=== PATIENT | female | born 1960 | race Caucasian/White ===

== ENCOUNTER → 2016-07-22 | Outpatient (CLI) | payer BC ==
[~2016-07-22] MED LIST: CIPR-255 PO; LACTCAP3 PO; LEVO75TA5 PO; LSN5 PO; MRLP17X PO
[2016-07-22 16:49] LABS: HEMATOCRIT 40.9 % (37-47); MEAN CORPUSCULAR HEMOGLOBIN 29.4 pg (25-34); MEAN CORPUSCULAR HGB CONC 33.7 g/dl (32-36); MEAN PLATELET VOLUME 12.4 fL (7.4-10.4); PLATELET COUNT 257 K/uL (130-400); WHITE BLOOD COUNT 12.47 K/uL (4.8-10.8)
[2016-07-22 17:32] LABS: ALT/SGPT 39 U/L (12-78); BLOOD UREA NITROGEN 20 mg/dl (7-18); BUN/CREATININE RATIO 21.3 (10-20); CALCIUM 9.4 mg/dl (8.5-10.1); CARBON DIOXIDE 26 mmol/L (21-32); CHLORIDE 104 mmol/L (98-107); CREATININE 0.94 mg/dl (0.60-1.20); GLUCOSE 128 mg/dl (70-99); POTASSIUM 4.1 mmol/L (3.5-5.1); SODIUM 138 mmol/L (136-145)
[2016-07-22 17:42] LABS: ALB/GLOB RATIO 1.1 (0.9-2); ALKALINE PHOSPHATASE 69 U/L (45-117); AST/SGOT 20 U/L (15-37)
== END | disposition home or self-care (01) ==
LOC: C.LAB 15:24
PROVIDERS: ATTEND Internal Medicine
DX: I10 Essential (primary) hypertension (principal); E03.9 Hypothyroidism, unspecified

== ENCOUNTER → 2016-08-19 | Outpatient (CLI) | payer BC ==
[2016-08-19 17:29] LABS: COMPLETE YES; HEMATOCRIT 41.4 % (37-47); IG% 0.1 %; LYMPH % 36.5 %; LYMPH ABS # 3.66 K/uL (1.2-3.4); MEAN CELL VOLUME 88.3 fL (80-100); MEAN CORPUSCULAR HEMOGLOBIN 29.6 pg (25-34); MEAN CORPUSCULAR HGB CONC 33.6 g/dl (32-36); MEAN PLATELET VOLUME 11.7 fL (7.4-10.4); MONO % 9.6 %; NEUT % 50.8 %; PLATELET COUNT 241 K/uL (130-400); RED BLOOD COUNT 4.69 M/uL (4.2-5.4); WHITE BLOOD COUNT 10.02 K/uL (4.8-10.8)
[2016-08-19 17:59] LABS: ALT/SGPT 51 U/L (12-78); AST/SGOT 25 U/L (15-37); BLOOD UREA NITROGEN 14 mg/dl (7-18); BUN/CREATININE RATIO 16.4 (10-20); CALCIUM 9.3 mg/dl (8.5-10.1); CARBON DIOXIDE 31 mmol/L (21-32); CHLORIDE 108 mmol/L (98-107); CREATININE 0.83 mg/dl (0.60-1.20); GLUCOSE 84 mg/dl (70-99); POTASSIUM 4.4 mmol/L (3.5-5.1); SODIUM 142 mmol/L (136-145)
[2016-08-19 18:01] LABS: ALB/GLOB RATIO 1.2 (0.9-2); ALKALINE PHOSPHATASE 67 U/L (45-117); AMYLASE 37 U/L (25-115); C-REACTIVE PROTEIN < 0.29 mg/dl (0-0.29)
[2016-08-23 16:37] LABS: IGA SERUM 185 mg/dL (81-463); TIS TRANS IGA 1 U/mL (<4)
== END | disposition home or self-care (01) ==
LOC: C.LAB1850 17:00
PROVIDERS: ATTEND Internal Medicine
DX: R14.0 Abdominal distension (gaseous) (principal)

== ENCOUNTER → 2017-07-21 | Outpatient (CLI) | payer BC ==
[2017-07-21 12:21] LABS: HEMATOCRIT 41.4 % (37-47); MEAN CELL VOLUME 87.2 fL (80-100); MEAN CORPUSCULAR HEMOGLOBIN 29.5 pg (25-34); MEAN CORPUSCULAR HGB CONC 33.8 g/dl (32-36); MEAN PLATELET VOLUME 12.3 fL (7.4-10.4); PLATELET COUNT 253 K/uL (130-400); RED CELL DISTRIBUTION WIDTH CV 12.8 % (11.5-14.5); WHITE BLOOD COUNT 6.76 K/uL (4.8-10.8)
[2017-07-21 12:30] LABS: ALBUMIN 4.3 gm/dl (3.4-5.0); ALT/SGPT 74 U/L (12-78); BLOOD UREA NITROGEN 15 mg/dl (7-18); CALCIUM 9.5 mg/dl (8.5-10.1); CARBON DIOXIDE 29 mmol/L (21-32); CHOLESTEROL 177 mg/dl (0-200); CREATININE 0.85 mg/dl (0.60-1.20); GLUCOSE 105 mg/dl (70-99); POTASSIUM 4.2 mmol/L (3.5-5.1); SODIUM 140 mmol/L (136-145)
[2017-07-21 12:39] LABS: ALKALINE PHOSPHATASE 75 U/L (45-117); AST/SGOT 35 U/L (15-37); LDL CHOLESTEROL CALCULATED 110 mg/dl; TOTAL PROTEIN 7.9 gm/dl (6.4-8.2)
== END | disposition home or self-care (01) ==
LOC: C.LAB 10:55
PROVIDERS: ATTEND Internal Medicine
DX: I10 Essential (primary) hypertension (principal); E03.9 Hypothyroidism, unspecified

== ENCOUNTER 2017-08-18 06:51 | Emergency (ER) | payer BC ==
[~2017-08-18] VITALS: Ht 157.5 cm; Wt 88.1 kg
[2017-08-18 06:53] VITALS: TEMP 36.7; Ht 157.5 cm; Wt 88.1 kg
[2017-08-18] MEDS ORDERED: BNT/10 PO (07:21)
[2017-08-18] MEDS ORDERED: PANT40TA PO (07:21)
[2017-08-18] MEDS ORDERED: SODIUM CHLORIDE 0.9% 1000ML 1,000 ML IV STA (07:23)
[2017-08-18] MEDS ORDERED: KETOROLAC TROMETHAMINE 30 MG/ML VIAL IV STA (07:31)
[2017-08-18 08:05] LABS: BASO ABS # 0.06 K/uL (0-0.2); EOS % 1.4 %; EOS ABS # 0.08 K/uL (0-0.5); HEMATOCRIT 38.4 % (37-47); HEMOGLOBIN 13.1 g/dL (12.0-16.0); IG# 0.01 K/uL (0.00-0.02); LYMPH % 32.8 %; LYMPH ABS # 1.89 K/uL (1.2-3.4); MEAN CELL VOLUME 86.1 fL (80-100); MEAN CORPUSCULAR HEMOGLOBIN 29.4 pg (25-34); MEAN CORPUSCULAR HGB CONC 34.1 g/dl (32-36); MEAN PLATELET VOLUME 11.7 fL (7.4-10.4); MONO % 9.4 %; MONO ABS # 0.54 K/uL (0.11-0.59); NEUT % 55.2 %; NEUT ABS # 3.19 K/uL (1.4-6.5); PLATELET COUNT 228 K/uL (130-400); RED CELL DISTRIBUTION WIDTH CV 12.5 % (11.5-14.5); RED CELL DISTRIBUTION WIDTH SD 39.8 fL (36.4-46.3); WHITE BLOOD COUNT 5.77 K/uL (4.8-10.8)
[2017-08-18 08:15] LABS: PTT PATIENT 27.9 SECONDS (21.0-31.0)
--- NOTE | 2017-08-18 08:15 | DIAGNOSTIC IMAGING REPORT ---
HEAD WITHOUT CONTRAST (CT) CLINICAL HISTORY: 57 years-old Female presenting with headache, arm pain, pain and numbness in left arm and fingers. TECHNIQUE: Multidetector CT imaging of the head was performed without the use of intravenous contrast. IV contrast: None. A dose lowering technique was used consistent with the principles of ALARA (as low as reasonably achievable). COMPARISON: 09/25/2005. CT DOSE (mGy.cm): The estimated cumulative dose is 669.45 mGycm. FINDINGS: [employer]boy topogram: Unremarkable. Ventricles and sulci normal in size. Brain parenchyma normal in appearance with preserved flowers-white differentiation. No mass effect or midline shift. No hemorrhage or acute territorial infarct. No extra-axial fluid collection. Paranasal sinuses and mastoid air cells clear. Calvarium intact. IMPRESSION: 1. No acute intracranial abnormality. Electronically signed by: Tulio Pearson M.D. 08/18/2017 8:14 AM Dictated Date/Time: 08/18/2017 8:12 AM
[2017-08-18 08:20] LABS: ALBUMIN 3.7 gm/dl (3.4-5.0); ALT/SGPT 92 U/L (12-78); AST/SGOT 38 U/L (15-37); BLOOD UREA NITROGEN 15 mg/dl (7-18); CALCIUM 8.6 mg/dl (8.5-10.1); CARBON DIOXIDE 23 mmol/L (21-32); CREATININE 0.89 mg/dl (0.60-1.20); GLUCOSE 114 mg/dl (70-99)
[2017-08-18 08:31] LABS: ALKALINE PHOSPHATASE 84 U/L (45-117); POTASSIUM 4.1 mmol/L (3.5-5.1); SODIUM 140 mmol/L (136-145); TOTAL PROTEIN 6.9 gm/dl (6.4-8.2)
[2017-08-18 08:34] LABS: INFLUENZA B ANTIGEN Neg for Influ B (NEG)
[2017-08-18 09:15] VITALS: BP 142/77; PULSE 55; O2SAT 100
[2017-08-18] MEDS ORDERED: KETO10TA PO (09:33)
--- NOTE | 2017-08-18 09:33 | EMERGENCY ROOM VISIT NOTE ---
History First contact with patient: 07:00 Chief Complaint: NEURO SYMPTOMS Stated Complaint: LEFT ARM PAIN/ NUBMNESS SINCE Thursday Nursing Triage Summary: Patient states "On Thursday, I was up for 21 hours. 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 I started a headache on Thursday after getting called in. I now have pain and numbness to my left arm all the way to my fingers. I did not hurt it all." History of Present Illness The patient is a 57 year old female who presents to the Emergency Room with complaints of "left arm pain/numbness since Thursday". The patient states that she was up for 21 hours on Thursday. 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 She was called in the early hours of the morning and when she woke up Thursday she had a headache in the right temporal region. She states that it progressed into Thursday and did not get any better with Tylenol. She also notes pain going from the left shoulder down to the left fingertips with some numbness/tingling. She denies any speech troubles. She notes that she vomited on Thursday around 2 AM and 5 AM. Left arm pain is aching. She has had similar in the past with a bulging disc in the neck. She notes that the headache is still there but it is dull and radiating to the back of her head. She notes that it was much more severe when it initially happened. She notes that her nausea and vomiting is getting better but the arm pain persists. She took Advil and Tylenol last night. She denies any generalized weakness, constipation, diarrhea, shortness of breath or chest pain. Review of Systems A complete 10-point Review of Systems was discussed with the patient, with pertinent positives and negatives listed in the History of Present Illness. All remaining Review of Systems questions can be considered negative unless otherwise specified. Past Medical/Surgical History Medical Problems: (1) Diverticulitis (2) Diverticulosis (3) Diverticulosis Colon (W/O Ment Of Hemorrhage) (4) GERD (gastroesophageal reflux disease) (5) HTN (hypertension) (6) Hypercholesterolemia (7) Hypertension Nos (8) Hypothyroidism (9) Hypothyroidism Nos Surgical Problems: (1) History of back surgery Family History Heart disease Social History Smoking Status: Never Smoker Alcohol Use: none Drug Use: none Marital Status: single Occupation Status: employed Current/Historical Medications Scheduled Ketorolac Tromethamine (Toradol), 1 TAB PO TID Lactobacillus (Acidophilus), 1 CAP PO TID Levothyroxine Sodium (Levothyroxine Sodium), 75 MCG PO DAILY Lisinopril (Lisinopril), 5 MG PO DAILY Pantoprazole (Protonix), 40 MG PO DAILY Scheduled PRN Dicyclomine HCl (Dicyclomine HCl), 10 MG PO TID PRN for Muscle Spasms Physical Exam Vital Signs Date Time Temp Pulse Resp B/P (MAP) Pulse Ox O2 Delivery O2 Flow Rate FiO2 08/18/17 09:52 08/18/17 09:15 55 17 142/77 100 Room Air 08/18/17 06:53 36.7 84 18 155/101 98 Room Air Physical Exam VITAL SIGNS - Vital signs and nursing notes were reviewed. Stable. GENERAL -57-year-old female appearing her stated age who is in no acute distress. Communicates well with provider and answers questions appropriately. SKIN - Without rashes. No meningeal or petechial rash. HEAD - NC/AT. EYES - PERRL with EOMI bilaterally. Sclera anicteric. EARS - No deformities of external structures noted on gross examination bilaterally. External auditory canals without discharge or otorrhea. Tympanic membranes pearly flowers without retraction or bulging. No fluid or purulent material visualized behind the TM. Handle of malleus, umbo, cone of light, pars tensa/flaccid all easily visualized. NOSE - Midline and without cyanosis. No epistaxis or purulent drainage noted. Septum midline without deviation or septal hematoma noted. MOUTH/OROPHARYNX - Without perioral cyanosis. Buccal mucosa pink and moist and without leukoplakia. Tongue midline with equal elevation of palate bilaterally. No tonsillar hypertrophy, erythema, or exudates noted. Fair dentition noted. NECK - Neck with FROM. Supple to palpation. no lymphadenopathy noted. No nuchal rigidity. LUNGS - Chest wall symmetric without accessory muscle use, intercostals retractions, or central cyanosis. Normal vesicular breath sounds CTA B/L. No wheezes, rales, or rhonchi appreciated. CARDIAC - RRR with S1/S2. No murmur, rubs, or gallops appreciated. EXTREMITIES - No clubbing or peripheral cyanosis. No pretibial edema present. She is neurovascularly intact in the left upper extremity. Excellent left bicipital reflex. +5/5 strength noted in UE/LE bilaterally. No neurovascular deficit appreciated. Decreased range of motion of the left shoulder secondary to pain elicited down the arm. No bony tenderness. NEUROLOGIC - Cranial nerves II through XII grossly intact. Sensory intact to light touch throughout. PSYCH - A&Ox3 and cooperates fully with examiner. Pt is very pleasant and interacts well with examiner. Medical Decision & Procedures ER Provider Diagnostic Interpretation: HEAD WITHOUT CONTRAST (CT) CLINICAL HISTORY: 57 years-old Female presenting with headache, arm pain, pain and numbness in left arm and fingers. TECHNIQUE: Multidetector CT imaging of the head was performed without the use of intravenous contrast. IV contrast: None. A dose lowering technique was used consistent with the principles of ALARA (as low as reasonably achievable). COMPARISON: 09/25/2005. CT DOSE (mGy.cm): The estimated cumulative dose is 669.45 mGycm. FINDINGS: [employer] topogram: Unremarkable. Ventricles and sulci normal in size. Brain parenchyma normal in appearance with preserved flowers-white differentiation. No mass effect or midline shift. No hemorrhage or acute territorial infarct. No extra-axial fluid collection. Paranasal sinuses and mastoid air cells clear. Calvarium intact. IMPRESSION: 1. No acute intracranial abnormality. Electronically signed by: Tulio Pearson M.D. 08/18/2017 8:14 AM Dictated Date/Time: 08/18/2017 8:12 AM Laboratory Results 08/18/17 07:50 Red Blood Count 4.46, Mean Corpuscular Volume 86.1, Mean Corpuscular Hemoglobin 29.4, Mean Corpuscular Hemoglobin Concent 34.1, Mean Platelet Volume 11.7, Neutrophils (%) (Auto) 55.2, Lymphocytes (%) (Auto) 32.8, Monocytes (%) (Auto) 9.4, Eosinophils (%) (Auto) 1.4, Basophils (%) (Auto) 1.0, Neutrophils # (Auto) 3.19, Lymphocytes # (Auto) 1.89, Monocytes # (Auto) 0.54, Eosinophils # (Auto) 0.08, Basophils # (Auto) 0.06 08/18/17 07:50 Test 4/17/18 07:44 08/18/17 07:50 Influenza Type A Antigen Neg for Influ A (NEG) Influenza Type B Antigen Neg for Influ B (NEG) White Blood Count 5.77 K/uL (4.8-10.8) Red Blood Count 4.46 M/uL (4.2-5.4) Hemoglobin 13.1 g/dL (12.0-16.0) Hematocrit 38.4 % (37-47) Mean Corpuscular Volume 86.1 fL (80-100) Mean Corpuscular Hemoglobin 29.4 pg (25-34) Mean Corpuscular Hemoglobin Concent 34.1 g/dl (32-36) Platelet Count 228 K/uL (130-400) Mean Platelet Volume 11.7 fL (7.4-10.4) Neutrophils (%) (Auto) 55.2 % Lymphocytes (%) (Auto) 32.8 % Monocytes (%) (Auto) 9.4 % Eosinophils (%) (Auto) 1.4 % Basophils (%) (Auto) 1.0 % Neutrophils # (Auto) 3.19 K/uL (1.4-6.5) Lymphocytes # (Auto) 1.89 K/uL (1.2-3.4) Monocytes # (Auto) 0.54 K/uL (0.11-0.59) Eosinophils # (Auto) 0.08 K/uL (0-0.5) Basophils # (Auto) 0.06 K/uL (0-0.2) RDW Standard Deviation 39.8 fL (36.4-46.3) RDW Coefficient of Variation 12.5 % (11.5-14.5) Immature Granulocyte % (Auto) 0.2 % Immature Granulocyte # (Auto) 0.01 K/uL (0.00-0.02) Erythrocyte Sedimentation Rate 2 mm/hr (0-21) Prothrombin Time 10.0 SECONDS (9.0-12.0) Prothromb Time International Ratio 1.0 (0.9-1.1) Activated Partial Thromboplast Time 27.9 SECONDS (21.0-31.0) Partial Thromboplastin Ratio 1.1 Anion Gap 8.0 mmol/L (3-11) Est Creatinine Clear Calc Drug Dose 72.8 ml/min Estimated GFR () 84.0 Estimated GFR (Non- 72.5 BUN/Creatinine Ratio 16.6 (10-20) Calcium Level 8.6 mg/dl (8.5-10.1) Magnesium Level 2.0 mg/dl (1.8-2.4) Total Bilirubin 0.5 mg/dl (0.2-1) Aspartate Amino Transf (AST/SGOT) 38 U/L (15-37) Alanine Aminotransferase (ALT/SGPT) 92 U/L (12-78) Alkaline Phosphatase 84 U/L (45-117) Troponin I < 0.015 ng/ml (0-0.045) C-Reactive Protein < 0.29 mg/dl (0-0.29) Total Protein 6.9 gm/dl (6.4-8.2) Albumin 3.7 gm/dl (3.4-5.0) Globulin 3.2 gm/dl (2.5-4.0) Albumin/Globulin Ratio 1.2 (0.9-2) Thyroid Stimulating Hormone (TSH) 0.688 uIu/ml (0.300-4.500) Lyme Disease IgG Antibody NEG (NEG) Lyme Disease IgM Antibody NEG (NEG) Medications Administered Medications (Trade) Dose Ordered Sig/Matthew Route Start Time Stop Time Status Last Admin Dose Admin Sodium Chloride 1,000 ml @ 999 mls/hr Q1H1M STAT IV 08/18/17 07:23 08/18/17 08:23 DC 08/18/17 07:52 999 MLS/HR Ketorolac Tromethamine (Toradol Inj) 30 mg NOW STAT IV 08/18/17 07:31 08/18/17 07:32 DC 08/18/17 07:52 30 MG Medical Decision Patient was seen and evaluated as above in room B2. Review was performed of nursing notes and vital signs. After obtaining a thorough history and physical examination the above work up was performed. She presents to us today with headache, left arm pain and nausea. She is nontoxic on exam. I believe that she is likely experiencing sequelae of sleep deprivation, and some dehydration. The headache is much better and she has no neurovascular deficit on exam. There is history of bulging disc in the neck and her left arm pain is worse with movement. There is no neurovascular deficit. I do not suspect CVA. She was given Toradol and feeling better. CBC reveals no concerning leukocytosis or anemia. Inflammatory markers negative. Coags negative. Metabolic panel reveals no evidence of kidney or liver failure. The AST and ALT were elevated but she is to follow-up with her family doctor for. Influenza and Lyme testing negative. CT scan was obtained of the head because of her presentation which was found to be negative. She was also given fluids. The patient was educated upon management, had questions answered prior to discharge, and was discharged home in good condition. Case was discussed with the attending physician. EKG per my interpretation reveals normal sinus rhythm rate of 58 bpm, and when compared to previous EKG of May 18, 2014 and no significant change was found. I attest that I have personally reviewed the patient medication list. I attest that I have reviewed the patient's blood pressure and it was found to be elevated likely secondary to situation. In the evaluation and treatment of this patient, the following differential diagnoses were considered: Concussion, Contrecoup Injury, Brain Tumor, Depression, Encephalitis, Hypothyroidism, Meningitis, CVA, TIA, Migraine, Cluster Headache, Intracranial Abnormality, Intracranial Hemorrhage, Subdural Hematoma, Subarachnoid Hemorrhage, Hydrocephalus. Impression Primary Impression: Headache Additional Impression: Arm pain, left Departure Information Dispostion Home / Self-Care Condition GOOD Prescriptions Ketorolac Tromethamine (TORADOL) 10 Mg Tab 1 TAB PO TID for 5 Days, #15 TAB Prov: Jt Barrera PA-C 08/18/17 Referrals Emeterio Aguilar D.OFabi (PCP) Patient Instructions My [facility] Additional Instructions You have been treated in the Emergency Department for a Headache. You have been prescribed Toradol to be used for pain control. Please do not take this with ibuprofen. For pain control, you can use the following [id number] medicines (if >12 yo): - Regular strength (325mg/tab) Tylenol (acetaminophen) 2 tabs every 4-6 hours as needed. Do not exceed 12 tablets in a 24 hour period. Avoid taking more than 3 grams (3000 mg) of Tylenol per day. This includes any other sources of acetaminophen you may take on a regular basis. - Regular strength (200 mg/tab) Advil (ibuprofen) 1-2 tabs every 4-6 hours as needed. Do not exceed a dose of 3200 mg per day. Please do not take this with Toradol. You should relax in a quiet, dark place for the rest of the day. Avoid any possible triggers including: cigarette smoke, caffeine, nicotine, chocolate, wine, beer, loud noises or music, or bright lights. You should schedule a follow-up appointment in 2-3 days with your Primary Care Provider or established Neurologist for further evaluation and treatment of your Headache. Return to the Emergency Department if your current symptoms worsen despite treatment course outlined above, or if you develop any of the following symptoms : intractable pain despite aforementioned treatment course, visual disturbances , loss of vision, unilateral weakness or facial drooping, slurring of speech, loss of coordination, or loss of consciousness. Problem Qualifiers
== END 2017-08-18 09:53 | disposition home or self-care (01) ==
LOC: C.EDB 06:53
DX: R51 Headache (principal); M79.602 Pain in left arm; K21.9 Gastro-esophageal reflux disease without esophagitis; I10 Essential (primary) hypertension; E03.9 Hypothyroidism, unspecified; K57.30 Diverticulosis of large intestine without perforation or abscess without bleeding; Z82.49 Family history of ischemic heart disease and other diseases of the circulatory system; Z79.899 Other long term (current) drug therapy

== ENCOUNTER 2021-11-13 23:23 | Observation (INO) ==
[2021-11-13] MEDS ORDERED: SODIUM CHLORIDE 0.9% 1000ML 1,000 ML IV ONE (23:46)
[2021-11-14] MEDS ORDERED: ACETAMINOPHEN 1,000 MG/100 ML VIAL IV STA (00:06)
[2021-11-14] MEDS ORDERED: FAMOTIDINE 20MG IV PUSH 20 MG/5 ML SYR IV STA (00:06)
[2021-11-14] MEDS ORDERED: ONDANSETRON INJ 2 MG/ML 2 ML VIAL IV STA (00:07)
[2021-11-14 00:50] LABS: Basophils # (auto) 0.05 K/uL (0-0.2); Basophils % (auto) 0.6 %; Eosinophils # (auto) 0.11 K/uL (0-0.50); Eosinophils % (auto) 1.3 %; Hematocrit (blood only) 37.4 % (34.1-44.9); Hemoglobin 12.3 g/dl (12.0-16.0); Immature Granulocytes # (auto) 0.04 K/uL (0.00-0.02); Immature Granulocytes % (auto) 0.5 %; Lymphocytes # (auto) 2.26 K/uL (1.2-3.4); Lymphocytes % (auto) 26.1 %; Mean Corpuscular Hemoglobin 28.9 pg (25.0-34.0); Mean Corpuscular Hgb Conc 32.9 g/dL (32.0-36.0); Mean Platelet Volume 12.2 fL (9.4-12.3); Monocytes # (auto) 0.73 K/uL (0.24-0.82); Monocytes % (auto) 8.4 %; Neutrophils # (auto) 5.48 K/uL (1.4-6.5); Neutrophils % (auto) 63.1 %; Platelet Count 195 K/uL (130-400); RDW Coefficient of Variation 12.2 % (11.5-14.5); RDW Standard Deviation 39.3 fL (36.4-46.3); Red Blood Count 4.25 M/uL (3.93-5.22); White Blood Count 8.67 K/ul (4.8-10.8)
[2021-11-14 01:17] LABS: Albumin Globulin Ratio 1.4 (0.9-2); Albumin Level 3.9 gm/dl (3.4-5.0); BUN Creatinine Ratio 19.4 (10-20); Bilirubin,Total 1.1 mg/dl (0.2-1.0); Calcium 8.3 mg/dl (8.5-10.1); Creatinine Clr Calc Pharmacy 69.5 ml/min; Est GFR (African American) 77.4 ml/min; Est GFR (Non-African American) 66.8 ml/min; Globulin 2.8 gm/dl (2.5-4.0); Magnesium 2.1 mg/dl (1.7-2.4); Phosphorus 3.3 mg/dl (2.5-4.9); Potassium 3.9 mmol/L (3.5-5.1); Total Protein 6.7 gm/dl (6.0-8.3)
[2021-11-14 01:18] LABS: Troponin I High Sensitivity 3.4 pg/ml (0-14)
[2021-11-14] MEDS ORDERED: SODIUM CHLORIDE 0.9% 1000ML 1,000 ML IV ONE (02:22)
--- NOTE | 2021-11-14 03:34 | Emergency Department Note ---
Impression & Plan Syncope, Diverticulitis, Abdominal pain, Nausea, Sinus bradycardia ED Provider Note NAME: EAGLE HERNANDEZ AGE: 61 SEX: F ARRIVES VIA: Ambulance INFORMANT: Patient ED PROVIDER(S): Mayo Arreola MD CHIEF COMPLAINT: Syncope PLAN: Disposition: Admit MEDICAL DECISION MAKING: The patient is a pleasant 61-year-old woman with a past medical history of hypertension who presents to the emergency department accompanied by her for evaluation of syncopal episode that occurred prior to arrival in the setting of the patient being discharged from this facility/emergency department shortly before her syncopal episode and was walking up to her house when she had increased pain and nausea and then fainted and lowered to the ground by her . reports she had 15 seconds of LOC and noticed some muscular spasms but once he awoke her she was not confused and was alert and oriented. The patient was diagnosed earlier this evening with diverticulitis where there was question of a possible coloenteric fistula however was seen by general surgery and recommendations were for outpatient follow-up and oral antibiotics. Patient reports she continues to have pain and nausea. She was treated with morphine prior to her discharge. On arrival the patient is uncomfortable no acute distress, afebrile stable vital signs. She has generalized lower abdominal tenderness without guarding or rebound. EKG demonstrates sinus bradycardia without evidence of high-grade block and no overt acute ischemia. Chest x-ray negative for acute cardiopulmonary process per my preliminary review. WBC, H/H and platelets within normal limits. Chemistry without metabolic acidosis. LFTs are unremarkable. High-sensitivity troponin 3.4, within normal limits. Lipase is elevated at 300, nonspecific. CT of the head was negative for acute process per preliminary stat rad report. Given the patient's ongoing pain and nausea which is likely contributing to vasovagal episode the patient agrees with plan for admission for further management. [facility] for [facility]. Triage Nursing notes reviewed and agree them. Prior medical records reviewed Vital Signs: reviewed and remarkable for sinus bradycardia. Differential diagnosis: Vasovagal event, dehydration, infection, hypoglycemia, electrolyte ab normalities, cardiac sources, intracerebral event, pulmonary embolism, seizure, toxicologic, neurologic, as well as other pathologies. ER treatment provided: See below. Diagnostics interpreted by me: ECG: Sinus bradycardia, 45 bpm, no ectopy, no high-grade block, no overt ST elevation or depression, QTC 446, QRS 96. Cardiac Monitoring: An order for continuous cardiac monitoring was placed and demonstrated Sinus bradycardia, 45 bpm, no ectopy. Laboratory studies: See below Imaging studies: See below Consultation(s): Case was discussed with Dr. Wu, [facility] hospitalist, who will evaluate the patient for admission. HPI: The patient is a pleasant 61-year-old woman with a past medical history of hypertension who presents to the emergency department accompanied by her for evaluation of syncopal episode that occurred prior to arrival in the setting of the patient being discharged from this facility/emergency department shortly before her syncopal episode and was walking up to her house when she had increased pain and nausea and then fainted and lowered to the ground by her . reports she had 15 seconds of LOC and noticed some muscular spasms but once he awoke her she was not confused and was alert and oriented. The patient was diagnosed earlier this evening with diverticulitis where there was question of a possible coloenteric fistula however was seen by general surgery and recommendations were for outpatient follow-up and oral antibiotics. Patient reports she continues to have pain and nausea. She was treated with morphine prior to her discharge. ROS: See above HPI for pertinent positives & negatives. A total of 10 systems reviewed and were otherwise negative. VITALS:See Below PHYSICAL EXAMINATION: GENERAL: Awake, alert, uncomfortable-appearing, in no distress HENT: Normocephalic, atraumatic. Oropharynx with dry mucous membranes and otherwise unremarkable. EYES: Normal conjunctiva. Sclera non-icteric. EOMI. No nystamgus. PEARRL. NECK: Supple. No nuchal rigidity. FROM. No JVD. RESPIRATORY: Clear to auscultation. CARDIAC: Regular rate, normal rhythm. Extremities warm and well perfused. Pulses equal. ABDOMEN: Soft, non-distended. No tenderness to palpation. No rebound or guarding. No masses. RECTAL: Deferred. MUSCULOSKELETAL: Chest examination reveals no tenderness. The back is symmetrical on inspection without obvious abnormality. There is no CVA t enderness to palpation. No joint edema. LOWER EXTREMITIES: Calves are equal size bilaterally and non-tender. No edema. No discoloration. NEURO: Normal sensorium. No sensory or motor deficits noted. 5/5 strength and SILT x 4 extremities. Cerebellar function intact including [id number], alternating palms, [id number]. SKIN: No rash or jaundice noted. Mayo Arreola MD Past Med/Surg History Medical History Diverticulosis GERD (gastroesophageal reflux disease) HTN (hypertension) Hypercholesterolemia PT NOT SURE Hypothyroidism Nausea after anesthesia Surgical History History of back surgery "ant cervical arthroplasty with discectomy C4-C6"/MILD LIMITATION WITH LO OKING UP History of colonoscopy S/P laparoscopic procedure r/o ectopic , had early IUP per notes Family History Mother Family history of diabetes mellitus Sister Family history of diabetes mellitus Sister Family history of diabetes mellitus Sister Family history of diabetes mellitus Denies family history of Ovarian cancer Deep vein thrombosis Clotting disorder Breast cancer Colorectal cancer Uterine cancer Social History Smoking Status: Former smoker Hx Alcohol Use: Yes Hx Substance Use: No Preferred Language: Guamanian Communication Ability: Effective Tool Adjuster Required: No Beliefs That Will Affect Care: None marital status: Current Living Situation: Spouse current occupational status: employed Feels Safe at Home: Yes Assistive Devices: None Allergies Allergies Allergy/AdvReac Type Severity Reaction Status Date / Time No Known Allergies Allergy Verified 09/19/21 14:14 Home Meds Home Medications Medication Instructions Recorded Confirmed lisinopril 5 mg tablet 10 mg PO QAM 08/06/20 09/19/21 levothyroxine 75 mcg capsule 75 mcg PO QAM 08/20/20 09/19/21 Previous Rx's Medication Instructions Recorded ciprofloxacin HCl 500 mg tablet 500 mg PO BID #20 tabs 11/13/21 (Cipro) metronidazole 500 mg tablet 500 mg PO Q8H 10 days #30 tabs 11/13/21 Results & Data (ED) Vital Signs Vital Signs - 24 hr 11/13/21 23:33 11/13/21 23:33 11/13/21 23:45 Pulse Rate 43 L Pulse Rate [Apical] Respiratory Rate 16 Respiratory Effort / Characteristics Respiratory Depth Blood Pressure 108/61 Blood Pressure [Right Arm] Blood Pressure Mean 76 Blood Pressure Mean [Right Arm] Pulse Oximetry 95 98 97 Oxygen Delivery Method Room Air Room Air Room Air Sepsis Recent Fever Within 48 Hours No Sepsis New/Unexplained Change in Mental Status No Sepsis Action Taken by Nursing No Action Required 11/14/21 01:10 11/14/21 03:00 Pulse Rate Pulse Rate [Apical] 42 L Respiratory Rate 19 Respiratory Effort / Characteristics Non-Labored Non-Labored Respiratory Depth Normal Normal Blood Pressure Blood Pressure [Right Arm] 97/63 L Blood Pressure Mean Blood Pressure Mean [Right Arm] 74 Pulse Oximetry Oxygen Delivery Method Sepsis Recent Fever Within 48 Hours Sepsis New/Unexplained Change in Mental Status Sepsis Action Taken by Nursing Laboratory Data Attestation: I reviewed the patient's lab results. Result diagrams: 11/14/21 00:38 11/14/21 00:38 Lab Results 11/14/21 11/14/21 Range/Units 00:38 00:38 WBC 8.67 (4.8-10.8) K/ul RBC 4.25 (3.93-5.22) M/uL Hgb 12.3 (12.0-16.0) g/dl Hct 37.4 (34.1-44.9) % MCV 88.0 (80.0-100.0) fL MCH 28.9 (25.0-34.0) pg MCHC 32.9 (32.0-36.0) g/dL RDW Std Deviation 39.3 (36.4-46.3) fL RDW Coeff of Kris 12.2 (11.5-14.5) % Plt Count 195 (130-400) K/uL MPV 12.2 (9.4-12.3) fL Immature Gran % (Auto) 0.5 % Neut % (Auto) 63.1 % Lymph % (Auto) 26.1 % Colbert % (Auto) 8.4 % Eos % (Auto) 1.3 % Baso % (Auto) 0.6 % Neut # (Auto) 5.48 (1.4-6.5) K/uL Lymph # (Auto) 2.26 (1.2-3.4) K/uL Colbert # (Auto) 0.73 (0.24-0.82) K/uL Eos # (Auto) 0.11 (0-0.50) K/uL Baso # (Auto) 0.05 (0-0.2) K/uL Immature Gran # (Auto) 0.04 H (0.00-0.02) K/uL Sodium 137 (136-145) mmol/L Potassium 3.9 (3.5-5.1) mmol/L Chloride 105 (98-107) mmol/L Carbon Dioxide 26 (21-32) mmol/L Anion Gap 6 (3-11) BUN 18 (6-23) mg/dl Creatinine 0.93 (0.6-1.2) mg/dl Est Cr Clr Drug Dosing 69.5 ml/min Est GFR ( Amer) 77.4 ml/min Est GFR (Non-Af Amer) 66.8 ml/min BUN/Creatinine Ratio 19.4 (10-20) Glucose 190 H (70-99(Fasting)) mg/dl Calcium 8.3 L (8.5-10.1) mg/dl Phosphorus 3.3 (2.5-4.9) mg/dl Magnesium 2.1 (1.7-2.4) mg/dl Total Bilirubin 1.1 H (0.2-1.0) mg/dl AST 24 (13-39) U/L ALT 39 (7-52) U/L Alkaline Phosphatase 57 (34-104) U/L Troponin I High Sens 3.4 (0-14) pg/ml Total Protein 6.7 (6.0-8.3) gm/dl Albumin 3.9 (3.4-5.0) gm/dl Globulin 2.8 (2.5-4.0) gm/dl Albumin/Globulin Ratio 1.4 (0.9-2) Lipase 303 H (11-82) U/L Administered Medications Discontinued Medications Sodium Chloride (Nss 1000ml) 1,000 mls @ 999 mls/hr IV .Q1H1M ONE Stop: 11/14/21 00:46 Last Infusion: 11/14/21 02:22 Dose: 0 mls/hr Documented By: Admin: 11/14/21 00:30 Dose: 999 mls/hr Documented By: ALMA Famotidine (Pepcid 20mg Iv Push) 20 mg in 5 mls @ 2.5 mls/min IV NOW STA Stop: 11/14/21 00:07 Last Admin: 11/14/21 01:17 Dose: 2.5 mls/min Documented By: ALMA Acetaminophen (Ofirmev) 1,000 mg in 100 mls @ 400 mls/hr IV NOW STA Stop: 11/14/21 00:20 Last Infusion: 11/14/21 02:22 Dose: 0 mls/hr Documented By: Admin: 11/14/21 01:16 Dose: 400 mls/hr Documented By: ALMA Sodium Chloride (Nss 1000ml) 1,000 mls @ 999 mls/hr IV .Q1H1M ONE Stop: 11/14/21 03:22 Last Admin: 11/14/21 02:59 Dose: 999 mls/hr Documented By: AMCIEJ Ondansetron HCl (Ondansetron Inj 2 Mg/Ml 2 Ml Vial) 4 mg IV NOW STA Stop: 11/14/21 00:08 Last Admin: 11/14/21 01:16 Dose: 4 mg Documented By: ALMA Imaging Data My Impression: CXR: No acute cardiopulmonary process per my preliminary review. Radiologist's Impression: STATRAD Preliminary Findings Only See Final Report For Complete Findings CT HEAD: No intracranial hemorrhage, mass-effect or midline shift. There is no abnormal extra axial fluid collection. No evidence of acute infarct. Mild periventricular white matter hypodensities are most consistent with chronic microangiopathy. The visualized paranasal sinuses and mastoid air cells are clear. No fracture. Radiologist: Jessy Tam MD Study ready at 01:31 and initial results transmitted at 01:52 Discharge Plan Visit Data Chief Complaint: Syncope ED Provider: Mayo Arreola Discharge Problem: Syncope, Diverticulitis, Abdominal pain, Nausea, Sinus bradycardia Forms Stand Alone Forms: My [facility] Prescriptions Prescriptions: No Action lisinopril 5 mg tablet 10 mg PO QAM levothyroxine 75 mcg Capsule 75 mcg PO QAM ciprofloxacin HCl [Cipro] 500 mg tablet 500 mg PO BID Qty: 20 0RF metronidazole 500 mg tablet 500 mg PO Q8H 10 Days Qty: 30 0RF Referrals Referrals: Edel Lisa DO [Primary Care Provider] -
[2021-11-14] MEDS ORDERED: NITROGLYCERIN SL 0.4 MG/TAB TAB SL PRN (05:21)
[2021-11-14] MEDS ORDERED: CARBOHYDRATES FOR HYPOGLYCEMIA PO PRN (05:30)
[2021-11-14] MEDS ORDERED: GLUCAGON FOR INJ 1 MG VIAL IM PRN (05:30)
[2021-11-14] MEDS ORDERED: DEXTROSE 50% 50 ML SYRINGE IV PRN (05:30)
[2021-11-14] MEDS ORDERED: GLUCOSE 10 TAB/TUBE PO PRN (05:30)
[2021-11-14] MEDS ORDERED: GLUCOSE 40% GEL 15 GM TUBE PO PRN (05:30)
[2021-11-14] MEDS: ONDANSETRON INJ 2 MG/ML 2 ML VIAL IV PRN (05:38)
[2021-11-14] MEDS: SODIUM CHLORIDE 0.9% 1000ML 1,000 ML IV SCH ×2 (05:38→16:10)
[2021-11-14] MEDS ORDERED: PIPERACILLIN/TAZOBACTAM 4.5 GM in DEXTROSE 5% 100 ML IV ONE (05:45)
[2021-11-14] MEDS: LEVOTHYROXINE SODIUM 75 MCG TABLET PO SCH (06:25)
--- NOTE | 2021-11-14 07:01 | CT Scan Report ---
CT SCAN OF THE BRAIN WITHOUT IV CONTRAST CLINICAL HISTORY: Syncope. Nausea. COMPARISON STUDY: CT of the brain dated 08/18/2017. TECHNIQUE: Unenhanced axial CT scan of the brain is performed from the vertex to the skull base. A d ose lowering technique was utilized adhering to the principles of ALARA. CT DOSE: 537.48 mGy.cm FINDINGS: Brain parenchyma: The brain parenchyma is normal in appearance. There is no hemorrhage, mass effect, or evidence of acute territorial ischemia by CT criteria. Jon-white matter differentiation is preser taco. No extra-axial fluid collection is seen. Ventricles, sulci, cisterns: Normal in configuration. Intracranial vasculature: The visualized intracranial vasculature at the skull base is normal in appe arance. Calvarium: Unremarkable. Sinuses and mastoids: The visualized paranasal sinuses are clear. The mastoid air cells are well pneu matized. Orbits: The bony orbits are grossly intact. IMPRESSION: There is no hemorrhage, mass effect, or evidence of acute territorial ischemia by CT jessie jones. ACT 112: Negative or not required by law. Electronically signed by: Jonathan Cotter M.D. 11/14/2021 7:00 AM
[2021-11-14 07:36] LABS: Basophils # (auto) 0.04 K/uL (0-0.2); Basophils % (auto) 0.5 %; Eosinophils # (auto) 0.03 K/uL (0-0.50); Eosinophils % (auto) 0.4 %; Hematocrit (blood only) 34.7 % (34.1-44.9); Hemoglobin 11.4 g/dl (12.0-16.0); Immature Granulocytes # (auto) 0.02 K/uL (0.00-0.02); Immature Granulocytes % (auto) 0.3 %; Lymphocytes # (auto) 1.45 K/uL (1.2-3.4); Lymphocytes % (auto) 19.1 %; Mean Corpuscular Hemoglobin 29.3 pg (25.0-34.0); Mean Corpuscular Hgb Conc 32.9 g/dL (32.0-36.0); Mean Corpuscular Volume 89.2 fL (80.0-100.0); Mean Platelet Volume 12.6 fL (9.4-12.3); Monocytes # (auto) 0.51 K/uL (0.24-0.82); Monocytes % (auto) 6.7 %; Neutrophils # (auto) 5.56 K/uL (1.4-6.5); Platelet Count 179 K/uL (130-400); RDW Coefficient of Variation 12.3 % (11.5-14.5); RDW Standard Deviation 40.1 fL (36.4-46.3); Red Blood Count 3.89 M/uL (3.93-5.22); White Blood Count 7.61 K/ul (4.8-10.8)
--- NOTE | 2021-11-14 07:40 | History and Physical Report ---
DATE OF ADMISSION: 11/14/2021. CHIEF COMPLAINT: Syncope. HISTORY OF PRESENT ILLNESS: A 61-year-old female with past medical history significant for type 2 diabetes, currently not on any medications, hypothyroidism, hypertension, diverticula of colon, presents with syncope. The patient was in the ER with abdominal pain and found to have sigmoid diverticulitis . Seen by surgery in Er and as there is no abscess or perforation and doing okay was discharged on oral antibiotics to follow as an outpatient. As soon as going home, when she was getting out of the car, she felt very nauseous, did not feel good, dizzy, felt weak and her sat her in a chair and she was sweating and hot. went inside to get a cool compressor, when he came back ,her eyes were rolling and she passed out for about 15 seconds and he tried to wake her up and called the ambulance. After 15 seconds, she woke up, but she seemed confused until the ambulance came when she seemed to talk and was brought in here. Currently, the patient is alert and oriented. Her heart rate is in the 40s. Denies any chest pain ,no shortness of breath, no cough. Feeling cold, but no fever. No blurred visions, no earache, no runny nose, no sore throat, otherwise, ambulates okay, has lower abdominal pain, she reports 6-7/10 severity. Has mild headache. Did not move her bowels for the last 2 days. Normal bladder movements. No swelling in the legs. ALLERGIES: No known drug allergies. PAST MEDICAL HISTORY: As mentioned above. PAST SURGICAL HISTORY: Anterior cervical arthroplasty at C4-C5 and C5-C6 levels. Lumbar disk arthroplasty. Treatment of ectopic . MEDICATIONS: The patient is on atorvastatin 40 mg p.o. daily, ciprofloxacin 500 mg p.o. b.i.d., levothyroxine 75 mcg p.o. daily, lisinopril 10 mg p.o. daily, metronidazole 500 mg p.o. q.8 hours. FAMILY HISTORY: Significant for sister has lymphoma, diabetes, hypertension. Father has diabetes, heart disorder, hypertension. Mother has heart disorder. Maternal grandfather has heart disorder. Paternal grandfather has heart disease. Maternal grandmother has heart disease. Paternal grandmother has heart disease. SOCIAL HISTORY: , no smoking. Alcohol occasional. No drug use. REVIEW OF SYSTEMS: As per HPI. Rest of the review of systems is negative. PHYSICAL EXAMINATION: GENERAL: The patient is obese, not in acute distress. VITAL SIGNS: Temperature afebrile, pulse 42, respiratory rate 19, blood pressure 97/63, oxygen 97% on room air. HEENT: Pupils equal, round and reactive to light. Oral mucosa moist. NECK: No JVD, no neck masses. CARDIOVASCULAR: S1 and S2 heard. Regular rate and rhythm. No murmur, no gallop. RESPIRATORY SYSTEM: Normal AP diameter. No accessory muscle use. No wheezing, no crackles. ABDOMEN: Soft, bowel sounds sluggish. Left lower quadrant abdominal tenderness present. Mild guarding. No rigidity, no distention. CENTRAL NERVOUS SYSTEM: Cranial nerves II through XII are grossly intact, nonfocal. EXTREMITIES: No edema, no erythema. LABORATORY DATA: WBC 8.6, hemoglobin 12.3, hematocrit 37.4, platelets 195. Sodium 137, potassium 3.9, chloride 105, bicarb 26, BUN is 18, creatinine 0.9, serum glucose 190, calcium 8.3, phosphorus 3.3, magnesium 2.2, total bilirubin 1.1, AST 24, ALT 39, alkaline phosphatase 61. Troponin I high sensitivity 3.4. Lipase 303. IMAGINGS: CT of the head, preliminary report, no acute findings. Chest x-ray, preliminary report, no acute findings. EKG: Sinus bradycardia at a rate of 45, no significant change was found. ASSESSMENT AND PLAN: This 61-year-old female presents with syncope. 1. Syncope. The patient was in the ER for diverticulitis, was discharged with oral antibiotics. After going home, getting out of the car, she had a syncopal episode that lasted about [address] of the head unremarkable. EKG showing sinus bradycardia, currently alert and oriented. We will monitor in tele floor, orthostatics, could be vasovagal from the pain. We will place her on IV fluids, normal saline 100 mL per hour. We will get an echocardiogram, serial troponins and consult cardiology. 2. Diverticulitis: placed on Zosyn while in hospital.. 3. History of hypertension: Currently, blood pressure is on lower side. We will hold lisinopril. Getting fluids. 4. History of hyperlipidemia: Continue statin. 5. History of diabetes: Not on any medication. Follow HbA1c levels. Place on insulin sliding scale. 6. Deep venous thrombosis prophylaxis: SCDs for now. DISPOSITION: Monitor in the tele floor. Expect to discharge home and follow with family doctor. Level 1 full code. PT, OT prior to discharge. Social service to help with discharge planning. Job ID: [id number]
--- NOTE | 2021-11-14 07:44 | XRay Report ---
SINGLE VIEW CHEST CLINICAL HISTORY: Atypical chest pain. FINDINGS: An AP, portable, upright chest radiograph is compared to study dated 05/18/2014. The cardiom ediastinal silhouette is top normal for projection. Mild atelectasis is noted at the lung bases. The lungs and pleural spaces are otherwise clear. No pneumothorax is seen. The skeletal structures are os teopenic. The bony thorax is grossly intact. Fusion hardware is noted in the lower cervical spine. IMPRESSION: No active disease in the chest. ACT 112: Negative or not required by law. Electronically signed by: Jonathan Cotter M.D. 11/14/2021 7:43 AM
[2021-11-14 08:20] LABS: Calcium 7.7 mg/dl (8.5-10.1); Creatinine Clr Calc Pharmacy 79.4 ml/min; Est GFR (African American) 92.9 ml/min; Est GFR (Non-African American) 80.1 ml/min; Potassium 4.7 mmol/L (3.5-5.1); Troponin I High Sensitivity 2.4 pg/ml (0-14)
--- NOTE | 2021-11-14 08:32 | Cardiology Consultation ---
Date of Consultation November 14, 2021 Assessment & Plan (1) Vasovagal syncope: (2) Diverticulitis: (3) Abdominal pain: (4) Sinus bradycardia: (5) Hypertension: Plan Patient with diverticulitis, diagnosed in the ER yesterday. Discharged with appropriate meds and liquid diet Upon returning home, she developed worsening abdominal pain with nausea, hot/flushed sensation and had syncopal spell while sitting on her front porch. LOC lasting about 15 seconds. No injuries. No incontinence. Returned to the ER. She was borderline hypotensive and bradycardic on EKG. She also had received high dose pain meds several hours before event. HS troponin negative. She has a long history of sinus jazmín per past EKG's with HR"s in the 40-60 bpm, without symptoms. Echo is pending. Likely vasovagal event in setting of severe abdominal pain, pain meds. Will review echo when available and monitor telemetry, but syncope does not appear to be secondary to symptomatic sinus bradycardia. No indication for pacemaker implantation at this time. Hold antihypertensives due to borderline hypotension. Her lipase is higher today compared to yesterday. Consider GI referral for further tx and evaluation of diverticulitis. Continue gentle hydration. Case to be discussed with Dr. Hopkins. Will follow. Supervising Physician Co-Signing Physician Notes 61-year-old female presented emergency department with abdominal discomfort and diagnosed with diverticulitis. She developed severe nausea and retching associated with abdominal discomfort. She became acutely lightheaded and passed out however she did not injure herself. Admitted through the emergency department. Telemetry demonstrates sinus bradycardia. She is currently feeling better. No lightheadedness or dizziness. Denies chest discomfort or shortness of breath. Denies history of syncope prior to this admission. PE: VSS. GEN: NAD, AAO x3. Heart: Regular, bradycardic, normal S1-S2. No murmur. Lungs: Clear bilateral, no rales, rhonchi, wheeze. Abdomen: Soft, diffuse tenderness. No rebound or guarding. Extremities: No edema. A/P: Agree with above PA-C history, physical exam, assessment and plan. Syncope likely related to vasovagal event in the setting of abdominal discomfort and nausea. No symptomatic bradycardia, significant pauses, or heart block recorded since admission. Continue to monitor telemetry. No medication changes at this time. History of Present Illness Reason for Consultation: Syncope Requesting Physician: Dr. Wu Attending Physician: Dr. Hopkins History of Present Illness Patient is a 61-year-old female presented to [facility] emergency department after a syncopal episode. 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 She was to discharged approximately 1 hour prior to event after being diagnosed with acute diverticulitis. Apparently when she returned home she was walking into her house when she developed severe abdominal pain nausea dizziness and had a syncopal event. W itnessed by her and loss of consciousness approximately 15 seconds. No bowel or bladder incontinence. History includes: Hypertension Dyslipidemia Hypothyroidism Sinus bradycardia, with prior EKG's demonstrating sinus bradycardia in the 50's. In 2018, she was evaluated by cardiology for atypical chest pain. She underwent exercise stress echo at that time which was negative for inducible ischemia, with normal LVEF and no significant valvular heart disease. UPon arrival to the emergency department, patient symptoms had resolved. She was mildly bradycardic in the mid 40s to 50s on EKG and telemetry. Blood pressure was also borderline hypotensive. She reportedly had nothing to eat/drink all day due to abdominal pain. She was admitted for further evaluation and work-up. EKG on arrival demonstrating Sinus bradycardia at 45 bpm. no acute ischemic changes. HS troponin normal. Head CT was negative for acute process. She reports being given high dose pain meds prior to discharge yesterday, possibly contributing. She denies recent symptoms of dizziness or other episodes of syncope. She has had HR's in the 40-60 range per old EKG's. At time of consult, patient resting in bed. She was able to eat liquid breakfast. She notes ongoing abdominal pain and diffuse tenderness. No recurrent dizziness, lightheadedness, syncope or near syncope. No recent chest pain or unusual shortness of breath. No sense of palpitations. No orthopnea, PND or edema. No fever, cough, chills. Allergies Allergy/AdvReac Type Severity Reaction Status Date / Time No Known Allergies Allergy Verified 09/19/21 14:14 Home Medications Medication Instructions Recorded Confirmed Type lisinopril 5 mg tablet 10 mg PO QAM 08/06/20 11/14/21 History levothyroxine 75 mcg capsule 75 mcg PO QAM 08/20/20 11/14/21 History ciprofloxacin HCl 500 mg tablet 500 mg PO BID #20 tabs 11/13/21 11/14/21 Rx (Cipro) metronidazole 500 mg tablet 500 mg PO Q8H 10 days #30 tabs 11/13/21 11/14/21 Rx atorvastatin 40 mg tablet 40 mg PO DAILY 11/14/21 11/14/21 History Patient History Medical History Diverticulosis GERD (gastroesophageal reflux disease) HTN (hypertension) Hypercholesterolemia PT NOT SURE Hypothyroidism Nausea after anesthesia Surgical History History of back surgery "ant cervical arthroplasty with discectomy C4-C6"/MILD LIMITATION WITH LOOKING UP History of colonoscopy S/P laparoscopic procedure r/o ectopic , had early IUP per notes Family History Mother Family history of diabetes mellitus Sister Family history of diabetes mellitus Sister Family history of diabetes mellitus Sister Family history of diabetes mellitus Denies family history of Ovarian cancer Deep vein thrombosis Clotting disorder Breast cancer Colorectal cancer Uterine cancer Social History Smoking Status: Never smoker Second Hand Exposure: No; Do You Dip or Chew Tobacco: No; Tobacco Cessation Education Requested by Patient: No Hx Alcohol Use: Yes Alcohol type: wine Hx Substance Use: No Preferred Language: Swedish Communication Ability: Effective Disc Recordist Required: No Beliefs That Will Affect Care: None marital status: Current Living Situation: Spouse current occupational status: employed Other Information That Helps Us Care for You: No Feels Safe at Home: Yes Safety Concerns: Feels Safe At This Time Assistive Devices: None Review of Systems Review of Systems: All systems reviewed & are unremarkable except as noted in HPI & below Physical Exam Constitutional: WD/WN, vitals as above + ill appearing Respiratory: normal respiratory effort, lungs clear to auscultation Cardiovascular: RRR, no murmur, no edema Gastrointestinal (Abdomen): Inspection/Auscultation: + abdomen distended and normal bowel sounds Percussion/Palpation: + abdomen tender Skin: no rashes, warm and dry Neurologic: PERRL, EOMI, accommodation nl, no face palsy, no dysarthria Psychiatric: A+Ox3, euthymic affect Results & Data ([facility]) Vital Signs (Past 12 Hours) Vital Signs Temp Pulse Pulse Pulse Resp BP BP 11/14/21 06:22 36.4 C L 47 L 17 101/66 11/14/21 06:10 46 L 11/14/21 05:21 36.4 C L 52 L 15 98/61 L 11/14/21 05:21 11/14/21 05:51 36.4 C L 52 L 15 98/61 L 11/14/21 05:49 62 11/14/21 05:00 48 L 12 11/14/21 04:50 47 L 10 L 104/67 11/14/21 04:40 41 L 15 11/14/21 04:30 46 L 11 L 11/14/21 04:20 49 L 17 11/14/21 04:10 57 L 19 11/14/21 04:00 45 L 28 H 11/14/21 03:50 43 L 17 11/14/21 03:40 47 L 14 11/14/21 03:30 46 L 14 11/14/21 03:20 49 L 24 11/14/21 03:10 44 L 13 11/14/21 03:00 49 L 13 11/14/21 02:50 47 L 14 11/14/21 02:40 44 L 17 11/14/21 02:30 46 L 14 11/14/21 02:22 45 L 12 11/14/21 02:10 45 L 12 11/14/21 02:00 45 L 17 11/14/21 02:00 124/70 11/14/21 01:50 42 L 13 11/14/21 01:40 44 L 12 11/14/21 01:37 97/63 L 11/14/21 01:37 42 L 15 11/14/21 01:36 43 L 14 11/14/21 01:15 101/72 11/14/21 01:15 43 L 14 11/14/21 01:10 45 L 15 11/14/21 01:00 42 L 11 L 11/14/21 00:50 42 L 12 11/14/21 00:40 44 L 12 11/14/21 00:30 41 L 13 11/14/21 00:20 46 L 14 11/14/21 00:10 42 L 20 11/14/21 00:00 44 L 13 11/13/21 23:50 45 L 13 11/13/21 23:40 43 L 14 11/13/21 23:33 45 L 12 11/14/21 05:15 11/14/21 01:10 42 L 19 97/63 L 11/13/21 23:45 11/13/21 23:33 11/13/21 23:33 43 L 16 108/61 Pulse Ox Pulse Ox O2 Del Method O2 Del Method 11/14/21 06:22 97 Room Air 11/14/21 06:10 11/14/21 05:21 98 Room Air 11/14/21 05:21 98 Room Air 11/14/21 05:51 98 11/14/21 05:49 11/14/21 05:00 96 11/14/21 04:50 95 11/14/21 04:40 95 11/14/21 04:30 96 11/14/21 04:20 96 11/14/21 04:10 96 11/14/21 04:00 95 11/14/21 03:50 95 11/14/21 03:40 95 11/14/21 03:30 99 11/14/21 03:20 96 11/14/21 03:10 97 11/14/21 03:00 96 11/14/21 02:50 96 11/14/21 02:40 97 11/14/21 02:30 96 11/14/21 02:22 98 11/14/21 02:10 97 11/14/21 02:00 98 11/14/21 02:00 11/14/21 01:50 96 11/14/21 01:40 97 11/14/21 01:37 11/14/21 01:37 11/14/21 01:36 96 11/14/21 01:15 11/14/21 01:15 11/14/21 01:10 11/14/21 01:00 11/14/21 00:50 11/14/21 00:40 11/14/21 00:30 11/14/21 00:20 11/14/21 00:10 98 11/14/21 00:00 98 11/13/21 23:50 97 11/13/21 23:40 98 11/13/21 23:33 11/14/21 05:15 Room Air 11/14/21 01:10 11/13/21 23:45 97 Room Air 11/13/21 23:33 98 Room Air 11/13/21 23:33 95 Room Air Laboratory Results Laboratory Results WBC 7.61 K/ul (4.8-10.8) 11/14/21 06:46 RBC 3.89 M/uL (3.93-5.22) L 11/14/21 06:46 Hgb 11.4 g/dl (12.0-16.0) L 11/14/21 06:46 Hct 34.7 % (34.1-44.9) 11/14/21 06:46 MCV 89.2 fL (80.0-100.0) 11/14/21 06:46 MCH 29.3 pg (25.0-34.0) 11/14/21 06:46 MCHC 32.9 g/dL (32.0-36.0) 11/14/21 06:46 RDW Std Deviation 40.1 fL (36.4-46.3) 11/14/21 06:46 RDW Coeff of Kris 12.3 % (11.5-14.5) 11/14/21 06:46 Plt Count 179 K/uL (130-400) 11/14/21 06:46 MPV 12.6 fL (9.4-12.3) H 11/14/21 06:46 Immature Gran % (Auto) 0.3 % 11/14/21 06:46 Neut % (Auto) 73.0 % 11/14/21 06:46 Lymph % (Auto) 19.1 % 11/14/21 06:46 Collier % (Auto) 6.7 % 11/14/21 06:46 Eos % (Auto) 0.4 % 11/14/21 06:46 Baso % (Auto) 0.5 % 11/14/21 06:46 Neut # (Auto) 5.56 K/uL (1.4-6.5) 11/14/21 06:46 Lymph # (Auto) 1.45 K/uL (1.2-3.4) 11/14/21 06:46 Collier # (Auto) 0.51 K/uL (0.24-0.82) 11/14/21 06:46 Eos # (Auto) 0.03 K/uL (0-0.50) 11/14/21 06:46 Baso # (Auto) 0.04 K/uL (0-0.2) 11/14/21 06:46 Immature Gran # (Auto) 0.02 K/uL (0.00-0.02) 11/14/21 06:46 Sodium 136 mmol/L (136-145) 11/14/21 06:46 Potassium 4.7 mmol/L (3.5-5.1) D 11/14/21 06:46 Chloride 108 mmol/L (98-107) H 11/14/21 06:46 Carbon Dioxide 24 mmol/L (21-32) 11/14/21 06:46 Anion Gap 4 (3-11) 11/14/21 06:46 BUN 16 mg/dl (6-23) 11/14/21 06:46 Creatinine 0.80 mg/dl (0.6-1.2) 11/14/21 06:46 Est Cr Clr Drug Dosing 79.4 ml/min 11/14/21 06:46 Est GFR ( Amer) 92.9 ml/min 11/14/21 06:46 Est GFR (Non-Af Amer) 80.1 ml/min 11/14/21 06:46 BUN/Creatinine Ratio 20.0 (10-20) 11/14/21 06:46 Glucose 176 mg/dl (70-99(Fasting)) H 11/14/21 06:46 Calcium 7.7 mg/dl (8.5-10.1) L 11/14/21 06:46 Phosphorus 3.3 mg/dl (2.5-4.9) 11/14/21 00:38 Magnesium 2.0 mg/dl (1.7-2.4) 11/14/21 06:46 Total Bilirubin 1.1 mg/dl (0.2-1.0) H 11/14/21 00:38 AST 24 U/L (13-39) 11/14/21 00:38 ALT 39 U/L (7-52) 11/14/21 00:38 Alkaline Phosphatase 57 U/L (34-104) 11/14/21 00:38 Troponin I High Sens 2.4 pg/ml (0-14) 11/14/21 06:46 Total Protein 6.7 gm/dl (6.0-8.3) 11/14/21 00:38 Albumin 3.9 gm/dl (3.4-5.0) 11/14/21 00:38 Globulin 2.8 gm/dl (2.5-4.0) 11/14/21 00:38 Albumin/Globulin Ratio 1.4 (0.9-2) 11/14/21 00:38 Lipase 303 U/L (11-82) H 11/14/21 00:38 Impressions Chest X-Ray 11/13/21 23:45 SINGLE VIEW CHEST CLINICAL HISTORY: Atypical chest pain. FINDINGS: An AP, portable, upright chest radiograph is compared to study dated 05/18/2014. The cardiomediastinal silhouette is top normal for projection. Mild atelectasis is noted at the lung bases. The lungs and pleural spaces are otherwise clear. No pneumothorax is seen. The skeletal structures are osteopenic. The bony thorax is grossly intact. Fusion hardware is noted in the lower cervical spine. IMPRESSION: No active disease in the chest. ACT 112: Negative or not required by law. Electronically signed by: Jonathan Cotter M.D. 11/14/2021 7:[address] 11/14/21 00:08 CT SCAN OF THE BRAIN WITHOUT IV CONTRAST CLINICAL HISTORY: Syncope. Nausea. COMPARISON STUDY: CT of the brain dated 08/18/2017. TECHNIQUE: Unenhanced axial CT scan of the brain is performed from the vertex to the skull base. A dose lowering technique was utilized adhering to the principles of ALARA. CT DOSE: 537.48 mGy.cm FINDINGS: Brain parenchyma: The brain parenchyma is normal in appearance. There is no hemorrhage, mass effect, or evidence of acute territorial ischemia by CT criteria. Jon-white matter differentiation is preserved. No extra-axial fluid collection is seen. Ventricles, sulci, cisterns: Normal in configuration. Intracranial vasculature: The visualized intracranial vasculature at the skull base is normal in appearance. Calvarium: Unremarkable. Sinuses and mastoids: The visualized paranasal sinuses are clear. The mastoid air cells are well pneumatized. Orbits: The bony orbits are grossly intact. IMPRESSION: There is no hemorrhage, mass effect, or evidence of acute territorial ischemia by CT criteria. ACT 112: Negative or not required by law. Electronically signed by: Jonathan Cotter M.D. 11/14/2021 7:00 AM Diagnostic Findings Telemetry reviewed: Sinus bradycardia ranging 45 to 65 bpm since admission. No pauses or high degree AV block. EKG"s reviewed: Sinus bradycardia at 45 bpm, no acute changes Echo pending Medications Administered Medications lisinopril 5 mg tablet 10 mg PO QAM 08/06/20 [History Confirmed 11/14/21] levothyroxine 75 mcg capsule 75 mcg PO QAM 08/20/20 [History Confirmed 11/14/21] ciprofloxacin HCl 500 mg tablet (Cipro) 500 mg PO BID #20 tabs 11/13/21 [Rx Confirmed 11/14/21] metronidazole 500 mg tablet 500 mg PO Q8H 10 days #30 tabs 11/13/21 [Rx Confirmed 11/14/21] atorvastatin 40 mg tablet 40 mg PO DAILY 11/14/21 [History Confirmed 11/14/21] Home Medications Acetaminophen (Acetaminophen 325 Mg Tab) 650 mg PO Q4H PRN PRN Reason: Pain or Fever Stop: 12/14/21 05:20 Atorvastatin Calcium (Atorvastatin 40 Mg Tab) 40 mg PO DAILY [facility]VIN Stop: 12/14/21 08:59 Dextrose (Dextrose 50% 50 Ml Syringe) 25 - 50 ml IV UD PRN; Protocol PRN Reason: Hypoglycemia Protocol Stop: 12/14/21 05:29 Glucagon (Glucagon For Inj 1 Mg Vial) 1 mg IM UD PRN; Protocol PRN Reason: Hypoglycemia Protocol Stop: 12/14/21 05:29 Glucose (Glucose 40% Gel 15 Gm Tube) 15 - 30 gm PO UD PRN; Protocol PRN Reason: Hypoglycemia Protocol Stop: 12/14/21 05:29 Glucose (Glucose 10 Tab/Tube) 4 - 8 tab PO UD PRN; Protocol PRN Reason: Hypoglycemia Protocol Stop: 12/14/21 05:29 Sodium Chloride (Nss 1000ml) 1,000 mls @ 100 mls/hr IV .Q10H ALVIN Stop: 12/14/21 05:20 Last Admin: 11/14/21 05:38 Dose: 100 mls/hr Piperacillin Sod/Tazobactam (Sod 4.5 gm/ Dextrose) 120 mls @ 30 mls/hr IV Q8H ALVIN; Protocol Stop: 11/24/21 11:59 Insulin Aspart (Insulin Aspart Per Unit) 0 units SC ACHS [facility] Stop: 12/14/21 07:29 Levothyroxine Sodium (Levothyroxine Sodium 75 Mcg Tablet) 75 mcg PO DAILYBB [facility] Stop: 12/14/21 06:29 Last Admin: 11/14/21 06:25 Dose: 75 mcg Miscellaneous (Carbohydrates For Hypoglycemia ) 15 - 30 gm PO UD PRN PRN Reason: Hypoglycemia Treatment Stop: 12/14/21 05:29 Nitroglycerin (Nitroglycerin Sl 0.4 Mg/Tab Tab) 0.4 mg SL Q5M PRN PRN Reason: Chest Pain Stop: 12/14/21 05:20 Ondansetron HCl (Ondansetron Inj 2 Mg/Ml 2 Ml Vial) 4 mg IV Q6H PRN PRN Reason: Nausea Stop: 12/14/21 05:20 Last Admin: 11/14/21 05:38 Dose: 4 mg
[2021-11-14] MEDS: ATORVASTATIN 40 MG TAB PO SCH (09:00)
[2021-11-14] MEDS: INSULIN ASPART PER UNIT SC SCH ×4 (09:01→21:54)
[2021-11-14 10:56] LABS: Estimated Average Glucose 151 mg/dl; Hemoglobin A1C 6.9 % (4.5-5.6)
--- NOTE | 2021-11-14 12:30 | Electrocardiogram Report ---
Test Reason : Blood Pressure : / mmHG Vent. Rate : 045 BPM Atrial Rate : 045 BPM P-R Int : 182 ms QRS Dur : 096 ms QT Int : 516 ms P-R-T Axes : 061 039 032 degrees QTc Int : 446 ms Sinus bradycardia Otherwise normal ECG When compared with ECG of 08-AUG-2020 15:14, No significant change was found Confirmed by Zack Watts ([id number]) on 11/14/2021 12:29:59 PM Referred By: REFERRED SELF Confirmed By:Phan Watts
[2021-11-14] MEDS: PIPERACILLIN/TAZOBACTAM 4.5 GM in DEXTROSE 5% 100 ML IV SCH (12:44)
[2021-11-14] MEDS: ACETAMINOPHEN 325 MG TAB PO PRN ×2 (17:29→21:36)
--- NOTE | 2021-11-14 19:47 | Communication Note ---
Date of Service: November 14, 2021 Pt was seen and examined for syncope and diverticulitis. She is complaint on abdominal tenderness due to the diverticulitis and currently on IV zosyn. Diet advance to full liquid. Her syncopal episode mostly vasovagal. CT head showed no acute intracranial finding. No cardiac arrhythmia noted on telemonitor. cardiology on board. No more testing from cardiac standpoint. Continue monitor closely in telemetry. MD Pretty
[2021-11-15] MEDS: PIPERACILLIN/TAZOBACTAM 4.5 GM in DEXTROSE 5% 100 ML IV SCH ×3 (01:01→17:49)
[2021-11-15] MEDS: SODIUM CHLORIDE 0.9% 1000ML 1,000 ML IV SCH ×4 (02:10→22:41)
[2021-11-15] MEDS: LEVOTHYROXINE SODIUM 75 MCG TABLET PO SCH (05:22)
[2021-11-15] MEDS: INSULIN ASPART PER UNIT SC SCH ×4 (08:00→20:26)
[2021-11-15] MEDS: ATORVASTATIN 40 MG TAB PO SCH (08:28)
[2021-11-15] MEDS ORDERED: bisacodyL 5 MG TABEC PO ONE (09:31)
[2021-11-15 10:41] LABS: BUN Creatinine Ratio 8.6 (10-20); Calcium 8.1 mg/dl (8.5-10.1); Creatinine Clr Calc Pharmacy 69.7 ml/min; Est GFR (African American) 77.4 ml/min; Est GFR (Non-African American) 66.8 ml/min; Potassium 4.2 mmol/L (3.5-5.1)
[2021-11-15] MEDS: ACETAMINOPHEN 325 MG TAB PO PRN (11:23)
[2021-11-15] MEDS: ONDANSETRON INJ 2 MG/ML 2 ML VIAL IV PRN (16:58)
--- NOTE | 2021-11-15 18:05 | Electrocardiogram Report ---
Test Reason : Blood Pressure : / mmHG Vent. Rate : 054 BPM Atrial Rate : 054 BPM P-R Int : 170 ms QRS Dur : 084 ms QT Int : 440 ms P-R-T Axes : 059 056 027 degrees QTc Int : 417 ms Sinus bradycardia Otherwise normal ECG When compared with ECG of 13-NOV-2021 23:36, No significant change was found Confirmed by Zack Watts ([id number]) on 11/15/2021 6:04:56 PM Referred By: REFERRED SELF Confirmed By:Phan Watts
--- NOTE | 2021-11-15 22:07 | Hospitalist Progress Note ---
Date of Service November 15, 2021 Assessment & Plan (1) Syncope: Plan: Present on admission for brief episode of syncope Possible related to vasovagal withsevere abdominal pain, pain meds. CT head showed no hemorrhage, mass effect, or evidence of acute territorial ischemia No focal neuro deficit exam ECHO showed normal LV wall motion. EF 65-70% Cardiology on board Syncope does not appear to be secondary to symptomatic sinus bradycardia as per cardio Clinically stable Diverticulitis CT abd/pelvis on 11/13 showed Mild acute sigmoid diverticulitis. No perforation or abscess. Lipase increased to 300, now trending down Currently on IV Zosyn Will advance diet to full liquid Continue monitor closely Bradycardia Long history of sinus jazmín per past EKG's with HR"s in the 40-60 bpm, without symptoms Cardiology on board syncope does not appear to be secondary to symptomatic sinus bradycardia as per cardiology No indication for pacemaker implantation at this time. Continue monitor History of hypertension BP stable Continue to hold Lisinopril due to borderline BP History of hyperlipidemia Continue statin. History of diabetes HgbA1c 6.9 (11/14/21) Continue Insulin sliding scale Continue monitor BS Deep venous thrombosis prophylaxis: SCDs Will add Lovenox subq Code status Full code Admission and Anticipated Discharge Date Admission Date: November 14, 2021 Subjective Pt was seen and examined for syncope and abdominal pain Lying in bed with no acute distress with as bedside Pt said that she continues to have abdominal tenderness Denies any chest pain, palpitation, dizziness and SOB Review of Systems Review of Systems: All systems reviewed & are unremarkable except as noted in Subjective Physical Exam Physical Exam: General- No acute distress Head- atraumatic Eyes- PERRL, EOMI, ENT- oropharynx clear Neck- supple, no JVD Lungs- clear to auscultation Heart- regular rhythm; no murmur Abdomen- normal bowel sounds, +abdominal tenderness Extremities- no calf tenderness Neuro- alert, oriented x 3; PERRL, EOMI; no facial palsy; no dysarthria Skin- warm & dry Results & Data Results & Data ([facility]) Vital Signs (Past 12 Hours) Vital Signs Temp Pulse Pulse Resp BP Pulse Ox O2 Del Method 11/15/21 19:00 37.1 C 49 L 16 120/81 97 11/15/21 15:39 36.7 C 54 L 18 125/78 97 Room Air 11/15/21 12:27 36.7 C 52 L 16 137/85 97 Room Air
[2021-11-16] MEDS: PIPERACILLIN/TAZOBACTAM 4.5 GM in DEXTROSE 5% 100 ML IV SCH ×2 (01:39→08:51)
[2021-11-16] MEDS ORDERED: FUROSEMIDE 40 MG/4 ML VIAL IV ONE (03:43)
[2021-11-16] MEDS ORDERED: LEVALBUTEROL HCL 1.25 MG/3 ML NEB NEB STA (03:43)
[2021-11-16] MEDS ORDERED: FUROSEMIDE INJ 20 MG/2 ML VIAL IV ONE ×2 (03:43→15:24)
[2021-11-16] MEDS: LEVOTHYROXINE SODIUM 75 MCG TABLET PO SCH (06:15)
--- NOTE | 2021-11-16 07:38 | XRay Report ---
XR chest 1V portable HISTORY: wheezing COMPARISON: Chest 11/14/2021. FINDINGS: No pneumothorax. The cardiac silhouette is borderline enlarged. Cervical spinal fusion hard marcos is again noted. There is mild central pulmonary vascular congestion without overt edema. This palumbo s developed in the interval. Suspect trace bilateral pleural effusions. IMPRESSION: Interval development of mild central pulmonary vascular congestion and trace bilateral pleural effusi ons. ACT 112: Negative or not required by law. Electronically signed by: Kyler Washington M.D. 11/16/2021 7:36 AM
[2021-11-16] MEDS: INSULIN ASPART PER UNIT SC SCH ×3 (08:51→17:16)
[2021-11-16] MEDS: ATORVASTATIN 40 MG TAB PO SCH (08:51)
[2021-11-16] MEDS ORDERED: ENOXAPARIN INJ 40 MG/0.4 ML SYR SQ SCH (09:00)
[2021-11-16] MEDS ORDERED: bisacodyL 5 MG TABEC PO ONE (11:08)
--- NOTE | 2021-11-16 11:25 | Electrocardiogram Report ---
Test Reason : Blood Pressure : / mmHG Vent. Rate : 050 BPM Atrial Rate : 050 BPM P-R Int : 168 ms QRS Dur : 088 ms QT Int : 446 ms P-R-T Axes : 051 051 019 degrees QTc Int : 406 ms Sinus bradycardia Otherwise normal ECG When compared with ECG of 15-NOV-2021 06:30, No significant change was found Confirmed by Ra Valdovinos ([id number]) on 11/16/2021 11:24:48 AM Referred By: REFERRED SELF Confirmed By:Ra Valdovinos
--- NOTE | 2021-11-16 17:40 | Discharge Summary ---
Date of Service November 16, 2021 Admission HPI Per Admitting Provider CHIEF COMPLAINT: Syncope. HISTORY OF PRESENT ILLNESS: A 61-year-old female with past medical history significant for type 2 diabetes, currently not on any medications, hypothyroidism, hypertension, diverticula of colon, presents with syncope. The patient was in the ER with abdominal pain and found to have sigmoid diverticulitis . Seen by surgery in Er and as there is no abscess or perforation and doing okay was discharged on oral antibiotics to follow as an outpatient. As soon as going home, when she was getting out of the car, she felt very nauseous, did not feel good, dizzy, felt weak and her sat her in a chair and she was sweating and hot. went inside to get a cool compressor, when he came back ,her eyes were rolling and she passed out for about 15 seconds and he tried to wake her up and called the ambulance. After 15 seconds, she woke up, but she seemed confused until the ambulance came when she seemed to talk and was brought in here. Currently, the patient is alert and sherlyn ented. Her heart rate is in the 40s. Denies any chest pain ,no shortness of breath, no cough. Feeling cold, but no fever. No blurred visions, no earache, no runny nose, no sore throat, otherwise, ambulates okay, has lower abdominal pain, she reports 6-7/10 severity. Has mild headache. Did not move her bowels for the last 2 days. Normal bladder movements. No swelling in the legs. Admission Exam Per Admitting Provider GENERAL: The patient is obese, not in acute distress. VITAL SIGNS: Temperature afebrile, pulse 42, respiratory rate 19, blood pressure 97/63, oxygen 97% on room air. HEENT: Pupils equal, round and reactive to light. Oral mucosa moist. NECK: No JVD, no neck masses. CARDIOVASCULAR: S1 and S2 heard. Regular rate and rhythm. No murmur, no gallop. RESPIRATORY SYSTEM: Normal AP diameter. No accessory muscle use. No wheezing, no crackles. ABDOMEN: Soft, bowel sounds sluggish. Left lower quadrant abdominal tenderness present. Mild guarding. No rigidity, no distention. CENTRAL NERVOUS SYSTEM: Cranial nerves II through XII are grossly intact, nonfocal. EXTREMITIES: No edema, no erythema. Principal Diagnosis Syncope Diverticulitis Bradycardia History of hypertension History of hyperlipidemia History of diabetes Discharge Exam General- No acute distress Head- atraumatic Eyes- PERRL, EOMI, ENT- oropharynx clear Neck- supple, no JVD Lungs- clear to auscultation Heart- regular rhythm; no murmur Abdomen- normal bowel sounds, +abdominal tenderness Extremities- no calf tenderness Neuro- alert, oriented x 3; PERRL, EOMI; no facial palsy; no dysarthria Skin- warm & dry Discharge Data Allergies Allergy/AdvReac Type Severity Reaction Status Date / Time No Known Allergies Allergy Verified 09/19/21 14:14 Consultations 11/14/21 02:26 ED Decision to Admit Stat 11/14/21 08:00 Consult Cardiology Routine Ordered Studies 11/14/21 00:08 CT head/brain wo con Urgent XR chest 1V portable HISTORY: wheezing COMPARISON: Chest 11/14/2021. FINDINGS: No pneumothorax. The cardiac silhouette is borderline enlarged. Cervical spinal fusion hardware is again noted. There is mild central pulmonary vascular congestion without overt edema. This has developed in the interval. Suspect trace bilateral pleural effusions. IMPRESSION: Interval development of mild central pulmonary vascular congestion and trace bilateral pleural effusions. ACT 112: Negative or not required by law. Electronically signed by: Kyler Washington M.D. 11/16/2021 7:36 AM Dictated:11/16/21734 Transcribed: 11/16/21734 CT SCAN OF THE BRAIN WITHOUT IV CONTRAST CLINICAL HISTORY: Syncope. Nausea. COMPARISON STUDY: CT of the brain dated 08/18/2017. TECHNIQUE: Unenhanced axial CT scan of the brain is performed from the vertex to the skull base. A dose lowering technique was utilized adhering to the principles of ALARA. CT DOSE: 537.48 mGy.cm FINDINGS: Brain parenchyma: The brain parenchyma is normal in appearance. There is no hemorrhage, mass effect, or evidence of acute territorial ischemia by CT criteria. Jon-white matter differentiation is preserved. No extra-axial fluid collection is seen. Ventricles, sulci, cisterns: Normal in configuration. Intracranial vasculature: The visualized intracranial vasculature at the skull base is normal in appearance. Calvarium: Unremarkable. Sinuses and mastoids: The visualized paranasal sinuses are clear. The mastoid air cells are well pneumatized. Orbits: The bony orbits are grossly intact. IMPRESSION: There is no hemorrhage, mass effect, or evidence of acute territorial ischemia by CT criteria. ACT 112: Negative or not required by law. Electronically signed by: Jonathan Cotter M.D. 11/14/2021 7:00 AM Dictated:11/14/21657 Transcribed: 11/14/21657 SINGLE VIEW CHEST CLINICAL HISTORY: Atypical chest pain. FINDINGS: An AP, portable, upright chest radiograph is compared to study dated 05/18/2014. The cardiomediastinal silhouette is top normal for projection. Mild atelectasis is noted at the lung bases. The lungs and pleural spaces are otherwise clear. No pneumothorax is seen. The skeletal structures are osteopenic. The bony thorax is grossly intact. Fusion hardware is noted in the lower cervical spine. IMPRESSION: No active disease in the chest. ACT 112: Negative or not required by law. Electronically signed by: Jonathan Cotter M.D. 11/14/2021 7:43 AM Dictated:11/14/21741 Transcribed: 11/14/21741 Hospital Course (1) Syncope: Present on admission for brief episode of syncope Possible related to vasovagal withsevere abdominal pain, pain meds. CT head showed no hemorrhage, mass effect, or evidence of acute territorial ischemia No focal neuro deficit exam ECHO showed normal LV wall motion. EF 65-70% Cardiology on board Syncope does not appear to be secondary to symptomatic sinus bradycardia as per cardio Clinically stable Diverticulitis CT abd/pelvis on 11/13 showed Mild acute sigmoid diverticulitis. No perforation or abscess. Lipase increased to 300, now trending down Currently on IV Zosyn Diet advanced to Low fiber and tolerated it Will discharge back on Flagyl and Cipro ( Already had them) will continue them for another 6 to 7 days Continue monitor closely Bradycardia Long history of sinus jazmín per past EKG's with HR"s in the 40-60 bpm, without symptoms Cardiology on board syncope does not appear to be secondary to symptomatic sinus bradycardia as per cardiology No indication for pacemaker implantation at this time. Continue monitor SOB Due to IVF hudration CXR showed interval development of mild central pulmonary vascular congestion and trace bilateral pleural effusions. Lasix 40mg given early this morning Will give an additional 20mg IV lasix clinically stable History of hypertension BP stable Continue to hold Lisinopril due to borderline BP History of hyperlipidemia Continue statin. History of diabetes HgbA1c 6.9 (11/14/21) Continue Insulin sliding scale Continue monitor BS Deep venous thrombosis prophylaxis: SCDs On Lovenox subq Code status Full code Total Time Total Time Spent Total Time Spent (In Minutes): 35 minutes Discharge Plan Discharge Items Patient Disposition: Home - Self-Care Reason For Visit: SYNCOPE Discharge Diagnosis: Syncope Diverticulitis Bradycardia Activity: Resume your previous activity Non-emergency contact: Primary Care Provider and Senior Functional Analyst Call non-emergency contact if: you have any medication questions, your symptoms worsen and your temperature is above 101 Follow-up/Referrals: Edel Lisa, DO [Primary Care Provider] - Diet: Low Fiber Addtl Attending Provider Instructions: Follow up with your primary care provider Dr. Lisa within 1 week You will need to follow with gastroenterology to arrange for outpatient colonoscopy Continue antibiotic with Cipro and Flagyl for an additional 6 more days Seek medical attention if your symptoms worsening ( such abdominal pain, nausea, vomiting, ...) Hold lisinopril (medication for your blood pressure) for the next few days since your blood pressure has been well control off lisinopril. Continue monitor your blood pressure and bring your blood pressure log at your next appointment with your provider If blood pressure starts to increase above the 140 (top number). Notify your provider to advise you when to resume the lisinopril for the blood pressure Pending Studies at Discharge: No Stand-Alone Forms: My [facility], Work/School Release, Smoking Cessation Medications and DC Order Prescriptions: Continued lisinopril 5 mg tablet 10 mg PO QAM atorvastatin 40 mg tablet 40 mg PO DAILY levothyroxine 75 mcg Capsule 75 mcg PO QAM ciprofloxacin HCl [Cipro] 500 mg tablet 500 mg PO BID Qty: 20 0RF metronidazole 500 mg tablet 500 mg PO Q8H 10 Days Qty: 30 0RF Discharge Orders: Discharge Order (Routine); Ordered 11/16/21 Ordered By: Maryam Garvey/Other Patient Handouts: Low-Fiber Diet, Diverticulosis and Diverticulitis, Diverticulitis Dc, ED Diverticulitis Admission Data Admit Date/Time: 11/14/21 04:33 Attending Provider: Maryam Olsen Admit Provider: Alejo Wu Primary Care Provider: Edel Lisa Other Providers: Alejo Wu ; Brandon Hopkins Other Interventions: Discharge Summary Assessment (RN) Last Done: 11/16/21 17:42
== END 2021-11-16 17:58 | disposition home or self-care (01) ==
LOC: 2S 23:23 → ED 23:23 → 2S 11-14 05:15

== ENCOUNTER 2024-02-02 09:34 | Observation (INO) ==
--- NOTE | 2024-02-02 09:44 | Emergency Department Note ---
Impression & Plan Low back pain, Ambulatory dysfunction, Blood glucose elevated ED Provider Note NAME: EAGLE HERNANDEZ AGE: 63 SEX: F : 1960 ARRIVES VIA: Ambulance INFORMANT: Patient ED PROVIDER(S): Enrique Prajapati DO CHIEF COMPLAINT: back pain HPI: Patient is a 63-year-old female with a past medical history of hematuria, diverticulitis and chronic back pain who presents to the ER for back pain. She notes yesterday she bent over to slat pickler 2-year-old. When she bent over she felt a pop. Since that she has been having severe pain in her lower back. Radiates down the left anterior leg. She denies any weakness or numbness. She able to urinate move her bowels. She notes she really has not been able to walk since then. No chest pain or shortness of breath. No cough or congestion. ADDITIONAL HISTORY OBTAINED: Per HPI Chronic Medical/Social Conditions Affecting Care: Per HPI PAST MEDICAL HISTORY:See Below PAST SURGICAL HISTORY:See Below FAMILY HISTORY:See Below SOCIAL HISTORY:See Below HOME MEDICATIONS:See Below ALLERGIES:See Below VITALS:See Below PHYSICAL EXAMINATION: GENERAL: Sitting up in bed, alert, well appearing, well nourished, no distress, non-toxic EYE EXAM: normal conjunctiva. PERRL and EOM's grossly intact. OROPHARYNX:mucous membranes are moist LUNGS: Clear to auscultation. Normal chest wall mechanics HEART: no murmurs, S1 normal and S2 normal ABDOMEN: abdomen soft, non-tender, normo-active bowel sounds, no masses, no rebound or guarding. BACK: Back is symmetrical on inspection and there is no deformity, midline tenderness in the lower lumbar region, no CVA tenderness. UPPER EXTREMITIES: upper extremities are grossly normal. LOWER EXTREMITIES: Flexion and extension of the hips, knees, ankles, and EHL 5/5 bilaterally. Gross sensation is intact. DPs are 2/4 bilateral. Patellar and Achilles reflexes are 2/4 bilateral NEURO EXAM: Normal sensorium, cranial nerves II-XII grossly intact, normal speech, no gross weakness of arms, no gross weakness of legs. MEDICAL DECISION MAKING: Patient is a 63-year-old female who presents ER for the above-stated complaint. IV was established medicos obtained. Labs show no significant leukocytosis or anemia. BMP with slightly elevated glucose at 164. T. bili at 1.4. LFTs was unremarkable. X-rays and lumbar spine were unremarkable. Patient was given fluids Toradol and morphine. Updated at bedside. Still unable to move consequently was discussed with the hospitalist for further evaluation management treatment. Discussed with Pt concerning signs and symptoms to watch out for. Pt was instructed to follow up with their PCP and discussed with the patient their option to return to the ED at anytime for persistent or worsening symptoms. The appropriate anticipatory guidance and out-patient management, including indications for return to the emergency department, were explained at length to the patient and understood. Consults/Care Managements Discussions: Per [facility] Triage Nursing notes reviewed. Limited review of prior medical records performed Vital Signs: reviewed and remarkable for HTN Differential diagnosis: Musculoskeletal, disc herniation, fracture, metastatic disease, cord compression, discitis, sciatica, cauda equina, infection, aortic disease, renal colic, gastrointestinal, as well as other pathologies. ER treatment provided: See below Diagnostics interpreted by me include EKG and cardiac monitoring as listed below: -Cardiac Monitoring: An order was placed for continuous cardiac monitoring. The monitor shows a rate of 60 with sinus rhythm. -ECG: none -Laboratory studies:Interpreted by me as stated above in MDM and shown below. Imaging studies: Xrays: As interpreted by me: X-rays of the lumbar spine show no acute fracture CTs show: none Procedures:none Critical Care: None Past Med/Surg History Problem List (Updated 02/02/24 @ 15:17 by Enrique Prajapati DO) Blood glucose elevated (Acute) Ambulatory dysfunction (Acute) Low back pain (Acute) Right knee DJD Right knee pain Hematuria Frequent UTI Urinary symptom or sign History of diverticulitis Encounter for pre-operative examination Medical History Hypertension Sinus bradycardia Diverticulitis Syncope Diverticulosis Hypothyroidism HTN (hypertension) OFF MEDS GERD (gastroesophageal reflux disease) Hypercholesterolemia PT NOT SURE Surgical History History of back surgery Nausea after anesthesia History of colonoscopy S/P laparoscopic procedure r/o ectopic , had early IUP per notes History of back surgery "ant cervical arthroplasty with discectomy C4-C6"/MILD LIMITATION WITH LOOKING UP Family History Mother Family history of diabetes mellitus Sister Family history of diabetes mellitus Sister Family history of diabetes mellitus Sister Family history of diabetes mellitus Denies family history of Ovarian cancer Deep vein thrombosis Clotting disorder Breast cancer Colorectal cancer Uterine cancer Social History Smoking Status: Never smoker Second Hand Exposure: No; Do You Dip or Chew Tobacco: No; Hx Alcohol Use: Yes Alcohol type: wine Hx Substance Use: No Preferred Language: [place] Citizen Communication Ability: Effective House Steward/Stewardess Required: No Beliefs That Will Affect Care: None marital status: Current Living Situation: Spouse and Family current occupational status: employed current occupation: [employer] O[employer] Feels Safe at Home: Yes Assistive Devices: Denture - Upper, Denture - Lower and Glasses Allergies Allergies Allergy/AdvReac Type Severity Reaction Status Date / Time No Known Allergies Allergy Verified 10/06/23 12:00 Home Meds Home Medications Medication Instructions Recorded Confirmed levothyroxine 75 mcg capsule 75 mcg PO QAM 08/20/20 02/02/24 hydroxyzine HCl 25 mg tablet 25 mg PO TID PRN Anxiety 02/02/24 02/02/24 lisinopril 5 mg tablet 5 mg PO QAM 02/02/24 02/02/24 rosuvastatin 10 mg tablet 10 mg PO QAM 02/02/24 02/02/24 semaglutide 0.25 mg or 0.5 mg (2 0.25 mg subcut .WEEKLY 02/02/24 02/02/24 mg/3 mL) subcutaneous pen injector (Ozempic) Results & Data (ED) Vital Signs Vital Signs - 24 hr 02/02/24 09:46 02/02/24 09:46 02/02/24 09:46 Temperature 36.4 C L 36.4 C L Temperature Source Oral Oral Pulse Rate 62 62 Pulse Rate [Right Finger] 62 Pulse Rhythm [Right Finger] Regular Respiratory Rate 18 18 18 Respiratory Effort / Characteristics Non-Labored Spontaneous Non-Labored Spontaneous Respiratory Depth Normal Normal Blood Pressure 153/89 H Blood Pressure [Right Arm] 153/89 H Blood Pressure Mean 110 Blood Pressure Mean [Right Arm] 110 Blood Pressure Position Lying Blood Pressure Position [Right Arm] Lying Pulse Oximetry 100 100 100 Oxygen Delivery Method Room Air Room Air Room Air Sepsis Recent Fever Within 48 Hours No Sepsis New/Unexplained Change in Mental Status N/A Sepsis Action Taken by Nursing No Action Required 02/02/24 11:30 Temperature Temperature Source Pulse Rate Pulse Rate [Right Finger] 58 L Pulse Rhythm [Right Finger] Respiratory Rate 17 Respiratory Effort / Characteristics Non-Labored Spontaneous Respiratory Depth Normal Blood Pressure Blood Pressure [Right Arm] 127/71 Blood Pressure Mean Blood Pressure Mean [Right Arm] 89 Blood Pressure Position Blood Pressure Position [Right Arm] Pulse Oximetry 92 Oxygen Delivery Method Room Air Sepsis Recent Fever Within 48 Hours Sepsis New/Unexplained Change in Mental Status Sepsis Action Taken by Nursing Laboratory Data 02/02/24 10:00 02/02/24 10:00 Lab Results 02/02/24 Range/Units 10:00 WBC 7.02 (4.8-10.8) K/ul RBC 4.80 (4.20-5.40) M/uL Hgb 13.9 (12.0-16.0) g/dl Hct 40.7 (37.0-47.0) % MCV 84.8 (80.0-100.0) fL MCH 29.0 (25.0-34.0) pg MCHC 34.2 (32.0-36.0) g/dL RDW Std Deviation 36.2 L (36.4-46.3) fL RDW Coeff of Kris 11.9 (11.5-14.5) % Plt Count 222 (130-400) K/uL MPV 11.8 (9.4-12.4) fL Immature Gran % (Auto) 0.3 % Neut % (Auto) 53.2 % Lymph % (Auto) 35.6 % Clinch % (Auto) 7.7 % Eos % (Auto) 2.6 % Baso % (Auto) 0.6 % Neut # (Auto) 3.74 (1.40-6.50) K/uL Lymph # (Auto) 2.50 (1.20-3.40) K/uL Clinch # (Auto) 0.54 (0.11-0.59) K/uL Eos # (Auto) 0.18 (0.00-0.50) K/uL Baso # (Auto) 0.04 (0.00-0.20) K/uL Immature Gran # (Auto) 0.02 (0.01-0.20) K/uL Sodium 138 (136-145) mmol/L Potassium 4.0 (3.5-5.1) mmol/L Chloride 106 (98-107) mmol/L Carbon Dioxide 25 (21-32) mmol/L Anion Gap 7 (3-11) BUN 13 (6-23) mg/dl Creatinine 0.83 (0.6-1.2) mg/dl Est Cr Clr Drug Dosing 74.4 ml/min Est GFR ( Amer) 87.6 ml/min Est GFR (Non-Af Amer) 75.6 ml/min BUN/Creatinine Ratio 15.7 (10-20) Glucose 164 H (70-99(Fasting)) mg/dl Calcium 9.3 (8.6-10.3) mg/dl Total Bilirubin 1.4 H (0.2-1.0) mg/dl AST 21 (13-39) U/L ALT 33 (7-52) U/L Alkaline Phosphatase 49 (34-104) U/L Total Protein 6.7 (6.0-8.3) gm/dl Albumin 4.2 (3.4-5.0) gm/dl Globulin 2.5 (2.5-4.0) gm/dl Albumin/Globulin Ratio 1.7 (0.9-2) Administered Medications Discontinued Medications Methylprednisolone (Methylprednisolone 125 Mg/2 Ml Vial) 40 mg IV NOW STA Stop: 02/02/24 11:18 Last Admin: 02/02/24 11:46 Dose: 40 mg Documented By: HELDER Morphine Sulfate (Morphine Sulfate 10 Mg/Ml Carp/Vial) 6 mg IV NOW STA Stop: 02/02/24 09:41 Last Admin: 02/02/24 10:14 Dose: 6 mg Documented By: HELDER Morphine Sulfate (Morphine Sulfate 4 Mg/Ml 1 Ml Carp\\Vial) 4 mg IV NOW STA Stop: 02/02/24 11:18 Last Admin: 02/02/24 13:31 Dose: Not Given Documented By: QUINTON Ondansetron HCl (Ondansetron Inj 2 Mg/Ml 2 Ml Vial) 4 mg IV NOW STA Stop: 02/02/24 09:42 Last Admin: 02/02/24 10:13 Dose: 4 mg Documented By: HELDER Imaging Data Radiologist's Impression: Lumbar Spine X-Ray 02/02/24 09:40 XR lumbar spine 2-3V CLINICAL HISTORY: lower back pain TECHNIQUE: 3 views of the lumbar spine were obtained. Comparison: Comparison is made to lumbar spine radiographs 05/25/2011 FINDINGS: There is no evidence of an acute fracture. Degenerative changes are seen in the lumbar spine with osteophyte formation and disc space narrowing. The alignment is normal. No soft tissue abnormality is seen. IMPRESSION: Degenerative changes as above without acute fracture or subluxation. ACT 112: Negative or not required by law. Electronically signed by: Amadeo Fairchild M.D. 02/02/2024 10:50 AM Discharge Plan Visit Data Chief Complaint: Back Injury/Pain ED Provider: Enrique Prajapati Discharge Problem: Low back pain, Ambulatory dysfunction, Blood glucose elevated Forms Stand Alone Forms: My [facility] [employer] Prescriptions Prescriptions: No Action levothyroxine 75 mcg Capsule 75 mcg PO QAM hydroxyzine HCl 25 mg tablet 25 mg PO TID PRN (Reason: Anxiety) lisinopril 5 mg tablet 5 mg PO QAM rosuvastatin 10 mg tablet 10 mg PO QAM Ozempic 0.25 mg or 0.5 mg (2 mg/3 mL) pen injector 0.25 mg SUBCUT .WEEKLY Referrals Referrals: Edel Lisa DO [Primary Care Provider] - Discharge Problem: Low back pain Qualifiers: Chronicity: acute Back pain laterality: unspecified Sciatica presence: u nspecified whether sciatica present Qualified Code(s): M54.50 - Low back pain, unspecified
[2024-02-02] MEDS: ONDANSETRON INJ 2 MG/ML 2 ML VIAL IV STA ×2 (10:13→15:43)
[2024-02-02] MEDS: MoRPHine SULFATE 10 MG/ML CARP/VIAL IV STA (10:14)
[2024-02-02 10:27] LABS: Basophils # (auto) 0.04 K/uL (0.00-0.20); Basophils % (auto) 0.6 %; Eosinophils # (auto) 0.18 K/uL (0.00-0.50); Eosinophils % (auto) 2.6 %; Hematocrit (blood only) 40.7 % (37.0-47.0); Hemoglobin 13.9 g/dl (12.0-16.0); Immature Granulocytes # (auto) 0.02 K/uL (0.01-0.20); Immature Granulocytes % (auto) 0.3 %; Lymphocytes % (auto) 35.6 %; Mean Corpuscular Hgb Conc 34.2 g/dL (32.0-36.0); Mean Corpuscular Volume 84.8 fL (80.0-100.0); Mean Platelet Volume 11.8 fL (9.4-12.4); Monocytes # (auto) 0.54 K/uL (0.11-0.59); Monocytes % (auto) 7.7 %; Neutrophils # (auto) 3.74 K/uL (1.40-6.50); Neutrophils % (auto) 53.2 %; Platelet Count 222 K/uL (130-400); RDW Coefficient of Variation 11.9 % (11.5-14.5); RDW Standard Deviation 36.2 fL (36.4-46.3); White Blood Count 7.02 K/ul (4.8-10.8)
[2024-02-02 10:42] LABS: Albumin Globulin Ratio 1.7 (0.9-2); Albumin Level 4.2 gm/dl (3.4-5.0); BUN Creatinine Ratio 15.7 (10-20); Bilirubin,Total 1.4 mg/dl (0.2-1.0); Calcium 9.3 mg/dl (8.6-10.3); Creatinine Clr Calc Pharmacy 74.4 ml/min; Est GFR (African American) 87.6 ml/min; Est GFR (Non-African American) 75.6 ml/min; Globulin 2.5 gm/dl (2.5-4.0); Total Protein 6.7 gm/dl (6.0-8.3)
--- NOTE | 2024-02-02 10:52 | XRay Report ---
XR lumbar spine 2-3V CLINICAL HISTORY: lower back pain TECHNIQUE: 3 views of the lumbar spine were obtained. Comparison: Comparison is made to lumbar spine radiographs 05/25/2011 FINDINGS: There is no evidence of an acute fracture. Degenerative changes are seen in the lumbar spine with ost eophyte formation and disc space narrowing. The alignment is normal. No soft tissue abnormality is se en. IMPRESSION: Degenerative changes as above without acute fracture or subluxation. ACT 112: Negative or not required by law. Electronically signed by: Amadeo Fairchild M.D. 02/02/2024 10:50 AM
--- NOTE | 2024-02-02 11:34 | History & Physical Report ---
Date of Service February 02, 2024 Assessment & Plan (1) Low back pain: Plan Angela Fowler is a 63y/o F with PMHx significant for DM type II, acquired hypothyroidism, HTN, HLD, sinus bradycardia, MISSY, GERD and diverticulitis who presented to the ED via EMS for evaluation of low back pain. Low Back Pain: Lab work rather unremarkable. Lumbar spine XR without any acute fractures or subluxation however does note degenerative changes. S/p 10mg IV morphine and 40mg IV Solu-Medrol in the ED. Positive straight leg raise on exam. Pain regimen ordered. Will continue with 40mg IV Solu-Medrol daily. Lidocaine patch, ice application to lower back. Scheduled ibuprofen and Baclofen. MRI lumbar spine pending. PT/OT evals pending. DM Type II: Hold work from home, SSI regimen while inpatient. BSG checks ACHS. Most recent Hgb A1c was 9.9% on 10/10/23. Repeat Hgb A1c with AM labs. MISSY: Patient does not wear a CPAP HS although she has been recommended to do so in the past. Worried she will not hear messages or phone calls throughout the night when she is on-call. Would like referral to [facility]. Other Chronic Medical Conditions: Hypothyroidism, HTN, HLD, anxiety --> Can continue home meds for these specific conditions. DVT Prophylaxis: SCDs/TEDs for now. Code Status: FULL CODE PCP: Edel Lisa DO Disposition: Observation in Med/Surg Patient seen in collaboration with Dr. Petersen. Please see addendum. I spent a total of 55 minutes coordinating, documenting, and providing care for this patient excluding time spent in the performance of separately billed services. This included personally reviewing all current laboratories and imaging studies, medical reconciliation, outpatient chart review and discussion with specialists. This chart was completed in part utilizing Speech Voice Recognition Software. Grammatical errors, random word insertions, pronoun errors, and incomplete sentences are an occasional consequence of this system due to software limitations, ambient noise, and hardware issues. Any formal questions or concerns about the content, text, or information contained within the body of this dictation should be directly addressed to the provider for clarification. History of Present Illness Chief Complaint: Low Back Pain Primary Care Provider: Edle Lisa DO Angela Fowler is a 63y/o F with PMHx significant for DM type II, acquired hypothyroidism, HTN, HLD, sinus bradycardia, MISSY, GERD and diverticulitis who presented to the ED via EMS for evaluation of back pain. History obtained from patient, at bedside and associated chart review. Patient seen at bedside with Dr. Petersen. Patient was trying to pickers material handlers her 2y/o granddaughter yesterday when all of the sudden her lower back "locked up" and she "felt a pop." She was unable to stand up straight at first when this occurred and had to have her assist her. She is continuing to have intractable lower back pain. She tried leftover oxycodone that she had at home without any relief. Also tried Tylenol without any relief. She has been able to urinate, however it is extremely difficult to ambulate without assistance due to her pain and limited mobility. Denies any chest pain or SOB. Has not had a BM since this incidence occurred although she denies any urinary incontinence. 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 No fevers, body aches or chills. No recent sick contacts. No trauma to her lower back region either that she nor her recalls. Allergies Allergy/AdvReac Type Severity Reaction Status Date / Time No Known Allergies Allergy Verified 10/06/23 12:00 Home Medications Medication Instructions Recorded Confirmed Type levothyroxine 75 mcg capsule 75 mcg PO QAM 08/20/20 02/02/24 History hydroxyzine HCl 25 mg tablet 25 mg PO TID PRN Anxiety 02/02/24 02/02/24 History lisinopril 5 mg tablet 5 mg PO QAM 02/02/24 02/02/24 History rosuvastatin 10 mg tablet 10 mg PO QAM 02/02/24 02/02/24 History semaglutide 0.25 mg or 0.5 mg (2 0.25 mg subcut .WEEKLY 02/02/24 02/02/24 History mg/3 mL) subcutaneous pen injector (Ozempic) Past Med/Surg History Problem List (Updated 02/02/24 @ 15:17 by Enrique Prajapati DO) Blood glucose elevated (Acute) Ambulatory dysfunction (Acute) Low back pain (Acute) Right knee DJD Right knee pain Hematuria Frequent UTI Urinary symptom or sign History of diverticulitis Encounter for pre-operative examination Medical History Hypertension Sinus bradycardia Diverticulitis Syncope Diverticulosis Hypothyroidism HTN (hypertension) OFF MEDS GERD (gastroesophageal reflux disease) Hypercholesterolemia PT NOT SURE Surgical History History of back surgery Nausea after anesthesia History of colonoscopy S/P laparoscopic procedure r/o ectopic , had early IUP per notes History of back surgery "ant cervical arthroplasty with discectomy C4-C6"/MILD LIMITATION WITH LOOKING UP Family History Mother Family history of diabetes mellitus Sister Family history of diabetes mellitus Sister Family history of diabetes mellitus Sister Family history of diabetes mellitus Denies family history of Ovarian cancer Deep vein thrombosis Clotting disorder Breast cancer Colorectal cancer Uterine cancer Social History Smoking Status: Never smoker Second Hand Exposure: No; Do You Dip or Chew Tobacco: No; Hx Alcohol Use: Yes Alcohol type: wine Hx Substance Use: No Preferred Language: Lao Communication Ability: Effective French Binder Required: No Beliefs That Will Affect Care: None marital status: Current Living Situation: Spouse and Family current occupational status: employed current occupation: [employer] Feels Safe at Home: Yes Assistive Devices: Denture - Upper, Denture - Lower and Glasses Review of Systems Review of Systems: At least ten systems reviewed and negative, except as noted in the HPI. Physical Exam Physical Exam: Please refer to Dr. Petersen's addendum for physical examination findings. Constitutional: General- adult female seen supine in bed in the ED, Looks uncomfortable Head- atraumatic Eyes- PERRL, EOMI, anicteric ENT- oropharynx clear Neck- supple, no JVD, no adenopathy, no thyromegaly; carotids +2/2, no bruits appreciated Lungs- clear to auscultation and percussion Heart- regular rhythm; no murmur, no gallop, no rub appreciated Abdomen- normal bowel sounds, soft, nontender, no masses or hepatosplenomegaly Extremities- no pretibial edema, no calf tenderness; peripheral pulses intact Neuro- alert, oriented x 3; PERRL, EOMI; no facial palsy; no dysarthria; motor 5/5 bilaterally; MS: + SLR on left at 30 degrees Skin- warm & dry Results & Data Results & Data Vital Signs (Past 12 Hours) Vital Signs Temp Pulse Pulse Resp BP BP Pulse Ox 02/02/24 09:46 62 18 100 02/02/24 09:46 36.4 C L 62 18 153/89 H 100 02/02/24 09:46 36.4 C L 62 18 153/89 H 100 O2 Del Method 02/02/24 09:46 Room Air 02/02/24 09:46 Room Air 02/02/24 09:46 Room Air Laboratory Results Short CBC 02/02/24 Range/Units 10:00 WBC 7.02 (4.8-10.8) K/ul Hgb 13.9 (12.0-16.0) g/dl Hct 40.7 (37.0-47.0) % Plt Count 222 (130-400) K/uL BMP 02/02/24 10:00 Sodium 138 Potassium 4.0 Chloride 106 Carbon Dioxide 25 BUN 13 Creatinine 0.83 Glucose 164 H Calcium 9.3 Liver Function 02/02/24 Range/Units 10:00 Total Bilirubin 1.4 H (0.2-1.0) mg/dl AST 21 (13-39) U/L ALT 33 (7-52) U/L Alkaline Phosphatase 49 (34-104) U/L Albumin 4.2 (3.4-5.0) gm/dl Diagnostic Findings Lumbar Spine X-Ray 02/02/24 09:40 XR lumbar spine 2-3V CLINICAL HISTORY: lower back pain TECHNIQUE: 3 views of the lumbar spine were obtained. Comparison: Comparison is made to lumbar spine radiographs 05/25/2011 FINDINGS: There is no evidence of an acute fracture. Degenerative changes are seen in the lumbar spine with osteophyte formation and disc space narrowing. The alignment is normal. No soft tissue abnormality is seen. IMPRESSION: Degenerative changes as above without acute fracture or subluxation. ACT 112: Negative or not required by law. Electronically signed by: Amadeo Fairchild M.D. 02/02/2024 10:50 AM Medications Administered Discontinued Medications Morphine Sulfate (Morphine Sulfate 10 Mg/Ml Carp/Vial) 6 mg IV NOW STA Stop: 10/01/24 09:41 Last Admin: 02/02/24 10:14 Dose: 6 mg Documented By: HELDER Ondansetron HCl (Ondansetron Inj 2 Mg/Ml 2 Ml Vial) 4 mg IV NOW STA Stop: 02/02/24 09:42 Last Admin: 02/02/24 10:13 Dose: 4 mg Documented By: HELDER Code Status & VTE Plan Code Status FULL CODE Supervising Physician Co-Signing Physician Notes Pt seen and examined in the ED with Angelina Lyn PA-C. Her is present. Pt is having difficulty ambulating and is afraid of a fall. Will admit to Observation. Steroids, NSAIDs, analgesia, muscle relaxants, PT and OT. Check MRI. A total of 20 minutes was spent in care coordination. I agree with the assessment and Plan per the RONA. (1) Low back pain Back pain laterality: unspecified Chronicity: acute Sciatica presence: unspecified whether sciatica present Qualified Code(s): M54.50 - Low back pain, unspecified
[2024-02-02] MEDS: methylPREDNISolone 125 MG/2 ML VIAL IV STA (11:46)
[2024-02-02] MEDS: MoRPHine SULFATE 4 MG/ML 1 ML CARP\\VIAL IV STA (13:31)
[2024-02-02] MEDS ORDERED: ACETAMINOPHEN 325 MG TAB PO PRN (15:46)
[2024-02-02] MEDS ORDERED: CARBOHYDRATES FOR HYPOGLYCEMIA PO PRN (15:46)
[2024-02-02] MEDS ORDERED: GLUCAGON FOR INJ 1 MG VIAL SQ PRN (15:46)
[2024-02-02] MEDS ORDERED: POLYETHYLENE (MIRALAX) 17 GM PACK PO PRN (15:46)
[2024-02-02] MEDS ORDERED: ONDANSETRON INJ 2 MG/ML 2 ML VIAL IV PRN (15:46)
[2024-02-02] MEDS ORDERED: GLUCOSE 10 TAB/TUBE PO PRN (15:46)
[2024-02-02] MEDS ORDERED: GLUCOSE 40% GEL 15 GM TUBE PO PRN (15:46)
[2024-02-02] MEDS ORDERED: hydrOXYzine HCl 25 MG TAB PO PRN (15:46)
[2024-02-02] MEDS ORDERED: DEXTROSE 50% 50 ML SYRINGE IV PRN (15:46)
[2024-02-02] MEDS ORDERED: MoRPHine SULFATE 2 MG/ML CARP IM PRN (15:46)
--- OUTSIDE RECORDS SUMMARY | 2024-02-02 16:08 | External Medical Summary | Summary of Care ---
Author Name Unknown Organization [facility] Address [address] [place] [address] Phone [phone] Care Team Providers Care Real Estate Financial Analyst Name Role Phone Edel Lisa DO Primary Care Provider [phone] Reason for Visit * Reason Onset Date Comments Forms Request 12/23/2023 Encounter Details Date Type Department Care Team (Late st Contact Info) Description 12/23/2023 Telephone Family Practice [facility] [address] [place] [address] Edel Lisa DO [address] [place] [id number] Forms Request Allergies No known active allergiesdocumented as of this encounter (statuses as of 12/28/2023) Medications Medication Sig Dispensed Refills Start Date End Date Status Ondansetron HCl 4 MG Oral TabletIndications:Di verticulitis Take by mouth 1 Tablet every 6 hours as needed for Nausea. 30 Tablet 11/20/2021 Active Meclizine HCl 25 MG Oral Tablet (Antivert)Indication s:Benign paroxysmal positional vertigo of right ear Take 1 Tablet by mouth 3 times a day as needed for Dizziness. 30 Tablet 1 07/30/2022 Active hydrOXYzine HCl 25 MG Oral TabletIndications:Si tuational stress Take 1 Tablet by mouth 3 times a day as needed for Anxiety. 20 Tablet 1 06/02/2023 Active Additional Information Patient not taking.Reported on 09/26/2023 Rosuvastatin Calcium 10 MG Oral Tablet (Crestor) TAKE 1 TABLET BY MOUTH EVERY MORNING 90 Tablet 3 07/23/2023 Active metFORMIN HCl ER 500 MG Oral Tablet Extended Release 24 Hour (Glucophage XR)Indications:Type 2 diabetes mellitus with hemoglobin A1c goal of less than 7.0% (HCC),HTN, goal below 140/90,Hyperlipidemi a, unspecified hyperlipidemia type Take 2 Tablets by mouth in the morning. 180 Tablet 3 11/03/2023 Active Lisinopril 5 MG Oral Tablet (Prinivil)Indication s:HTN, goal below 130/80 Take 1 Tablet by mouth in the morning. In the morning.. 90 Tablet 1 11/21/2023 Active Levothyroxine Sodium 75 MCG Oral Tablet (Levoxyl)Indications :Acquired hypothyroidism (at least 30 min prior to breakfast or other meds)take one tablet by mouth daily at least 30 minutes before breakfast and other medications 90 Tablet 2 11/21/2023 Active Ozempic (0.25 or 0.5 MG/DOSE) 2 MG/3ML Solution Pen-injector (Semaglutide(0.25 or 0.5MG/DOS))Indicatio ns:Type 2 diabetes mellitus with hemoglobin A1c goal of less than 7.0% (HCC),HTN, goal below 140/90,Hyperlipidemi a, unspecified hyperlipidemia type Inject 0.25 mg under the skin once a week. 3 mL 5 11/21/2023 Active documented as of this encounter (statuses as of 12/28/2023) Active Problems Problem Noted Date Diagnosed Date Bite, insect 11/12/2022 Cellulitis of right lower extremity 11/12/2022 Dizziness 05/22/2022 Adjustment disorder with mix ed disturbance of emotions and conduct 05/22/2022 Bradycardia 11/26/2021 Diverticulitis of colon 11/26/2021 Type 2 diabetes mellitus wit h hemoglobin A1c goal of less than 7.0% 09/17/2020 Snoring 04/28/2018 Acquired hypothyroidism 12/26/2014 HTN, goal below 140/90 02/04/2014 Diverticula, colon documented as of this encounter (statuses as of 12/28/2023) Resolved Problems Problem Noted Date Diagnosed Date Resolved Date Hypersomnia, recurrent 04/28/201805/01 Generalized headaches 12/26/20142020 Gastroesophageal reflux dise ase without esophagitis 12/26/2014 06/10/2019 documented as of this encounter (statuses as of 12/28/2023) Immunizations Name Administration Dates Next Due COVID-19 mRNA, LNP-s, No Pre serve, 2-Dose Series (Pfizer) 05/11/2020,04/20/2020 Seasonal Influenza, PF, 6 M & above, IM , (FluLaval or Fluzone) 01/16/2018 Seasonal Influenza, Quadriva lent, No Preserve, IM 02/17/2023,02/01/2021,03/04/2020, 0 19,02/01/2017 Seasonal Influenza, Split, I IV3, With Preserve, Inj 02/08/2016 TDAP (age 10 and older)(Boostrix) 09/19/2014 documented as of this encounter Social History Tobacco Use Types Packs/Day Years Used Date Smoking Tobacco: Never Smokeless Tobacco: Never Alcohol Use Standard Drinks/Week Comments Yes 0 (1 standard drink = 0.6 oz pur e alcohol) occasional PHQ-2 Answer Date Recorded PHQ Adult Total Score 0 09/17/2020 Hunger Vital Sign Answer Date Recorded Worried About Running Out of Food in the Last Ye ar Never true 10/31/2019 Ran Out of Food in the Last Year Never true 10/31/2019 Utilities Answer Date Recorded Do you have trouble paying y our heating, water, or electric bill? (Adult - for ages 18 years and over) Not on file 10/20/2023 Is your family able to pay t he heat, water, or electric bill? (Household - for ages 0-17 years) Not on file 10/20/2023 Does your family have access to good internet? (Household - for ages 0-17 years) Not on file 10/20/2023 Social Connections Answer Date Recorded How often do you feel lonely or isolated from those around you? (Adult - for ages 18 years and over) Not on file 10/20/2023 Sex and Gender Information Value Date Recorded Sex Assigned at Female 06/10/2019 12:58 PM EST Gender Identity Female 06/10/2019 12:58 PM EST Sexual Orientation Straight 06/10/2019 12 :58 PM EST Job Start Date Occupation Industry Not on file Not on file Not on file documented as of this encounter Miscellaneous Notes * Telephone Encounter - Edel Lisa DO - 12/28/2023 10:28 AM EDT These are recent enough Form is on the right side of my desk, I signed, only needs data entered I can also complete and fax tomorrow * Telephone Encounter - Opal Mcnally OSA - 12/26/2023 10:33 AM EDT Patient calling in to check on the status of previous message. Fax is across bottom fax page. Patient Called within 48 hour timeframe. Reminded patient of 48 hour turn-around time. * Telephone Encounter - Omayra Fitzgerald MED ASSIST - 12/24/2023 8:45 AM EDT Lipid panel done 06/27/23, A1C done 10/10/23. See scanned results. Are these recent enough for form completion? * Telephone Encounter - Edel Lisa DO - 12/23/2023 6:25 PM EDT I have form on my desk, completed but pending labs, did she have these done? * Telephone Encounter - Catalina Bacon OSA - 12/23/2023 4:22 PM EDT I dont believe they dropped it off with me at least * Telephone Encounter - Trista Gillette RN - 12/23/2023 3:54 PM EDT I do not see this form. Dr Lisa, have you seen this form? Does any PAR staff remember taking this form? * Telephone Encounter - Kaycee Hernandez OSA - 12/23/2023 2:51 PM EDT Pt called stating she had dropped some Health and Wellness forms off at the office last week - theyneeded completed and faxed back - not seeing anything in TE - was the form received and faxed back?Please advise [phone] documented in this encounter Plan of Treatment Upcoming Encounters Date Type Department Care Team (Late st Contact Info) Description 12/31/2023 2:30 PM EDT Office Visit Sleep Disorders Ctr [facility] [address] [place] [phone] Rachael Santos CRNP [address] [place] [phone] 05/10/2024 4:40 PM EST Office Visit Family Practice [facility] [address] [place] [address] Edel Lisa DO [address] [place] [address] Health Maintenance Due Date Last Done Comments Pneumococcal Vaccine: Pediatrics (0 to 5 Years) and At-Risk Patients (6 to 64 Years) (1 of 2 - PCV) 1967 HIV Screening 1976 Diabetic Eye Exam 1979 HPV/Co-Test 1991 Cologuard 2006 Fecal Occult Blood Test 2006 Sigmoidoscopy 2006 Zoster Vaccines (1 of 2) 2011 Depression Screening 09/17/2021 09/17/2020 Cervical Cancer Screening 09/20/2021 Pap Smear 09/20/2021 09/20/2018, 07/2014, 07/04/2014 (Done elsewhere) Diabetic Foot Exam 11/20/2022 11/20/2021 COVID-19 Vaccine (3 season) 2023 05/11/2020, 04/20/2020 Influenza Vaccine (FLU shot) (#1) 2024 02/17/2023, 02/01/2021, 03/04/2020, Additional history exists HbA1c 04/10/2024 10/10/2023, 06/05, 11/15/2022, Additional history exists Albumin/Creatinine Ratio 06/27/2024 024, 05/17/2022, 03/18/2014 GFR 06/27/2024 06/27/2023, 11/01, 05/22/2022, Additional history exists TSH 06/27/2024 06/27/2023, 05/04, 02/26/2021, Additional history exists DTaP,Tdap,and Td Vaccines (2 - Td or Tdap) 09/19/2024 09/19/2014 Mammogram 09/30/2024 10/01/2023, 05/0 01/2023, 09/06/2021, Additional history exists Lipid Panel 06/27/2028 06/27/2023, 11/01, 05/17/2022, Additional history exists Colonoscopy 01/15/2032 01/14/2022, 03/0 01/2017, 12/21/2013 Colorectal Cancer Screening 01/15/2032 HPV (Gardasil) Vaccine Aged Out No lo nger eligible based on patient's age to complete this topic Hepatitis B Vaccine Aged Out No longe r eligible based on patient's age to complete this topic MENINGOCOCCAL (MENACTRA/MENVEO) Aged Out No longer eligible based on patient's age to complete this topic documented as of this encounter Medical Devices Not on filedocumented as of this encounter Care Teams Real Estate Financial Analyst Relationship Specialty Start Date End Date Edel Lsia DO [address] [place] [id number] PCP - General Family Medicine 02/23/21 documented as of this encounter
--- OUTSIDE RECORDS SUMMARY | 2024-02-02 16:08 | External Medical Summary | Summary of Care ---
Author Name Unknown Organization [facility] Address [address] [place] [address] Phone [phone] Care Team Providers Care Composition Worker Name Role Phone Edel Lisa DO Primary Care Provider [phone] Reason for Visit * Reason Onset Date Comments Forms Request 12/23/2023 Encounter Details Date Type Department Care Team (Late st Contact Info) Description 12/23/2023 Telephone Family Practice [facility] [address] [place] [address] Edel Lisa DO [address] [place] [address] Forms Request Allergies No known active allergiesdocumented [...] encounter Miscellaneous Notes * Telephone Encounter - Opal Mcnally, MISSY - 12/26/2023 10:33 AM EDT Patient calling [...] the form received and faxed back?Please advise [phone] documented in this encounter Plan of Treatment Upcoming Encounters Date Type Department Care Team (Late st Contact Info) Description 12/31/2023 2:30 PM EDT Office Visit Sleep Disorders Ctr [facility] [address] [place] [phone] Rachael Santos CRNP [address] [place] [address] 05/10/2024 4:40 PM EST Office Visit Family Practice [facility] [address] [place] [address] Edel Lisa DO [address] [place] [phone] Health Maintenance Due Date Last Done Comments Pneumococcal Vaccine: Pediatrics (0 to 5 Years) and At-Risk Patients (6 to 64 Years) (1 of 2 - PCV) 1967 HIV Screening 1976 Diabetic Eye Exam 1979 HPV/Co-Test 1991 Cologuard 2006 Fecal Occult Blood Test 2006 Sigmoidoscopy 2006 Zoster Vaccines (1 of 2) 2011 Depression Screening 09/17/2021 09/17/2020 Cervical Cancer Screening 09/20/2021 Pap Smear 09/20/2021 09/20/2018, 03/0 07/2014, 07/04/2014 (Done elsewhere) Diabetic Foot Exam 11/20/2022 11/20/2021 COVID-19 Vaccine ( season) 2023 05/11/2020, 04/20/2020 Influenza Vaccine (FLU shot) (#1) 2024 02/17/2023, 02/01/2021, 03/04/2020, Additional history exists HbA1c 04/10/2024 10/10/2023, 06/05, 11/15/2022, Additional history exists Albumin/Creatinine Ratio 06/27/2024 024, 05/17/2022, 03/18/2014 GFR 06/27/2024 06/27/2023, 11/01, 05/22/2022, Additional history exists TSH 06/27/2024 06/27/2023, 05/04, 02/26/2021, Additional history exists DTaP,Tdap,and Td Vaccines (2 - Td or Tdap) 09/19/2024 09/19/2014 Mammogram 09/30/2024 10/01/2023, 01/2023, 09/06/2021, Additional history exists Lipid Panel 06/27/2028 06/27/2023, 11/01, 05/17/2022, Additional history exists Colonoscopy 01/15/2032 01/14/2022, 030 01/2017, 12/21/2013 Colorectal Cancer Screening 01/15/2032 HPV [...] filedocumented as of this encounter Care Teams Composition Worker Relationship Specialty Start Date End Date Edel Lisa DO [facility] [address] [place] [phone] PCP - General Family Medicine 02/23/21 documented as of this encounter
--- OUTSIDE RECORDS SUMMARY | 2024-02-02 16:08 | External Medical Summary | Summary of Care ---
Author Name Unknown Organization [facility] Address [address] [place] [place] [address] Phone [phone] Care Team Providers Care Recreation Therapy Director Name Role Phone Edel Lisa DO Primary Care Provider [phone] Reason for Visit * Reason Onset Date Comments Forms Request 12/23/2023 Encounter Details Date Type Department Care Team (Late st Contact Info) Description 12/23/2023 Telephone Family Practice [facility] [address] [place] [address] Edel Lisa DO [address] [place] [phone] Forms Request Allergies No known active allergiesdocumented as of this encounter (statuses as of 12/26/2023) Medications Medication Sig Dispensed Refills Start Date [...] as of this encounter (statuses as of 12/26/2023) Active Problems Problem Noted Date Diagnosed Date [...] as of this encounter (statuses as of 12/26/2023) Resolved Problems Problem Noted Date Diagnosed Date Resolved Date Hypersomnia, recurrent 04/28/201805/01 Generalized headaches 12/26/20142020 Gastroesophageal reflux dise ase without esophagitis 12/26/2014 06/10/2019 documented as of this encounter (statuses as of 12/26/2023) Immunizations Name Administration Dates Next Due COVID-19 [...] Miscellaneous Notes * Telephone Encounter - Opal Mcnally OSA - 12/26/2023 10:33 AM EDT Patient calling in to check on the status of previous message. Fax is across bottom fax page. Patient Called within 48 hour timeframe. Reminded patient of 48 hour turn-around time. * Telephone Encounter - mOayra Fitzgerald MED ASSIST - 12/24/2023 8:45 AM [...] the form received and faxed back?Please advise [phone] documented in this encounter Plan of Treatment Upcoming Encounters Date Type Department Care Team (Late st Contact Info) Description 12/31/2023 2:30 PM EDT Office Visit Sleep Disorders Ctr [facility] [address] [place] [phone] Rachael Santos CRNP [address] [place] [address] 05/10/2024 4:40 PM EST Office Visit Family Practice [facility] [address] [place] [address] Edel Lisa DO [address] [place] [address] Health Maintenance Due Date Last Done Comments [...] filedocumented as of this encounter Care Teams Recreation Therapy Director Relationship Specialty Start Date End Date Edel Lisa DO [facility] [address] [place] [address] PCP - General Family Medicine 02/23/21 documented as of this encounter
--- OUTSIDE RECORDS SUMMARY | 2024-02-02 16:08 | External Medical Summary | Summary of Care ---
Author Name Unknown Organization [facility] Address [address] [place] [place] [address] Phone [phone] Care Team Providers Care Game Moderator Name Role Phone Edel Lisa DO Primary Care Provider [phone] Reason for Visit * Reason Onset Date Comments Forms Request 12/23/2023 Encounter Details Date Type Department Care Team (Late st Contact Info) Description 12/23/2023 Telephone Family Practice [facility] [address] [place] [address] Edel Lisa DO [address] [place] [address] Forms Request Allergies No known active allergiesdocumented [...] the form received and faxed back?Please advise [phone] documented in this encounter Plan of Treatment Upcoming Encounters Date Type Department Care Team (Late st Contact Info) Description 12/31/2023 2:30 PM EDT Office Visit Sleep Disorders Ctr [facility] [address] [place] [phone] Rachael Santos CRNP [address] [place] [address] 05/10/2024 4:40 PM EST Office Visit Family Practice [facility] [address] [place] [address] Edel Lisa DO [address] [place] [address] Health Maintenance Due Date Last Done Comments [...] filedocumented as of this encounter Care Teams Game Moderator Relationship Specialty Start Date End Date Edel Lisa DO [facility] [address] [place] [address] PCP - General Family Medicine 02/23/21 documented as of this encounter
--- OUTSIDE RECORDS SUMMARY | 2024-02-02 16:08 | External Medical Summary | Summary of Care ---
Author Name Unknown Organization [facility] Address [address] [place] [place] [address] Phone [phone] Care Team Providers Care Talent Management Manager Name Role Phone Edel Lisa DO Primary Care Provider [phone] Reason for Visit * Reason Onset Date Comments Forms Request 12/23/2023 Encounter Details Date Type Department Care Team (Late st Contact Info) Description 12/23/2023 Telephone Family Practice [facility] [address] [place] [address] Edel Lisa DO [address] [place] [address] Forms Request Allergies No known active allergiesdocumented as of this encounter (statuses as of 12/29/2023) Medications Medication Sig Dispensed Refills Start Date [...] as of this encounter (statuses as of 12/29/2023) Active Problems Problem Noted Date Diagnosed Date [...] as of this encounter (statuses as of 12/29/2023) Resolved Problems Problem Noted Date Diagnosed Date Resolved Date Hypersomnia, recurrent 04/28/201805/01 Generalized headaches 12/26/20142020 Gastroesophageal reflux dise ase without esophagitis 12/26/2014 06/10/2019 documented as of this encounter (statuses as of 12/29/2023) Immunizations Name Administration Dates Next Due COVID-19 [...] encounter Miscellaneous Notes * Telephone Encounter - Gardenia Spain OSA - 12/29/2023 12:47 PM EDT Patient has been notified of the message. Patient has no further questions. * Telephone Encounter - Trista Gillette RN - 12/29/2023 10:42 AM EDT Form faxed Copy sent to scan. Original sent to pt. Called cell and left message to notify. * Telephone Encounter - Edel Lisa DO [...] the form received and faxed back?Please advise [phone] documented in this encounter Plan of Treatment Upcoming Encounters Date Type Department Care Team (Late st Contact Info) Description 05/10/2024 4:40 PM EST Office Visit Family Practice [facility] [address] [address] Edel Lisa DO [address] [place] [address] Health Maintenance Due Date Last Done Comments Pneumococcal Vaccine: Pediatrics (0 to 5 Years) and At-Risk Patients (6 to 64 Years) (1 of 2 - PCV) 1967 HIV Screening 1976 Diabetic Eye Exam 1979 HPV/Co-Test 1991 Cologuard 2006 Fecal Occult Blood Test 2006 Sigmoidoscopy 2006 Zoster Vaccines (1 of 2) 2011 Depression Screening 09/17/2021 09/17/2020 Cervical Cancer Screening 09/20/2021 Pap Smear 09/20/2021 09/20/2018, 0307/2014, 07/04/2014 (Done elsewhere) Diabetic Foot Exam 11/20/2022 11/20/2021 COVID-19 Vaccine ( season) 2023 05/11/2020, 04/20/2020 Influenza Vaccine (FLU shot) (#1) 2024 02/17/2023, 02/01/2021, 03/04/2020, Additional history exists HbA1c 04/10/2024 10/10/2023, 06/05, 11/15/2022, Additional history exists Albumin/Creatinine Ratio 06/27/2024 024, 05/17/2022, 03/18/2014 GFR 06/27/2024 06/27/2023, 11/01, 05/22/2022, Additional history exists TSH 06/27/2024 06/27/2023, 05/04, 02/26/2021, Additional history exists DTap/Tdap Vaccines (2 - Td or Tdap) 09/19/2024 09/19/2014 Mammogram 09/30/2024 10/01/2023, 050 01/2023, 09/06/2021, Additional history exists Lipid Panel [...] filedocumented as of this encounter Care Teams Talent Management Manager Relationship Specialty Start Date End Date Edel Lisa DO [address] [place] [address] PCP - General Family Medicine 02/23/21 documented as of this encounter
--- OUTSIDE RECORDS SUMMARY | 2024-02-02 16:08 | External Medical Summary | Summary of Care ---
Author Name Unknown Organization [facility] Address [address] [place] [place] [address] Phone [phone] Care Team Providers Care Stencil Cutter Name Role Phone Edel Lisa DO Primary Care Provider [phone] Reason for Visit * Reason Onset Date Comments Forms Request 12/23/2023 Encounter Details Date Type Department Care Team (Late st Contact Info) Description 12/23/2023 Telephone Family Practice [facility] [address] [place] [address] Edel Lisa DO [address] [place] [address] Forms Request Allergies No known active allergiesdocumented [...] the form received and faxed back?Please advise [phone] documented in this encounter Plan of Treatment Upcoming Encounters Date Type Department Care Team (Late st Contact Info) Description 12/31/2023 2:30 PM EDT Office Visit Sleep Disorders Ctr [facility] [address] [place] [phone] Rachael Santos CRNP [address] [place] [address] 05/10/2024 4:40 PM EST Office Visit Family Practice [facility] [address] [place] [address] Edel Lisa DO [address] [place] [address] Health Maintenance Due Date Last Done Comments [...] filedocumented as of this encounter Care Teams Stencil Cutter Relationship Specialty Start Date End Date Edel Lisa DO [facility] [place] [address] PCP - General Family Medicine 02/23/21 documented as of this encounter
--- OUTSIDE RECORDS SUMMARY | 2024-02-02 16:08 | External Medical Summary | Summary of Care ---
Author Name Unknown Organization [facility] Address [address] [place] [place] [address] Phone [phone] Care Team Providers Care Auto Machinist Name Role Phone Edel Lisa DO Primary Care Provider [phone] Reason for Visit * Reason Onset Date Comments Forms Request 12/23/2023 Encounter Details Date Type Department Care Team (Late st Contact Info) Description 12/23/2023 Telephone Family Practice [facility] [address] [place] [address] Edel Lisa DO [address] [place] [address] Forms Request Allergies No known active allergiesdocumented [...] encounter Miscellaneous Notes * Telephone Encounter - Trista Gillette, RN - 12/29/2023 10:42 AM EDT Form [...] this form? * Telephone Encounter - Kaycee Hernadnez OSA - 12/23/2023 2:51 PM EDT Pt called stating she had dropped some Health and Wellness forms off at the office last week - theyneeded completed and faxed back - not seeing anything in TE - was the form received and faxed back?Please advise [phone] documented in this encounter Plan of Treatment Upcoming Encounters Date Type Department Care Team (Late st Contact Info) Description 12/31/2023 2:30 PM EDT Office Visit Sleep Disorders Ctr [facility] [address] [place] [phone] Rachael Santos CRNP [address] [place] [address] 05/10/2024 4:40 PM EST Office Visit Family Practice [facility] [address] [place] [address] Edel Lisa DO [address] [place] [address] Health Maintenance Due Date Last Done Comments [...] filedocumented as of this encounter Care Teams Auto Machinist Relationship Specialty Start Date End Date Edel Lisa DO [address] [address] PCP - General Family Medicine 02/23/21 documented as of this encounter
--- OUTSIDE RECORDS SUMMARY | 2024-02-02 16:08 | External Medical Summary | Summary of Care ---
Author Name Unknown Organization [facility] Address [address] [place] [place] [address] Phone [phone] Care Team Providers Care Validation Architect Name Role Phone Edel Lisa DO Primary Care Provider [phone] Reason for Visit * Reason Onset Date Comments Health Maintenance 12/22/2023 Encounter Details Date Type Department Care Team (Late st Contact Info) Description 12/22/2023 Telephone Family Practice [facility] [address] [place] [address] Edel Lisa DO [address] [place] [address] Health Maintenance Allergies No known active allergiesdocumented as of [...] encounter Miscellaneous Notes * Telephone Encounter - Akua Braxton LPN - 12/22/2023 11:43 AM EDT Care Gaps Comprehensive Care Outreach Last Office/Telemedicine Visit: 10/15/2023 (in office), Visit date not found (telemedicine) Next Office Visit: 05/10/2024 Hemoglobin AIC Results: Lab Results Component Value Date/Time HEMOGLOBIN A1C - [facility] 7.2 (H) 05/22/2022 03:25 PM BP Readings from Last 1 Encounters: 10/15/23 118/68 Reviewed Health Maintenance below: Health Maintenance Topic Date Due Pneumococcal Vaccine: Pediatrics (0 to 5 Years) and At-Risk Patients (6 to 64 Years) (1 of 2 - PCV)Never done HIV Screening Never done Diabetic Eye Exam Never done Zoster Vaccines (1 of 2) Never done Depression Screening 09/17/2021 Cervical Cancer Screening 09/20/2021 Diabetic Foot Exam 11/20/2022 COVID-19 Vaccine ( season) 2023 Influenza Vaccine (FLU shot) (1) 01/03/2024 HbA1c 04/10/2024 Eye Pap [facility] already ordered Care Gap Outreach Action Taken: Unable to reach and [employer] message sent documented in this encounter Plan of Treatment Upcoming Encounters Date Type Department Care Team (Late st Contact Info) Description 05/10/2024 4:40 PM EST Office Visit Family Practice [facility] [address] [place] [address] Edel Lisa DO [address] [place] [address] Health Maintenance Due Date Last Done Comments Pneumococcal Vaccine: Pediatrics (0 to 5 Years) and At-Risk Patients (6 to 64 Years) (1 of 2 - PCV) 1967 HIV Screening 1976 Diabetic Eye Exam 1979 HPV/Co-Test 1991 Cologuard 2006 Fecal Occult Blood Test 2006 Sigmoidoscopy 2006 Zoster Vaccines (1 of 2) 2011 Depression Screening 09/17/2021 09/17/2020 Cervical Cancer Screening 09/20/2021 Pap Smear 09/20/2021 09/20/2018, 030 07/2014, 07/04/2014 (Done elsewhere) Diabetic Foot Exam [...] filedocumented as of this encounter Care Teams Validation Architect Relationship Specialty Start Date End Date Edel Lisa DO [address] [id number] PCP - General Family Medicine 02/23/21 documented as of this encounter
--- OUTSIDE RECORDS SUMMARY | 2024-02-02 16:09 | External Medical Summary | Summary of Care ---
Author Name Unknown Organization [facility] Address [address] [place] [place] [address] Phone [phone] Care Team Providers Care Boxing Trainer Name Role Phone Edel Lisa DO Primary Care Provider [phone] Encounter Details Date Type Department Care Team (Late st Contact Info) Description 10/15/2023 Telephone Family Practice [facility] [address] [place] [address] Edel Lisa DO [address] [place] [address] Allergies No known active allergiesdocumented as of this encounter (statuses as of 10/20/2023) Medications Medication Sig Dispensed Refills Start Date [...] for Dizziness. 30 Tablet 1 07/30/2022 Active Lisinopril 5 MG Oral Tablet (Prinivil)Indication s:HTN, goal below 130/80 TAKE ONE TABLET BY MOUTH IN THE MORNING 90 Tablet 3 03/06/2023 Active hydrOXYzine HCl 25 MG Oral TabletIndications:Si tuational stress Take 1 Tablet by mouth 3 times a day as needed for Anxiety. 20 Tablet 1 06/02/2023 Active Additional Information Patient not taking.Reported on 09/26/2023 Rosuvastatin Calcium 10 MG Oral Tablet (Crestor) TAKE 1 TABLET BY MOUTH EVERY MORNING 90 Tablet 3 07/23/2023 Active Levothyroxine Sodium 75 MCG Oral Tablet (Levoxyl)Indications :Acquired hypothyroidism take one tablet by mouth daily at least 30 minutes before breakfast and other medications 90 Tablet 3 09/01/2023 Active metFORMIN HCl ER 500 MG Oral Tablet Extended Release 24 Hour (Glucophage XR)Indications:Type 2 diabetes mellitus with hemoglobin A1c goal of less than 7.0% (HCC) Take 2 Tablets by mouth in the morning and 2 Tablets before bedtime. 360 Tablet 3 10/15/2023 Active Ozempic (0.25 or 0.5 MG/DOSE) 2 MG/3ML Solution Pen-injector (Semaglutide(0.25 or 0.5MG/DOS))Indicatio ns:Type 2 diabetes mellitus with hemoglobin A1c goal of less than 7.0% (HCC) Inject 0.25 mg under the skin once a week. 3 mL 5 10/15/2023 Active documented as of this encounter (statuses as of 10/20/2023) Active Problems Problem Noted Date Diagnosed Date [...] as of this encounter (statuses as of 10/20/2023) Resolved Problems Problem Noted Date Diagnosed Date Resolved Date Hypersomnia, recurrent 04/28/201805/01 Generalized headaches 12/26/20142020 Gastroesophageal reflux dise ase without esophagitis 12/26/2014 06/10/2019 documented as of this encounter (statuses as of 10/20/2023) Immunizations Name Administration Dates Next Due COVID-19 mRNA, LNP-s, No Pre serve, 2-Dose Series ([employer]) 05/11/2020,04/20/2020 Seasonal Influenza, PF, 6 M & [...] Telephone Encounter - Edel Lisa DO - 10/20/2023 12:49 PM EDT Form signed, on my desk Please scan copy * Telephone Encounter - Mirian Morales LPN - 10/15/2023 3:33 PM EDT Pt dropped off FMLA (renewal) Paperwork. Needs reviewed, signed, faxed, and a copy sent to her homeaddress when completed. Placed form in PCP mailbox. documented in this encounter Plan of Treatment Upcoming Encounters Date Type Department Care Team (Late st Contact Info) Description 12/31/2023 2:30 PM EDT Office Visit Sleep Disorders Ctr [facility] [address] [place] [phone] Rachael Santos CRNP [address] [place] [address] 05/10/2024 4:40 PM EST Office Visit Family Practice [facility] [address] [place] [address] Edel Lisa DO [address] [place] [address] Health Maintenance Due Date Last Done Comments [...] COVID-19 Vaccine ( season) 2023 05/11/2020, 04/20/2020 HbA1c 04/10/2024 10/10/2023, 06/05, 11/15/2022, Additional history exists Albumin/Creatinine Ratio 06/27/2024 024, 05/17/2022, 03/18/2014 GFR 06/27/2024 06/27/2023, 11/01, 05/22/2022, Additional history exists TSH 06/27/2024 06/27/2023, 05/04, 02/26/2021, Additional history exists DTaP,Tdap,and Td Vaccines (2 - Td or Tdap) 09/19/2024 09/19/2014 Mammogram 09/30/2024 10/01/2023, 01/2023, 09/06/2021, Additional history exists Lipid Panel 06/27/2028 06/27/2023, 11/01, 05/17/2022, Additional history exists Colonoscopy 01/15/2032 01/14/2022, 01/2017, 12/21/2013 Colorectal Cancer Screening 01/15/2032 Influenza Vaccine (FLU shot) Completed , 02/01/2021, 03/04/2020, Additional history exists GARDASIL-HPV IMMUNIZATION SERIES Aged Out No longer eligible based on patient's age to complete this topic Hepatitis B Aged Out No longer eligi ble based on patient's age to complete this topic MENINGOCOCCAL (MENACTRA/MENVEO) Aged Out No longer eligible based on patient's age to complete this topic documented as of this encounter Medical Devices Not on filedocumented as of this encounter Care Teams Boxing Trainer Relationship Specialty Start Date End Date Edel Lisa DO [address] [place] [address] PCP - General Family Medicine 02/23/21 documented as of this encounter
--- OUTSIDE RECORDS SUMMARY | 2024-02-02 16:09 | External Medical Summary | Summary of Care ---
Author Name Unknown Organization [facility] Address [address] [place] [place] [address] Phone [phone] Care Team Providers Care Forest Economics Professor Name Role Phone Edel Lisa DO Primary Care Provider [phone] Reason for Visit * Reason Onset Date Comments Forms Request 12/23/2023 Encounter Details Date Type Department Care Team (Late st Contact Info) Description 12/23/2023 Telephone Family Practice [facility] [address] [place] [address] Edel Lisa DO [address] [place] [address] Forms Request Allergies No known active allergiesdocumented as of this encounter (statuses as of 12/23/2023) Medications Medication Sig Dispensed Refills Start Date [...] as of this encounter (statuses as of 12/23/2023) Active Problems Problem Noted Date Diagnosed Date [...] as of this encounter (statuses as of 12/23/2023) Resolved Problems Problem Noted Date Diagnosed Date Resolved Date Hypersomnia, recurrent 04/28/201805/01 Generalized headaches 12/26/20142020 Gastroesophageal reflux dise ase without esophagitis 12/26/2014 06/10/2019 documented as of this encounter (statuses as of 12/23/2023) Immunizations Name Administration Dates Next Due COVID-19 [...] encounter Miscellaneous Notes * Telephone Encounter - Catalina Bacon OSA [...] the form received and faxed back?Please advise [phone] documented in this encounter Plan of Treatment Upcoming Encounters Date Type Department Care Team (Late st Contact Info) Description 12/31/2023 2:30 PM EDT Office Visit Sleep Disorders Ctr [facility] [address] [phone] Rachael Santos CRNP [address] [place] [address] 05/10/2024 4:40 PM EST Office Visit Family Practice [facility] [address] [address] Edel Lisa DO [address] [place] [address] Health Maintenance Due Date Last Done Comments [...] filedocumented as of this encounter Care Teams Forest Economics Professor Relationship Specialty Start Date End Date Edel Lisa DO [address] [place] [address] PCP - General Family Medicine 02/23/21 documented as of this encounter
--- OUTSIDE RECORDS SUMMARY | 2024-02-02 16:09 | External Medical Summary | Summary of Care ---
Author Name Unknown Organization [facility] Address [address] [place] [address] Phone [phone] Care Team Providers Care Career Services Director Name Role Phone Edel Lisa DO Primary Care Provider [phone] Encounter Details Date Type Department Care Team (Late st Contact Info) Description 10/20/2023 Telephone Family Practice [facility] [address] [place] [address] Izabela Bridges CRNP [address] [facility] [place] [address] Allergies No known active allergiesdocumented as of [...] mRNA, LNP-s, No Pre serve, 2-Dose Series ([employer]) 05/11/2020,04/20/2020 Seasonal Influenza, PF, 6 M & [...] in the Last Year Never true 10/31/2019 Sex and Gender Information Value Date Recorded Sex Assigned at Female 06/10/2019 12:58 PM EST Gender Identity Female 06/10/2019 12:58 PM EST Sexual Orientation Straight 06/10/2019 12 :58 PM EST Job Start Date Occupation Industry Not on file Not on file Not on file documented as of this encounter Miscellaneous Notes * Telephone Encounter - Mirian Morales LPN - 10/20/2023 7:22 AM EDT PA request on pts ozempic 0.25 mg BIN- [id number] [facility] HFU ID- [id number] PA started on CMM ([employer]ai: [id number]) Awaiting response documented in this encounter Plan of Treatment Upcoming Encounters Date Type Department Care Team (Late st Contact Info) Description 12/31/2023 2:30 PM EDT Office Visit [facility] [address] [facility] [place] [phone] Rachael Santos CRNP [address] [place] [phone] 05/10/2024 4:40 PM EST Office Visit Family Practice [facility] [address] [place] [address] Edel Lisa DO [address] [place] [address] Health Maintenance Due Date Last Done Comments [...] 03/0 01/2017, 12/21/2013 Colorectal Cancer Screening 01/15/2032 Influenza [...] filedocumented as of this encounter Care Teams Career Services Director Relationship Specialty Start Date End Date Edel Lisa DO [address] [place] [address] PCP - General Family Medicine 02/23/21 documented as of this encounter
--- OUTSIDE RECORDS SUMMARY | 2024-02-02 16:09 | External Medical Summary | Summary of Care ---
Author Name Unknown Organization [facility] Address [address] [address] Phone [phone] Care Team Providers Care Medical Referral Coordinator Name Role Phone Connie Cherry DO Primary Care Provider [phone] Reason for Referral * Medication Prior Authorization - Closed Specialty Diagnoses / Procedures Referred By Contac t Referred To Contact Diagnoses Type 2 diabetes mellitus with hemoglobin A1c goal of less than 7.0% (HCC) HTN, goal below 140/90 Hyperlipidemia, unspecified hyperlipidemia type Myranda Tristan, [facility] [address] [place] [address] Referral ID Status Reason Start Date Expiration Date Visits Re quested Visits Authorized [id number] Closed 999 520 Reason for Visit * Reason Onset Date Comments Medication Refill 11/21/2023 Encounter Details Date Type Department Care Team (Late st Contact Info) Description 11/21/2023 Refill Family Practice [facility] [address] [place] [address] Connie Cherry DO [address] [place] [address] HTN, goal below 130/80; Acquired hypothyroidism; Type 2 diabetes mellitus with hemoglobin A1c goal of less than 7.0% (HCC); HTN, goal below 140/90; Hyperlipidemia, unspecified hyperlipidemia type Allergies No known active allergiesdocumented as of this encounter (statuses as of 11/21/2023) Medications Medication Sig Dispensed Refills Start Date End Date Status Ondansetron HCl 4 MG Oral TabletIndications:D iverticulitis Take by mouth 1 Tablet every 6 hours as needed for Nausea. 30 Tablet 11/20/2021 Active Meclizine HCl 25 MG Oral Tablet (Antivert)Indicatio ns:Benign paroxysmal positional vertigo of right ear Take 1 Tablet by mouth 3 times a day as needed for Dizziness. 30 Tablet 1 07/30/2022 Active hydrOXYzine HCl 25 MG Oral TabletIndications:S ituational stress Take 1 Tablet by mouth 3 [...] of less than 7.0% (HCC),HTN, goal below 140/90,Hyperlipidem ia, unspecified hyperlipidemia type Take 2 Tablets by mouth in the morning. 180 Tablet 3 11/03/2023 Active Lisinopril 5 MG Oral Tablet (Prinivil)Indicatio ns:HTN, goal below 130/80 Take 1 Tablet by mouth in the morning. In the morning.. 90 Tablet 1 11/21/2023 Active Levothyroxine Sodium 75 MCG Oral Tablet (Levoxyl)Indication s:Acquired hypothyroidism (at least 30 min prior to breakfast or other meds)take one tablet by mouth daily at least 30 minutes before breakfast and other medications 90 Tablet 2 11/21/2023 Active Ozempic (0.25 or 0.5 MG/DOSE) 2 MG/3ML Solution Pen-injector (Semaglutide(0.25 or 0.5MG/DOS))Indicati ons:Type 2 diabetes mellitus with hemoglobin A1c goal of less than 7.0% (HCC),HTN, goal below 140/90,Hyperlipidem ia, unspecified hyperlipidemia type Inject 0.25 mg under the skin once a week. 3 mL 5 11/21/2023 Active Lisinopril 5 MG Oral Tablet (Prinivil)Indicatio ns:HTN, goal below 130/80 TAKE ONE TABLET BY MOUTH IN THE MORNING 90 Tablet 3 03/06/2023 4 Discontinu ed(Refill) Levothyroxine Sodium 75 MCG Oral Tablet (Levoxyl)Indication s:Acquired hypothyroidism take one tablet by mouth daily at least 30 minutes before breakfast and other medications 90 Tablet 3 09/01/2023 4 Discontinu ed(Refill) Ozempic (0.25 or 0.5 MG/DOSE) 2 MG/3ML Solution Pen-injector (Semaglutide(0.25 or 0.5MG/DOS))Indicati ons:Type 2 diabetes mellitus with hemoglobin A1c goal of less than 7.0% (HCC),HTN, goal below 140/90,Hyperlipidem ia, unspecified hyperlipidemia type Inject 0.25 mg under the skin once a week. 3 mL 5 11/03/2023 4 Discontinu ed(Refill) documented as of this encounter (statuses as of 11/21/2023) Active Problems Problem Noted Date Diagnosed Date [...] as of this encounter (statuses as of 11/21/2023) Resolved Problems Problem Noted Date Diagnosed Date Resolved Date Hypersomnia, recurrent 04/28/201805/01 Generalized headaches 12/26/20142020 Gastroesophageal reflux dise ase without esophagitis 12/26/2014 06/10/2019 documented as of this encounter (statuses as of 11/21/2023) Immunizations Name Administration Dates Next Due COVID-19 mRNA, LNP-s, No Pre serve, 2-Dose Series ([employer]) 05/11/2020,04/20/2020 Seasonal Influenza, PF, 6 M & [...] encounter Miscellaneous Notes * Telephone Encounter - Myranda Tristan [facility] - 11/21/2023 7:11 PM EDTSigned Prescriptions: Disp Refills Lisinopril 5 MG Oral Tablet (Prinivil) 90 Tab*1 Sig: Take 1 Tablet by mouth in the morning. In the morning..Authorizing Provider: CONNIE CHERRY User: KRUTSKI, MYRANDA VIDYA Levothyroxine Sodium 75 MCG Oral Tablet (L*90 Tab*2 Sig: (at least 30 min prior to breakfast or other meds)take one tablet by mouth daily at least 30 minutes before breakfast and other medicationsAuthorizing Provider: CONNIE CHERRY User: MYRANDA TRISTAN Ozempic (0.25 or 0.5 MG/DOSE) 2 MG/3ML Lorenza*3 mL 5 Sig: Inject 0.25 mg under the skin once a week.Authorizing Provider: CONNIE CHERRY User: MYRANDA TRISTAN * Telephone Encounter - Myranda Tristan RPh - 11/21/2023 7:11 PM EDT Rerouted remaining refills to new pharmacy as requested. Thank you, Myranda Tristan, PharmD Clinical Pharmacist [facility] 11/21/23 7:11 PM [phone] * Telephone Encounter - Andreina aLwrence CPhT - 11/21/2023 10:56 AM EDT Please reroute Rx to [facility] [address] [address]. Pending Prescriptions: Disp Refills Lisinopril 5 MG Oral Tablet (Prinivil) 90 Tab*1 Sig: Take 1 Tablet by mouth in the morning. In the morning.. Levothyroxine Sodium 75 MCG Oral Tablet (*90 Tab*2 Sig: (at least 30 min prior to breakfast or other meds) Ozempic (0.25 or 0.5 MG/DOSE) 2 MG/3ML So*3 mL 5 Sig: Inject 0.25 mg under the skin once a week. Last Visit: 10/15/2023 (in office), Visit date not found (telemedicine) 05/10/2024 If no future appointments scheduled, and last appointment is greater than a year ago, please schedule patient for a follow-up appointment Last date the medication was ordered: 03/06/2023 Patient Phone Numbers Labs: Lab Results Component Value Date/Time CREAT 0.86 06/27/2023 12:00 AM POTASSIUM 4.5 06/27/2023 12:00 AM TSH 1.337 06/27/2023 12:00 AM LDLCALC 52 06/27/2023 12:00 AM LDLDIRECT 117 03/10/2020 12:00 AM LDLDIRECT 117 03/10/2020 12:00 AM ALT 41 (H) 05/17/2022 08:11 AM ALT 72 10/18/2019 12:00 AM HGBA1C 9.9 (A) 10/10/2023 12:00 AM documented in this encounter Plan of Treatment Upcoming Encounters Date Type Department Care Team (Late st Contact Info) Description 12/31/2023 2:30 PM EDT Office Visit Sleep Disorders Ctr [facility] [address] [phone] Rachael Santos CRNP [address] [address] 05/10/2024 4:40 PM EST Office Visit Family Practice [facility] [address] [address] Connie Cherry DO [address] [address] Health Maintenance Due Date Last Done Comments [...] Not on filedocumented as of this encounter Visit Diagnoses Diagnosis HTN, goal below 130/80 Unspecified essential hypertension Acquired hypothyroidism Unspecified hypothyroidism Type 2 diabetes mellitus with hemoglobin A1c goal of less than 7.0% (HCC) HTN, goal below 140/90 Unspecified essential hypertension Hyperlipidemia, unspecified hyperlipidemia type documented in this encounter Care Teams Medical Referral Coordinator Relationship Specialty Start Date End Date Connie Cherry DO [address] [place] [address] PCP - General Family Medicine 02/23/21 documented as of this encounter
--- OUTSIDE RECORDS SUMMARY | 2024-02-02 16:09 | External Medical Summary | Summary of Care ---
Author Name Unknown Organization [facility] Address [address] [place] [place] [address] Phone [phone] Care Team Providers Care Export Freight Clerk Name Role Phone Edel Lisa DO Primary Care Provider [phone] Encounter Details Date Type Department Care Team (Late st Contact Info) Description 10/20/2023 Telephone Family Practice [facility] [address] [place] [address] Izabela Bridges CRNP [address] [place] [address] Allergies No known active allergiesdocumented as of this encounter (statuses as of 10/22/2023) Medications Medication Sig Dispensed Refills Start Date [...] as of this encounter (statuses as of 10/22/2023) Active Problems Problem Noted Date Diagnosed Date [...] as of this encounter (statuses as of 10/22/2023) Resolved Problems Problem Noted Date Diagnosed Date Resolved Date Hypersomnia, recurrent 04/28/201805/01 Generalized headaches 12/26/20142020 Gastroesophageal reflux dise ase without esophagitis 12/26/2014 06/10/2019 documented as of this encounter (statuses as of 10/22/2023) Immunizations Name Administration Dates Next Due COVID-19 mRNA, LNP-s, No Pre serve, 2-Dose Series ([employer]) 05/11/2020,04/20/2020 Seasonal Influenza, PF, 6 M & [...] Telephone Encounter - Mirian Morales LPN - 10/22/2023 9:12 AM EDT Received approval for pts Ozempkaylin via fax (planned in scans) Coverage date from 08/21/23-10/19/2024. Sent my g * Telephone Encounter - Mirian Morales LPN - 10/20/2023 7:22 AM EDT [place] request on pts ozempic 0.25 mg BIN- [id number] [facility] ID- [id number] [place] started on CMM (Desai: [id number]) Awaiting response documented in this encounter Plan of Treatment Upcoming Encounters Date Type Department Care Team (Late st Contact Info) Description 12/31/2023 2:30 PM EDT Office Visit Sleep Disorders Ctr [facility] [address] [place] [phone] Rachael Santos CRNP [address] [place] [address] 05/10/2024 4:40 PM EST Office Visit Family Practice [facility] [address] [place] [place] [address] Edel Lisa DO [address] [place] [address] Health Maintenance Due Date Last Done Comments [...] Diabetic Foot Exam 11/20/2022 11/20/2021 COVID-19 Vaccine (2022-24 season) 2023 05/11/2020, 04/20/2020 HbA1c 04/10/2024 10/10/2023, [...] filedocumented as of this encounter Care Teams Export Freight Clerk Relationship Specialty Start Date End Date Edel Lisa DO [address] [id number] PCP - General Family Medicine 02/23/21 documented as of this encounter
--- OUTSIDE RECORDS SUMMARY | 2024-02-02 16:09 | External Medical Summary | Summary of Care ---
Author Name Unknown Organization [facility] Address [address] [place] [address] Phone [phone] Care Team Providers Care Instructor Weaving Name Role Phone Edel Lisa DO Primary Care Provider [phone] Reason for Visit * Reason Onset Date Comments Test Results 10/13/2023 Encounter Details Date Type Department Care Team (Late st Contact Info) Description 10/13/2023 Telephone Family Practice [facility] [address] [place] [address] Edel Lisa DO [address] [place] [address] Test Results Allergies No known active allergiesdocumented as of this encounter (statuses as of 10/14/2023) Medications Medication Sig Dispensed Refills Start Date End Date Status Ondansetron HCl 4 MG Oral TabletIndications:Div erticulitis Take by mouth 1 Tablet every 6 hours as needed for Nausea. 30 Tablet 11/20/2021 Active Meclizine HCl 25 MG Oral Tablet (Antivert)Indications :Benign paroxysmal positional vertigo of right ear Take 1 Tablet by mouth 3 times a day as needed for Dizziness. 30 Tablet 1 07/30/2022 Active Lisinopril 5 MG Oral Tablet (Prinivil)Indications :HTN, goal below 130/80 TAKE ONE TABLET BY MOUTH IN THE MORNING 90 Tablet 3 03/06/2023 Active hydrOXYzine HCl 25 MG Oral TabletIndications:Sit uational stress Take 1 Tablet by mouth 3 times a day as needed for Anxiety. 20 Tablet 1 06/02/2023 Active Additional Information Patient not taking.Reported on 09/26/2023 metFORMIN HCl 500 MG Oral Tablet (Glucophage)Indicatio ns:Type 2 diabetes mellitus with hemoglobin A1c goal of less than 7.0% (HCC) Take 1 Tablet by mouth 2 times a day with morning and evening meals. 60 Tablet 3 07/04/2023 Active Rosuvastatin Calcium 10 MG Oral Tablet (Crestor) TAKE 1 TABLET BY MOUTH EVERY MORNING 90 Tablet 3 07/23/2023 Active Levothyroxine Sodium 75 MCG Oral Tablet (Levoxyl)Indications: Acquired hypothyroidism take one tablet by mouth daily at least 30 minutes before breakfast and other medications 90 Tablet 3 09/01/2023 Active documented as of this encounter (statuses as of 10/14/2023) Active Problems Problem Noted Date Diagnosed Date [...] as of this encounter (statuses as of 10/14/2023) Resolved Problems Problem Noted Date Diagnosed Date Resolved Date Hypersomnia, recurrent 04/28/201805/01 Generalized headaches 12/26/20142020 Gastroesophageal reflux dise ase without esophagitis 12/26/2014 06/10/2019 documented as of this encounter (statuses as of 10/14/2023) Immunizations Name Administration Dates Next Due COVID-19 mRNA, LNP-s, No Pre serve, 2-Dose Series ([employer]) 05/11/2020,04/20/2020 Seasonal Influenza, PF, 6 M & [...] encounter Miscellaneous Notes * Telephone Encounter - Arthur Manuel OSA - 10/14/2023 11:27 AM EDT Scheduled with [facility] Per pt request * Telephone Encounter - Olimpia Lopes MD - 10/14/2023 9:10 AM EDT Suggest ER f/u * Telephone Encounter - Kathie Cortez LPN - 10/14/2023 7:16 AM EDT See ER notes * Telephone Encounter - Briana Em LPN - 10/13/2023 8:24 AM EDT ----- Message from Olimpia Lopes MD sent at 10/12/2023 4:03 PM EDT ----- Hba1c very high ay 9.9 and metformin is not enough to control it. Suggest to add Glipizide XL 5 mg daily and continue metformin. Schedule f/u with pcp in 3 months for f/u and lab request Marker for blood clot negative - good news . TAYLOR could be form weigh gain and lack of exercise documented in this encounter Plan of Treatment Upcoming Encounters Date Type Department Care Team (Late st Contact Info) Description 10/15/2023 4:00 PM EDT Office Visit [facility] [address] [place] [address] Izabela Bridges CRNP [address] [place] [address] 12/31/2023 2:30 PM EDT Office Visit Sleep Disorders Ctr [facility] [address] [phone] Rachael Santos CRNP [address] [place] [address] 05/10/2024 4:40 PM EST Office Visit [facility] [address] [place] [address] Edel Lisa, [address] [place] [address] Health Maintenance Due Date Last Done Comments [...] or Tdap) 09/19/2024 09/19/2014 Mammogram 09/30/2024 10/01/2023, 0 01/2023, 09/06/2021, Additional history exists Lipid Panel [...] filedocumented as of this encounter Care Teams Instructor Weaving Relationship Specialty Start Date End Date Edel Lisa DO [address] [place] [address] PCP - General Family Medicine 02/23/21 documented as of this encounter
--- OUTSIDE RECORDS SUMMARY | 2024-02-02 16:09 | External Medical Summary | Summary of Care ---
Author Name Unknown Organization [facility] Address [address] [place] [address] Phone [phone] Care Team Providers Care Second Language Tutor Name Role Phone Edel Lisa DO Primary Care Provider [phone] Reason for Visit * Reason Onset Date Comments Forms Request 12/23/2023 Encounter Details Date Type Department Care Team (Late st Contact Info) Description 12/23/2023 Telephone Family Practice [facility] [address] [place] [address] Edel Lisa DO [address] [place] [address] Forms Request Allergies No known active allergiesdocumented [...] the form received and faxed back?Please advise [phone] documented in this encounter Plan of Treatment Upcoming Encounters Date Type Department Care Team (Late st Contact Info) Description 12/31/2023 2:30 PM EDT Office Visit Sleep Disorders Ctr [facility] [address] [phone] Rachael Santos CRNP [address] [address] 05/10/2024 4:40 PM EST Office Visit Family Practice [facility] [address] [address] Edel Lisa, DO [address] [place] [address] Health Maintenance Due Date Last Done Comments [...] filedocumented as of this encounter Care Teams Second Language Tutor Relationship Specialty Start Date End Date Edel Lisa DO [address] [address] PCP - General Family Medicine 02/23/21 documented as of this encounter
--- OUTSIDE RECORDS SUMMARY | 2024-02-02 16:09 | External Medical Summary | Summary of Care ---
Author Name Unknown Organization [facility] Address [address] [place] [place] [address] Phone [phone] Care Team Providers Care Splitter Head Name Role Phone Edel Lisa DO Primary Care Provider [phone] Reason for Visit * Reason Onset Date Comments Forms Request 12/23/2023 Encounter Details Date Type Department Care Team (Late st Contact Info) Description 12/23/2023 Telephone Family Practice [facility] [address] [place] [address] Edel Lisa DO [address] [place] [address] Forms Request Allergies No known active allergiesdocumented as of this encounter (statuses as of 12/24/2023) Medications Medication Sig Dispensed Refills Start Date [...] as of this encounter (statuses as of 12/24/2023) Active Problems Problem Noted Date Diagnosed Date [...] as of this encounter (statuses as of 12/24/2023) Resolved Problems Problem Noted Date Diagnosed Date Resolved Date Hypersomnia, recurrent 04/28/201805/01 Generalized headaches 12/26/20142020 Gastroesophageal reflux dise ase without esophagitis 12/26/2014 06/10/2019 documented as of this encounter (statuses as of 12/24/2023) Immunizations Name Administration Dates Next Due COVID-19 [...] encounter Miscellaneous Notes * Telephone Encounter - Omayra Fitzgerald, MED ASSIST - 12/24/2023 8:45 AM EDT [...] at least * Telephone Encounter - Trista Gillette, [place] - 12/23/2023 3:54 PM EDT I do [...] the form received and faxed back?Please advise [phone] documented in this encounter Plan of Treatment Upcoming Encounters Date Type Department Care Team (Late st Contact Info) Description 12/31/2023 2:30 PM EDT Office Visit Sleep Disorders Ctr [facility] [address] [place] [phone] Rachael Santos CRNP [address] [place] [address] 05/10/2024 4:40 PM EST Office Visit Family [facility] [address] [place] [address] Edel Lisa DO [address] [place] [address] Health Maintenance Due Date Last Done Comments Pneumococcal Vaccine: Pediatrics (0 to 5 Years) and At-Risk Patients (6 to 64 Years) (1 of 2 - PCV) 1967 HIV Screening 1976 Diabetic Eye Exam 1979 HPV/Co-Test 1991 Cologuard 2006 Fecal Occult Blood Test 2006 Sigmoidoscopy 2006 Zoster Vaccines (1 of 2) 2011 Depression Screening 09/17/2021 09/17/2020 Cervical Cancer Screening 09/20/2021 Pap Smear 09/20/2021 09/20/2018, 03/07/2014, 07/04/2014 (Done elsewhere) Diabetic Foot Exam 11/20/2022 [...] 01/14/2022, 01/2017, 12/21/2013 Colorectal Cancer Screening 01/15/2032 HPV [...] filedocumented as of this encounter Care Teams Splitter Head Relationship Specialty Start Date End Date Edel Lisa DO [address] [address] PCP - General Family Medicine 02/23/21 documented as of this encounter
--- OUTSIDE RECORDS SUMMARY | 2024-02-02 16:09 | External Medical Summary | Summary of Care ---
Author Name Unknown Organization [facility] Address [address] [place] [place] [address] Phone [phone] Care Team Providers Care Bulk Sealer Name Role Phone Edel Lisa DO Primary Care Provider [phone] Reason for Referral * Medication Prior Authorization - Closed Specialty Diagnoses / Procedures Referred By Contscott t Referred To Contact Diagnoses Type 2 diabetes mellitus with hemoglobin A1c goal of less than 7.0% (HCC) HTN, goal below 140/90 Hyperlipidemia, unspecified hyperlipidemia type Izabela Bridges CRNP [address] [place] [address] Referral ID Status Reason Start Date Expiration Date Visits Re quested Visits Authorized [id number] Closed [phone] Reason for Visit * Reason Onset Date Comments Side Effects of Medications 11/02/2023 [place] ent can not take Metformin, it is giving stomach pains, and diarrhea. Encounter Details Date Type Department Care Team (Late st Contact Info) Description 11/02/2023 Telephone Family Practice [facility] [address] [place] [address] Edel Lisa DO [address] [place] [address] Side Effects of Medications (Patient can n... Allergies No known active allergiesdocumented as of this encounter (statuses as of 11/03/2023) Medications Medication Sig Dispensed Refills Start Date [...] 07/30/2022 Active Lisinopril 5 MG Oral Tablet (Prinivil)Indicatio ns:HTN, goal below 130/80 TAKE ONE TABLET BY MOUTH IN THE MORNING 90 Tablet 3 03/06/2023 Active hydrOXYzine HCl 25 MG Oral TabletIndications:S [...] other medications 90 Tablet 3 09/01/2023 Active Ozempic (0.25 or 0.5 MG/DOSE) 2 MG/3ML Solution Pen-injector (Semaglutide(0.25 or 0.5MG/DOS))Indicati ons:Type 2 diabetes mellitus with hemoglobin A1c goal of less than 7.0% (HCC),HTN, goal below 140/90,Hyperlipidem ia, unspecified hyperlipidemia type Inject 0.25 mg under the skin once a week. 3 mL 5 11/03/2023 Active metFORMIN HCl ER 500 MG Oral Tablet Extended Release 24 Hour (Glucophage XR)Indications:Type 2 diabetes mellitus with hemoglobin A1c goal of less than 7.0% (HCC),HTN, goal below 140/90,Hyperlipidem ia, unspecified hyperlipidemia type Take 2 Tablets by mouth in the morning. 180 Tablet 3 11/03/2023 Active metFORMIN HCl ER 500 MG Oral Tablet Extended Release 24 Hour (Glucophage XR)Indications:Type 2 diabetes mellitus with hemoglobin A1c goal of less than 7.0% (HCC) Take 2 Tablets by mouth in the morning and 2 Tablets before bedtime. 360 Tablet 3 10/15/2023 4 Discontinu ed(Refill) Ozempic (0.25 or 0.5 MG/DOSE) 2 MG/3ML Solution Pen-injector (Semaglutide(0.25 or 0.5MG/DOS))Indicati ons:Type 2 diabetes mellitus with hemoglobin A1c goal of less than 7.0% (HCC) Inject 0.25 mg under the skin once a week. 3 mL 5 10/15/2023 4 Discontinu ed(Refill) documented as of this encounter (statuses as of 11/03/2023) Active Problems Problem Noted Date Diagnosed Date [...] as of this encounter (statuses as of 11/03/2023) Resolved Problems Problem Noted Date Diagnosed Date Resolved Date Hypersomnia, recurrent 04/28/201805/01 Generalized headaches 12/26/20142020 Gastroesophageal reflux dise ase without esophagitis 12/26/2014 06/10/2019 documented as of this encounter (statuses as of 11/03/2023) Immunizations Name Administration Dates Next Due COVID-19 mRNA, LNP-s, No Pre serve, 2-Dose Series ([employer]) 05/11/2020,04/20/2020 Seasonal Influenza, PF, 6 M & [...] Telephone Encounter - Mirian Morales LPN - 11/03/2023 10:27 AM EDT Called pt-- answered, states is at work will be home at 1530. Sent my g Call after 1530. * Telephone Encounter - Izabela Bridges CRNP - 11/03/2023 8:34 AM EDT She can decrease metformin to 1000mg (2 tablets) daily Has she started ozempic? Why did she not schedule with [facility]? * Telephone Encounter - Kayla Pascal OSA - 11/02/2023 3:38 PM EDT Patient can not take Metformin, it is giving severestomach pains, and diarrhea. Is there an alternative that she can take? Please reach out to patient to assist and discuss. documented in this encounter Plan of Treatment Upcoming Encounters Date Type Department Care Team (Late st Contact Info) Description 12/31/2023 2:30 PM EDT Office Visit Sleep Disorders Ctr [facility] [address] [place] [phone] Rachael Santos CRNP [address] [place] [address] 05/10/2024 4:40 PM EST Office Visit Family Practice [facility] [address] [place] [address] Edel Lisa DO [address] [place] [address] Health Maintenance Due Date Last Done Comments [...] 03/0 01/2017, 12/21/2013 Colorectal Cancer Screening 01/15/2032 GARDASIL-HPV IMMUNIZATION SERIES Aged Out No longer [...] as of this encounter Visit Diagnoses Diagnosis Type 2 diabetes mellitus with hemoglobin A1c goal of less than 7.0% (HCC)- Primary HTN, goal below 140/90 Unspecified essential hypertension Hyperlipidemia, unspecified hyperlipidemia type documented in this encounter Care Teams Bulk Sealer Relationship Specialty Start Date End Date Edel Lisa DO [address] [place] [address] PCP - General Family Medicine 02/23/21 documented as of this encounter
--- OUTSIDE RECORDS SUMMARY | 2024-02-02 16:09 | External Medical Summary | Summary of Care ---
Author Name Unknown Organization [facility] Address [address] [facility] [place] [address] Phone [phone] Care Team Providers Care Glass Glazier Name Role Phone Edel Lisa DO Primary Care Provider [phone] Encounter Details Date Type Department Care Team (Late st Contact Info) Description 10/12/2023 Orders Only General Internal Medicine [facility] Lindsey Soper [address] [facility] [place] [address] Olimpia Lopes MD [address] [facility] [place] [address] Allergies No known active allergiesdocumented as of this encounter (statuses as of 10/12/2023) Medications Medication Sig Dispensed Refills Start Date [...] as of this encounter (statuses as of 10/12/2023) Active Problems Problem Noted Date Diagnosed Date [...] as of this encounter (statuses as of 10/12/2023) Resolved Problems Problem Noted Date Diagnosed Date Resolved Date Hypersomnia, recurrent 04/28/201805/01 Generalized headaches 12/26/20142020 Gastroesophageal reflux dise ase without esophagitis 12/26/2014 06/10/2019 documented as of this encounter (statuses as of 10/12/2023) Immunizations Name Administration Dates Next Due COVID-19 mRNA, LNP-s, No Pre serve, 2-Dose Series ([employer] 05/11/2020,04/20/2020 Seasonal Influenza, PF, 6 M & [...] on file documented as of this encounter Plan of Treatment Upcoming Encounters Date Type Department Care Team (Late st Contact Info) Description 12/31/2023 2:30 PM EDT Office Visit Sleep Disorders Ctr [facility] [address] [place] [phone] Rachael Santos CRNP [address] [place] [address] 05/10/2024 4:40 PM EST Office Visit Family Practice [facility] [address] [place] [address] Edel Lisa DO [address] [place] [address] Health Maintenance Due Date Last Done Comments [...] 030 01/2017, 12/21/2013 Colorectal Cancer Screening 01/15/2032 Influenza [...] Not on filedocumented as of this encounter Procedures Procedure Name Priority Date/Time Associated Diagnosis Comments CHEMISTRY-OUTSIDE Routine 10/10/2023 documented in this encounter Results * (ABNORMAL) CHEMISTRY-OUTSIDE (10/10/2023) Not all results display below - see scan for full detail OUTSIDE LAB (SEE SCANNED REPORT) Comment:SCAN INCLUDES: HGB A 1C, D-DIMER, CBCD CREATININE-OUTSID E LAB OUTSIDE LAB (SEE SCANNED REPORT) EGFR-OUTSIDE LAB OUT SIDE LAB (SEE SCANNED REPORT) POTASSIUM-OUTSIDE LAB OUTSIDE LAB (SEE SCANNED REPORT) GLUCOSE-OUTSIDE LAB OUTSIDE LAB (SEE SCANNED REPORT) HOURS FASTING OUTSID E LAB (SEE SCANNED REPORT) TRIGLYCERIDES-OUT SIDE LAB OUTSIDE LAB (SEE SCANNED REPORT) CHOLESTEROL-OUTSI DE LAB OUTSIDE LAB (SEE SCANNED REPORT) HDL-OUTSIDE LAB OUTS ALYSIA LAB (SEE SCANNED REPORT) CHOL/HDL RATIO-OUTSIDE LAB OUTSIDE LA B (SEE SCANNED REPORT) LDL (CALCULATED)-OUTS ALYSIA LAB OUTSIDE LAB (SEE SCANNED REPORT) LDL (DIRECT MEASURE)-OUTSIDE LAB OUTSIDE LAB (SEE SCANNED REPORT) HEMOGLOBIN, D5X-LITBXGL LAB 9.9(A) 4.5 - 5.6 % OUTSIDE LAB (SEE SCANNED REPORT) PHOSPHORUS-OUTSID E LAB OUTSIDE LAB (SEE SCANNED REPORT) PTH-OUTSIDE LAB OUTS ALYSIA LAB (SEE SCANNED REPORT) MICROALBUMIN RATIO-OUTSIDE LAB OUTSIDE LA B (SEE SCANNED REPORT) PROTEIN, UA-OUTSIDE LAB OUTSIDE LAB (SEE SCANNED REPORT) HGB 14.5 12.0 - 16.0 G/DL OUTSIDE LAB (SEE SCANNED REPORT) 10/10/2023 Olimpia Lopes MD LABORATORY OUTSIDE LAB (SEE SCANNED REPORT) documented in this encounter Care Teams Glass Glazier Relationship Specialty Start Date End Date Edel Lisa DO [address] [place] [address] PCP - General Family Medicine 02/23/21 documented as of this encounter
--- OUTSIDE RECORDS SUMMARY | 2024-02-02 16:09 | External Medical Summary | Summary of Care ---
Author Name Unknown Organization [facility] Address [address] [place] [address] Phone [phone] Care Team Providers Care Retirement Sales Consultant Name Role Phone Edel Lisa DO Primary Care Provider [phone] Reason for Visit * Reason Onset Date Comments Forms Request 10/15/2023 Encounter Details Date Type Department Care Team (Late st Contact Info) Description 10/15/2023 Telephone Family Practice [facility] [address] [place] [address] Edel Lisa DO [address] [place] [address] Forms Request Allergies No known active allergiesdocumented [...] mRNA, LNP-s, No Pre serve, 2-Dose Series ([employer]) 05/11/2020,04/20/2020 Seasonal Influenza, PF, 6 M & [...] Miscellaneous Notes * Telephone Encounter - Trista Gillette RN - 10/20/2023 3:17 PM EDT Form faxed. Copy sent to scan. Original mailed to pt. * Telephone Encounter - Edel Lisa DO [...] PM EDT Office Visit Sleep Disorders Ctr [facility] [address] [place] [phone] Rachael Santos CRNP [address] [place] [address] 05/10/2024 4:40 PM EST Office Visit Family Practice [facility] [address] [place] [address] Edel Lisa DO [address] [place] [address] Health Maintenance Due Date Last Done Comments [...] filedocumented as of this encounter Care Teams Retirement Sales Consultant Relationship Specialty Start Date End Date Edel Lisa DO [address] [place] [address] PCP - General Family Medicine 02/23/21 documented as of this encounter
--- OUTSIDE RECORDS SUMMARY | 2024-02-02 16:09 | External Medical Summary | Summary of Care ---
Author Name Unknown Organization [facility] Address [address] [place] [address] Phone [phone] Care Team Providers Care Chief Strategy Officer Name Role Phone Edel Lisa DO Primary Care Provider [phone] Reason for Visit * Reason Onset Date Comments Referral 10/27/2023 [facility] d/c (DM) Encounter Details Date Type Department Care Team (Late st Contact Info) Description 10/27/2023 Telephone [facility], Marie Antonio [address] [place] [address] [place] [address] [facility] Emily [address] [facility] [place] [address] Referral ([facility] d/c (DM)) Allergies No known active allergiesdocumented as of this encounter (statuses as of 10/27/2023) Medications Medication Sig Dispensed Refills Start Date [...] as of this encounter (statuses as of 10/27/2023) Active Problems Problem Noted Date Diagnosed Date [...] as of this encounter (statuses as of 10/27/2023) Resolved Problems Problem Noted Date Diagnosed Date Resolved Date Hypersomnia, recurrent 04/28/201805/01 Generalized headaches 12/26/20142020 Gastroesophageal reflux dise ase without esophagitis 12/26/2014 06/10/2019 documented as of this encounter (statuses as of 10/27/2023) Immunizations Name Administration Dates Next Due COVID-19 mRNA, LNP-s, No Pre serve, 2-Dose Series ([employer]) 05/11/2020,04/20/2020 Seasonal Influenza, PF, 6 M & [...] encounter Miscellaneous Notes * Telephone Encounter - Ania Sims, alteration worker - 10/27/2023 1:31 PM EDT Angela has not contacted the clinic to schedule/reschedule an appointment for diabetes management per referral from PCP despite multiple attempts to do so by our team. Patient is discharged from [facility] services at this time. Thank you, Ania Sims Rail Car Maintenance Mechanic [facility] 10/27/2023,1:31 PM documented in this encounter Plan of Treatment Upcoming Encounters Date Type Department Care Team (Late st Contact Info) Description 12/31/2023 2:30 PM EDT Office Visit Sleep Disorders Ctr [facility] [address] [place] [phone] Rachael Santos CRNP [address] [place] [address] 05/10/2024 4:40 PM EST Office Visit Family Practice [facility] [address] [place] [address] Edel Lisa DO [address] [place] [address] Health Maintenance Due Date Last Done Comments [...] season) 2023 05/11/2020, 04/20/2020 HbA1c 04/10/2024 10/10/2023, 022 08/2023, 11/15/2022, Additional history exists Albumin/Creatinine Ratio 06/27/2024 [...] filedocumented as of this encounter Care Teams Chief Strategy Officer Relationship Specialty Start Date End Date Edel Lisa DO [address] [place] [address] PCP - General Family Medicine 02/23/21 documented as of this encounter
--- OUTSIDE RECORDS SUMMARY | 2024-02-02 16:09 | External Medical Summary | Summary of Care ---
Author Name Unknown Organization [facility] Address [address] [place] [address] Phone [phone] Care Team Providers Care Machinist 2Nd Shift Name Role Phone Edel Lisa DO Primary Care Provider [phone] Reason for Visit * Reason Onset Date Comments Health Maintenance 12/22/2023 Encounter Details Date Type Department Care Team (Late st Contact Info) Description 12/22/2023 Telephone Family Practice [facility] [address] [place] [address] Edel Lisa DO [address] [place] [address] Health Maintenance Allergies No known active allergiesdocumented as of this encounter (statuses as of 12/22/2023) Medications Medication Sig Dispensed Refills Start Date [...] as of this encounter (statuses as of 12/22/2023) Active Problems Problem Noted Date Diagnosed Date [...] as of this encounter (statuses as of 12/22/2023) Resolved Problems Problem Noted Date Diagnosed Date Resolved Date Hypersomnia, recurrent 04/28/201805/01 Generalized headaches 12/26/20142020 Gastroesophageal reflux dise ase without esophagitis 12/26/2014 06/10/2019 documented as of this encounter (statuses as of 12/22/2023) Immunizations Name Administration Dates Next Due COVID-19 [...] Outreach Action Taken: Unable to reach and [employer] message sent documented in this encounter Plan of Treatment Upcoming Encounters Date Type Department Care Team (Late st Contact Info) Description 12/31/2023 2:30 PM EDT Office Visit Sleep Disorders Ctr [facility] [address] [place] [phone] Rachael Santos CRNP [address] [place] [address] 05/10/2024 4:40 PM EST Office Visit Family Practice [facility] [address] [place] [address] Edel Lisa DO [address] [place] [address] Health Maintenance Due Date Last Done Comments [...] filedocumented as of this encounter Care Teams Machinist 2Nd Shift Relationship Specialty Start Date End Date Edel Lisa DO [address] [place] [address] PCP - General Family Medicine 02/23/21 documented as of this encounter
[2024-02-02] MEDS: INSULIN ASPART PER UNIT CHARGE SC SCH (17:46)
[2024-02-02] MEDS: IBUPROFEN 600 MG TAB PO SCH (18:44)
[2024-02-02] MEDS: BACLOFEN 10 MG TAB PO SCH (18:45)
[2024-02-02] MEDS: LIDOCAINE 5% 1 PATCH TD SCH (18:45)
[2024-02-02] MEDS: LORazepam 0.5 MG TAB PO STA (23:24)
[2024-02-03] MEDS: GADOBUTROL 65ML VIAL IV ONE (00:29)
--- NOTE | 2024-02-03 03:15 | Magnetic Resonance Report ---
Exam(s): MRI L SPINE W/WO Contrast IV Amt: 8.5cc gadavist EXAM: MR Lumbar Spine Without and With Intravenous Contrast CLINICAL HISTORY: Reason for exam: Intractable low back pain. TECHNIQUE: Magnetic resonance images of the lumbar spine without and with intravenous contrast in multiple planes. CONTRAST: Patient received 8.5cc gadavist of IV contrast COMPARISON: Prior plain film images of the lumbar spine from February 02, 2024. FINDINGS: Vertebrae: There are 5 lumbar Vertebral bodies with a mild generalized curve to the left and shallow lumbar lordosis. There is normal vertebral body height and alignment. The bone low signal is heterogeneous with reactive endplate changes. No acute fracture. Spinal cord: The conus is normal size, shape and signal characteristics, terminating at T12-L1.. No abnormal enhancement. Soft tissues: Moderate to advanced atrophy of the iliopsoas, paraspinous intraspinous musculature. The aorta and IVC flow voids are intact. The visualized kidneys are unremarkable. DISCS/SPINAL CANAL/NEURAL FORAMINA: L1-L2: The intervertebral disc is normal. There is minimal to mild facet arthropathy with mild synovitis. L2-L3: The intervertebral disc is normal. There is minimal facet arthropathy with mild synovitis. L3-L4: There is mild disc degeneration with annular disc bulge asymmetric to the left flattening the ventral thecal sac with disc extending to the neural foramina without impingement or significant stenosis. There is mild facet joint arthropathy with mild synovitis. L4-L5: Moderate disc degeneration with annular disc bulge flattening the ventral thecal sac with disc extending to the neural foramina causing a mild right stenosis without evidence of neural impingement. There is minimal to mild facet joint arthropathy with mild synovitis. L5-S1: Moderate disc degeneration with annular disc bulge flattening the ventral thecal sac with disc and osteophyte extending to the neural foramina causing mild bilateral stenosis without evidence of neural impingement. There is minimal to mild facet arthropathy with mild synovitis. IMPRESSION: 1. Moderate disc degeneration at L4-5, L5-S1 and mild disc degeneration at L3-4 with annular disc bulging flattening the ventral thecal sac. 2. There is no spinal canal stenosis. 3. There is mild bilateral L5-S1 neural foraminal stenosis without evidence of neural impingement. 4. There is minimal to mild facet arthropathy with mild synovitis. 5. No evidence of fracture, infection, tumor or arachnoiditis. Electronically signed by: Maria Elena Hidalgo MD 02/03/24 03:14 AM
[2024-02-03] MEDS ORDERED: Nursing to Pharmacy Communication SCH (04:15)
[2024-02-03] MEDS: LEVOTHYROXINE SODIUM 75 MCG TABLET PO SCH (05:26)
[2024-02-03 06:34] LABS: Hematocrit (blood only) 40.4 % (37.0-47.0); Hemoglobin 13.8 g/dl (12.0-16.0); Mean Corpuscular Hemoglobin 29.1 pg (25.0-34.0); Mean Corpuscular Hgb Conc 34.2 g/dL (32.0-36.0); Mean Corpuscular Volume 85.1 fL (80.0-100.0); Mean Platelet Volume 11.6 fL (9.4-12.4); Platelet Count 214 K/uL (130-400); RDW Coefficient of Variation 11.8 % (11.5-14.5); RDW Standard Deviation 35.8 fL (36.4-46.3); Red Blood Count 4.75 M/uL (4.20-5.40); White Blood Count 9.94 K/ul (4.8-10.8)
[2024-02-03 06:48] LABS: BUN Creatinine Ratio 22.5 (10-20); Calcium 9.2 mg/dl (8.6-10.3); Creatinine Clr Calc Pharmacy 76.3 ml/min; Est GFR (African American) 91.6 ml/min; Magnesium 1.9 mg/dl (1.7-2.4); Phosphorus 3.5 mg/dl (2.5-4.9); Potassium 4.2 mmol/L (3.5-5.1)
[2024-02-03 07:23] LABS: Estimated Average Glucose 189 mg/dl; Hemoglobin A1C 8.2 % (4.5-5.6)
[2024-02-03] MEDS: lisinopril 5 MG TAB PO SCH (08:07)
[2024-02-03] MEDS: ROSUVASTATIN CALCIUM 10 MG TAB PO SCH (08:08)
[2024-02-03] MEDS: LIDOCAINE 5% 1 PATCH TD SCH (08:08)
[2024-02-03] MEDS ORDERED: methylPREDNISolone 125 MG/2 ML VIAL IV SCH (09:00)
[2024-02-03] MEDS: methylPREDNISolone 40 MG in SYRINGE 0 ML IV SCH (09:26)
[2024-02-03] MEDS: HYDROmorphone INJ 0.5 MG/0.5 ML SYR IV PRN (09:33)
--- NOTE | 2024-02-03 10:22 | Consultation ---
Date of Consultation February 03, 2024 Assessment & Plan (1) Low back pain: Dr. Jackson has reviewed imaging and treatment plan. Treatment is conservative. There are no acute surgical indications. She appears to have an acute flareup of back pain on her top of her chronic lower back issues. She can start physical therapy. Continue with pain control. If no improvement would consider consulting pain management for possible injection vs different pain management medication options. Ambulate ad gudelia. Will sign off. History of Present Illness Attending Physician: Yuriy Hall MD History of Present Illness This is a 63-year-old female who presented to the ER yesterday evening secondary to lower back and left leg pain. She reports that 2 days ago she was lifting up her 2-year-old granddaughter and had a severe onset of lower back pain rating to the left lower extremity. She denies having these symptoms in the past. States yesterday she was unable to get out of bed. Activity and ambulation as well as bending over reproduce her symptoms. She is most comfortable laying down with her knees flexed. Denies bowel or bladder dysfunction. Denies perineum numbness. Pain radiates as a band across the waistline and down the left lower extremity mostly along the anterior thigh and some tingling into her toes. Allergies Allergy/AdvReac Type Severity Reaction Status Date / Time No Known Allergies Allergy Verified 10/06/23 12:00 Home Medications Medication Instructions Recorded Confirmed Type levothyroxine 75 mcg capsule 75 mcg PO QAM 08/20/20 02/02/24 History hydroxyzine HCl 25 mg tablet 25 mg PO TID PRN Anxiety 02/02/24 02/02/24 History lisinopril 5 mg tablet 5 mg PO QAM 02/02/24 02/02/24 History rosuvastatin 10 mg tablet 10 mg PO QAM 02/02/24 02/02/24 History semaglutide 0.25 mg or 0.5 mg (2 0.25 mg subcut .WEEKLY 02/02/24 02/02/24 History mg/3 mL) subcutaneous pen injector (Ozempic) Patient History Medical History Diabetes mellitus, type 2 Hypertension Sinus bradycardia Diverticulitis Syncope Diverticulosis Hypothyroidism HTN (hypertension) OFF MEDS GERD (gastroesophageal reflux disease) Hypercholesterolemia PT NOT SURE Surgical History History of back surgery Nausea after anesthesia History of colonoscopy S/P laparoscopic procedure r/o ectopic , had early IUP per notes History of back surgery "ant cervical arthroplasty with discectomy C4-C6"/MILD LIMITATION WITH LOOKING UP Family History Mother Family history of diabetes mellitus Sister Family history of diabetes mellitus Sister Family history of diabetes mellitus Sister Family history of diabetes mellitus Denies family history of Ovarian cancer Deep vein thrombosis Clotting disorder Breast cancer Colorectal cancer Uterine cancer Social History Smoking Status: Former smoker Second Hand Exposure: No; Do You Dip or Chew Tobacco: No; Hx Alcohol Use: Yes Alcohol type: wine Hx Substance Use: No Preferred Language: Greenlandic Communication Ability: Effective Lens Gauger Required: No Beliefs That Will Affect Care: None marital status: Current Living Situation: Family current occupational status: employed 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 Easily arousable and follows commands Alert and oriented x 3 She is able to roll over for me. Nontender to palpation of the midline lumbar spine Nontender over the sciatic notch regions negative tension signs bilateral lower extremities motor testing is 5 5 bilateral EHL, dorsiflexion, plantarflexion, Cordyceps, hamstrings, hip flexors, hip abductor's and hip adductor's Results & Data Vital Signs (Past 12 Hours) Vital Signs Temp Pulse Resp BP Pulse Ox O2 Del Method 02/03/24 07:12 36.4 C L 67 16 120/73 98 Room Air 02/03/24 03:47 36.4 C L 62 18 109/74 99 Room Air Diagnostic Findings [facility], [place] [phone] XRay Report Patient: EAGLE HERNANDEZ Admit Date: 02/02/24 MR#: [id number] Address1: [address] [place] [address] Acct ID:[id number] Address2: Date: 1960 [facility] Zip: [place] [address] Age: 63 Location: ED Sex: F Room/Bed: Att Phy: Diagnosis: back pain Olivia Phy: Edel Lisa, DO Service Date: 02/02/24 Fam Phy: Interpreting Phy: Amadeo Fairchild MDArenu Phy: Ordering Phy: Enrique Prajapati, cc: ~ XR lumbar spine 2-3V CLINICAL HISTORY: lower back pain TECHNIQUE: 3 views of the lumbar spine were obtained. Comparison: Comparison is made to lumbar spine radiographs 05/25/2011 FINDINGS: There is no evidence of an acute fracture. Degenerative changes are seen in the lumbar spine with osteophyte formation and disc space narrowing. The alignment is normal. No soft tissue abnormality is seen. IMPRESSION: Degenerative changes as above without acute fracture or subluxation. ACT 112: Negative or not required by law. Electronically signed by: Amadeo Fairchild M.D. 02/02/2024 10:50 AM Dictated: 02/02/24 1047 Transcribed: 02/02/24 1047 [facility], [place] [phone] Magnetic Resonance Report Patient: EAGLE HERNANDEZ Admit Date: 02/02/24 MR#: [id number] Address1: [address] [place] [address] Acct ID:[id number] Address2: Date: 1960 [facility] Zip: [place] [address] Age: 63 Location: 3W Sex: F Room/Bed: [facility] Att Phy: Chito Petersen, Diagnosis: INTRACTABLE LOW BACK PAIN Olivia Phy: Edel Lisa, DO Service Date: 02/03/24 Fam Phy: Interpreting Phy: Maria Elena Hidalgo MDArenu Phy: Chito Petersen DO Ordering Phy: Angelina Lyn PA-C cc: ~ Exam(s): MRI L SPINE W/WO Contrast IV Amt: 8.5cc gadavist EXAM: MR Lumbar Spine Without and With Intravenous Contrast CLINICAL HISTORY: Reason for exam: Intractable low back pain. TECHNIQUE: Magnetic resonance images of the lumbar spine without and with intravenous contrast in multiple planes. CONTRAST: Patient received 8.5cc gadavist of IV contrast COMPARISON: Prior plain film images of the lumbar spine from February 02, 2024. FINDINGS: Vertebrae: There are 5 lumbar Vertebral bodies with a mild generalized curve to the left and shallow lumbar lordosis. There is normal vertebral body height and alignment. The bone low signal is heterogeneous with reactive endplate changes. No acute fracture. Spinal cord: The conus is normal size, shape and signal characteristics, terminating at T12-L1.. No abnormal enhancement. Soft tissues: Moderate to advanced atrophy of the iliopsoas, paraspinous intraspinous musculature. The aorta and IVC flow voids are intact. The visualized kidneys are unremarkable. DISCS/SPINAL CANAL/NEURAL FORAMINA: L1-L2: The intervertebral disc is normal. There is minimal to mild facet arthropathy with mild synovitis. L2-L3: The intervertebral disc is normal. There is minimal facet arthropathy with mild synovitis. L3-L4: There is mild disc degeneration with annular disc bulge asymmetric to the left flattening the ventral thecal sac with disc extending to the neural foramina without impingement or significant stenosis. There is mild facet joint arthropathy with mild synovitis. L4-L5: Moderate disc degeneration with annular disc bulge flattening the ventral thecal sac with disc extending to the neural foramina causing a mild right stenosis without evidence of neural impingement. There is minimal to mild facet joint arthropathy with mild synovitis. L5-S1: Moderate disc degeneration with annular disc bulge flattening the ventral thecal sac with disc and osteophyte extending to the neural foramina causing mild bilateral stenosis without evidence of neural impingement. There is minimal to mild facet arthropathy with mild synovitis. IMPRESSION: 1. Moderate disc degeneration at L4-5, L5-S1 and mild disc degeneration at L3-4 with annular disc bulging flattening the ventral thecal sac. 2. There is no spinal canal stenosis. 3. There is mild bilateral L5-S1 neural foraminal stenosis without evidence of neural impingement. 4. There is minimal to mild facet arthropathy with mild synovitis. 5. No evidence of fracture, infection, tumor or arachnoiditis. Electronically signed by: Maria Elena Hidalgo MD 02/03/24 03:14 AM Dictated: 02/03/24313 Transcribed: 02/03/24313 Document Auto-Saved (1) Low back pain Chronicity: acute Back pain laterality: unspecified Sciatica presence: unspecified whether sciatica present Qualified Code(s): M54.50 - Low back pain, unspecified
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
[2024-02-03] MEDS: DOCUSATE SODIUM/SENNA 50/8.6MG TAB PO SCH (20:52)
[2024-02-03] MEDS: oxyCODONE HCL IR 5 MG TAB (IMMEDIATE RELEASE) PO PRN (22:28)
[2024-02-04 07:20] VITALS: PULSE 69; RESP 14; TEMP 97.9; O2SAT 97
[2024-02-04] MEDS: FAMOTIDINE 20 MG TAB PO SCH (08:09)
--- NOTE | 2024-02-04 09:48 | Pain Management Consultation ---
Date of Consultation February 04, 2024 Assessment & Plan (1) Low back pain: Back pain laterality: unspecified Chronicity: acute Sciatica presence: unspecified whether sciatica present Qualified Code(s): M54.50 - Low back pain, unspecified (2) History of back surgery: Plan 1. Recommended TPI's into the lumbar area of concern. * The risks, benefits, and alternatives of the procedure were discussed in detail with the patient, and in full understanding of the procedure to be performed, the patient elects to proceed as discussed. TRIGGER POINT INJECTION Diagnosis: Myofascial Pain Injection Site: Lumbar paraspinal, bilateral Performed By: Enrique Gregg PA-C Medications used: Ropivacaine 0.5% -7 mL Kenalog 40 mg/mL - 1 mL Toradol 30 mg/mL - 2 mL Prior to starting, the diagnosis and the procedure was reviewed with the patient in detail. Possible risks and complications including infection, bleeding, damage to surrounding structures and increased pain were discussed. Alternative therapies were also reviewed. All questions were answered and they agreed to proceed. Informed consent was obtained. Allergies and medication list was reviewed. The patient was placed in sitting position. Immediately prior to starting the procedure, a time out was conducted with the staff and the patient where the patient was identified, proposed procedure was verified, consent was reviewed and the proper site for the planned procedure was identified. Patient was not given any intravenous sedation and constant verbal contact was maintained throughout the procedure. On examination, no signs of skin breakdown or infection were noted at the injection site. The site was cleansed with ChloraPrep followed by alcohol. Sterile technique was used throughout the procedure. After identifying skeletal landmarks, the musculature as above was injected at 6 separate locations with approximately 1.52 mL at each site, from a solution containing 8 mL of 0.5% Ropivacaine MPF, 1 mL of 30 mg/mL Toradol, and 1 mL of 40 mg/mL Kenalog. Aspiration was negative. Hemostasis noted. Patient tolerated the procedure uneventfully without complications. 2. Apply heat and perform massage over the next couple of days. * Ordered K-pad. 3. Also ordered ice to be applied, alternating with the heat. 4. Avoid soaking the area for 48 hours. 5. Continue acetaminophen, oxycodone, and baclofen. Recommend limiting, preferably discontinuing TANISHA, the IV hydromorphone in preparation for discharge. 6. If symptoms persist despite today's TPI's, consideration could be given for an oral steroid taper that could be continued into outpatient status. However, we will also need to take into account patient's diabetes. 7. Avoid strenuous activity or exercise that would involve the low back. 8. Instructed patient that if her left lower extremity symptoms, which are currently only minimally bothersome to her, persist and she would like to do something about it, then she should make a follow-up visit to be seen as an outpatient at the pain management clinic. History of Present Illness Attending Physician: Yuriy Hall MD History of Present Illness Patient is a 63-year-old female with a past medical history of hematuria, diverticulitis and chronic back pain who presents to the ER for back pain. She notes yesterday she bent over to citrus picker 2-year-old. When she bent over she felt a pop. Since that she has been having severe pain in her lower back. Radiates down the left anterior leg. She denies any weakness or numbness. She able to urinate move her bowels. She notes she really has not been able to walk since then. No chest pain or shortness of breath. No cough or congestion. Patient is a 63-year-old female who presents ER for the above-stated complaint. IV was established medicos obtained. Labs show no significant leukocytosis or anemia. BMP with slightly elevated glucose at 164. T. bili at 1.4. LFTs was unremarkable. X-rays and lumbar spine were unremarkable. Patient was given fluids Toradol and morphine. Updated at bedside. Still unable to move consequently was discussed with the hospitalist for further evaluation management treatment. Discussed with Pt concerning signs and symptoms to watch out for. Pt was instructed to follow up with their PCP and discussed with the patient their option to return to the ED at anytime for persistent or worsening symptoms. The appropriate anticipatory guidance and out-patient management, including indications for return to the emergency department, were explained at length to the patient and understood. Patient is a 63-year-old female who presented to the ER yesterday evening secondary to lower back and left leg pain. She reports that 2 days ago she was lifting up her 2-year-old granddaughter and had a severe onset of lower back pain rating to the left lower extremity. She denies having these symptoms in the past. States yesterday she was unable to get out of bed. Activity and ambulation as well as bending over reproduce her symptoms. She is most comfortable laying down with her knees flexed. Denies bowel or bladder dysfunction. Denies perineum numbness. Pain radiates as a band across the waistline and down the left lower extremity mostly along the anterior thigh and some tingling into her toes. Allergies Allergy/AdvReac Type Severity Reaction Status Date / Time No Known Allergies Allergy Verified 10/06/23 12:00 Home Medications Medication Instructions Recorded Confirmed Type levothyroxine 75 mcg capsule 75 mcg PO QAM 08/20/20 02/02/24 History hydroxyzine HCl 25 mg tablet 25 mg PO TID PRN Anxiety 02/02/24 02/02/24 History lisinopril 5 mg tablet 5 mg PO QAM 02/02/24 02/02/24 History rosuvastatin 10 mg tablet 10 mg PO QAM 02/02/24 02/02/24 History semaglutide 0.25 mg or 0.5 mg (2 0.25 mg subcut .WEEKLY 02/02/24 02/02/24 History mg/3 mL) subcutaneous pen injector (Ozempic) Patient History Medical History Diabetes mellitus, type 2 Hypertension Sinus bradycardia Diverticulitis Syncope Diverticulosis Hypothyroidism HTN (hypertension) OFF MEDS GERD (gastroesophageal reflux disease) Hypercholesterolemia PT NOT SURE Surgical History History of back surgery Nausea after anesthesia History of colonoscopy S/P laparoscopic procedure r/o ectopic , had early IUP per notes History of back surgery "ant cervical arthroplasty with discectomy C4-C6"/MILD LIMITATION WITH LOOKING UP Family History Mother Family history of diabetes mellitus Sister Family history of diabetes mellitus Sister Family history of diabetes mellitus Sister Family history of diabetes mellitus Denies family history of Ovarian cancer Deep vein thrombosis Clotting disorder Breast cancer Colorectal cancer Uterine cancer Social History Smoking Status: Former smoker Second Hand Exposure: No; Do You Dip or Chew Tobacco: No; Hx Alcohol Use: Yes Alcohol type: wine Hx Substance Use: No Preferred Language: Cymro Communication Ability: Effective Chicken Handler Required: No Beliefs That Will Affect Care: None marital status: Current Living Situation: Family current occupational status: employed current occupation: [employer] Other Information That Helps Us Care for You: No Feels Safe at Home: Yes Safety Concerns: Feels Safe At This Time Assistive Devices: None Physical Exam Physical Exam: GENERAL: Speech and cognition is intact. Mood and affect is appropriate. Does not appear in acute distress. HEAD: Normocephalic; atraumatic. NECK: Trachea is midline. CHEST: Regular chest respiration and excursion. EXTREMITIES: Full ROM. No TTP. Distal sensation and pulses intact bilaterally. BACK: Diminished/Full ROM.There is no midline, SI joint, or facet joint tenderness. Pain is [worsened/unchanged] with facet load bearing. Pain is [worsened/unchanged] with flexion or extension. No lumbosacral tenderness. There is no paraspinal, quadratus lumborum, piriformis, or gluteal tenderness or spasm.Inspection/palpation demonstrates normal lumbar lordotic curvature. NEURO: CN II-XII grossly intact with no focal deficits noted. Normal gait. Awake, alert, and oriented x 3. Patellar Reflex R 2+L 2+ Achilles Reflex R 2+L 2+ Negative clonus bilaterally SKIN: No lesions, erythema, or rashes noted. LOWER EXTREMITIES: Negative straight leg raise bilaterally. R Hip flexion 5/5; hip extension 5/5; knee extension 5/5; knee flexion 5/5; ankle dorsiflexion 5/5; ankle plantar flexion 5/5; EHL 5/5 L Hip flexion 5/5; hip extension 5/5; knee extension 5/5; knee flexion 5/5; ankle dorsiflexion 5/5; ankle plantar flexion 5/5; EHL 5/5 Special tests: R Reggie/Kyler maneuver: L Reggie/Kyler maneuver: R Thigh thrust: L Thigh thrust: R SI compression test: L SI compression test: R Gaenslen test: L Gaenslen test: R Distraction test: L Distraction test: [Negative/Positive] Slump test [Right/Left/Bilateral] Results (Pain Clinic) Diagnostic Review MRI Findings: Exam(s): MRI L SPINE W/WO Contrast IV Amt: 8.5cc gadavist EXAM: MR Lumbar Spine Without and With Intravenous Contrast CLINICAL HISTORY: Reason for exam: Intractable low back pain. TECHNIQUE: Magnetic resonance images of the lumbar spine without and with intravenous contrast in multiple planes. CONTRAST: Patient received 8.5cc gadavist of IV contrast COMPARISON: Prior plain film images of the lumbar spine from February 02, 2024. FINDINGS: Vertebrae: There are 5 lumbar Vertebral bodies with a mild generalized curve to the left and shallow lumbar lordosis. There is normal vertebral body height and alignment. The bone low signal is heterogeneous with reactive endplate changes. No acute fracture. Spinal cord: The conus is normal size, shape and signal characteristics, terminating at T12-L1.. No abnormal enhancement. Soft tissues: Moderate to advanced atrophy of the iliopsoas, paraspinous intraspinous musculature. The aorta and IVC flow voids are intact. The visualized kidneys are unremarkable. DISCS/SPINAL CANAL/NEURAL FORAMINA: L1-L2: The intervertebral disc is normal. There is minimal to mild facet arthropathy with mild synovitis. L2-L3: The intervertebral disc is normal. There is minimal facet arthropathy with mild synovitis. L3-L4: There is mild disc degeneration with annular disc bulge asymmetric to the left flattening the ventral thecal sac with disc extending to the neural foramina without impingement or significant stenosis. There is mild facet joint arthropathy with mild synovitis. L4-L5: Moderate disc degeneration with annular disc bulge flattening the ventral thecal sac with disc extending to the neural foramina causing a mild right stenosis without evidence of neural impingement. There is minimal to mild facet joint arthropathy with mild synovitis. L5-S1: Moderate disc degeneration with annular disc bulge flattening the ventral thecal sac with disc and osteophyte extending to the neural foramina causing mild bilateral stenosis without evidence of neural impingement. There is minimal to mild facet arthropathy with mild synovitis. IMPRESSION: 1. Moderate disc degeneration at L4-5, L5-S1 and mild disc degeneration at L3-4 with annular disc bulging flattening the ventral thecal sac. 2. There is no spinal canal stenosis. 3. There is mild bilateral L5-S1 neural foraminal stenosis without evidence of neural impingement. 4. There is minimal to mild facet arthropathy with mild synovitis. 5. No evidence of fracture, infection, tumor or arachnoiditis. Electronically signed by: Maria Elena Hidalgo MD 02/03/24 03:14 AM Dictated: 02/03/24313 Transcribed: 02/03/24313 Radiology Findings: XR lumbar spine 2-3V CLINICAL HISTORY: lower back pain TECHNIQUE: 3 views of the lumbar spine were obtained. Comparison: Comparison is made to lumbar spine radiographs 05/25/2011 FINDINGS: There is no evidence of an acute fracture. Degenerative changes are seen in the lumbar spine with osteophyte formation and disc space narrowing. The alignment is normal. No soft tissue abnormality is seen. IMPRESSION: Degenerative changes as above without acute fracture or subluxation. ACT 112: Negative or not required by law. Electronically signed by: Amadeo Fairchild M.D. 02/02/2024 10:50 AM Dictated: 02/02/[id number] Transcribed: 02/02/241046 Previous Records Review Previous Records: personally reviewed by me
--- NOTE | 2024-02-04 12:14 | Discharge Summary ---
Date of Service February 04, 2024 Admission HPI Per Admitting Provider Angela Fowler is a 63y/o F with PMHx significant for DM type II, acquired hypothyroidism, HTN, HLD, sinus bradycardia, MISSY, GERD and diverticulitis who presented to the ED via EMS for evaluation of back pain. History obtained from patient, at bedside and associated chart review. Patient seen at bedside with Dr. Petersen. Patient was trying to pickler helper her 2y/o granddaughter yesterday when all of the sudden her lower back "locked up" and she "felt a pop." She was unable to stand up straight at first when this occurred and had to have her assist her. She is continuing to have intractable lower back pain. She tried leftover oxycodone that she had at home without any relief. Also tried Tylenol without any relief. She has been able to urinate, however it is extremely difficult to ambulate without assistance due to her pain and limited mobility. Denies any chest pain or SOB. Has not had a BM since this incidence occurred although she denies any urinary incontinence. 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 No fevers, body aches or chills. No recent sick contacts. No trauma to her lower back region either that she nor her recalls. Admission Exam Per Admitting Provider General- adult female seen supine in bed in the ED, Looks uncomfortable Head- atraumatic Eyes- PERRL, EOMI, anicteric ENT- oropharynx clear Neck- supple, no JVD, no adenopathy, no thyromegaly; carotids +2/2, no bruits appreciated Lungs- clear to auscultation and percussion Heart- regular rhythm; no murmur, no gallop, no rub appreciated Abdomen- normal bowel sounds, soft, nontender, no masses or hepatosplenomegaly Extremities- no pretibial edema, no calf tenderness; peripheral pulses intact Neuro- alert, oriented x 3; PERRL, EOMI; no facial palsy; no dysarthria; motor 5/5 bilaterally; MS: + SLR on left at 30 degrees Skin- warm & dry Principal Diagnosis Low Back Pain Likely 2/2 Musculoskeletal Strain Discharge Exam General: WD/WN, vitals as above, NAD, sitting up in bed, pleasant, conversing appropriately. A+Ox3, euthymic affect. HEENT: Normocephalic, atraumatic. PERRL, conjunctivae normal, anicteric sclerae. External ear and nose normal, oropharynx normal. Respiratory: Normal respiratory effort, lungs clear to auscultation, no wheeze, rales, rhonchi. No accessory muscle use. Cardiovascular: Regular rate, rhythm, no murmur, normal peripheral pulses, no BLE edema. Vessels: No JVD. Abdomen/GI: Normal bowel sounds, soft, nontender, no hepatosplenomegaly. Extremities/Musculoskeletal: Extremities motor strength intact, pain to palpation of lower back region. Neurologic: EOMI, no focal deficits, CN's II-XI not formally tested but appear grossly intact bilaterally. Skin: No rashes, normal color, warm/dry. Discharge Data Allergies Allergy/AdvReac Type Severity Reaction Status Date / Time No Known Allergies Allergy Verified 10/06/23 12:00 Consultations 02/02/24 11:31 ED Decision to Admit Stat 02/03/24 09:22 Consult Orthopedic Spine Surgery Routine 02/03/24 15:04 Consult Pain Management Routine Ordered Studies 02/03/24 00:09 MR lumbar spine wo/w con Routine Hospital Course (1) Low back pain: Jennifer Fowler is a 63y/o F with PMHx significant for DM type II, acquired hypothyroidism, HTN, HLD, sinus bradycardia, MISSY, GERD and diverticulitis who presented to the ED via EMS on 02/02/24 for evaluation of low back pain. Low Back Pain Likely 2/2 Musculoskeletal Strain: Lab work rather unremarkable. Lumbar spine XR without any acute fractures or subluxation however does note degenerative changes. Lumbar spine MRI without significant cord compression or spinal stenosis but did note the following --> moderate disc degeneration at L4-L5, L5-S1 and mild disc degeneration at L3-4 with annular disc bulge and flattening the ventral thecal sac, mild bilateral L5-S1 neural foraminal stenosis without evidence of neural impingement and minim al to mild facet arthropathy with mild synovitis. She was managed with IV Solu- Medrol and scheduled baclofen in addition to topical lidocaine patches and ice application. Orthopedic spinal surgery was consulted. Dr. Jackson reviewed the patient's imaging and treatment plan was determined to be conservative with no acute surgical intervention warranted. More than likely an acute flare-up of her back pain on top of her chronic lower back issues. Pain management saw and evaluated the patient this morning. Patient had trigger point injections done to her lumbar area. Was up and moving with nursing staff afterwards with significant improvement in her ambulation. Pain management recommended starting the patient on a course of indomethacin and orphenadrine PRN for muscle spasms. May take OTC Tylenol. Pain management also recommended that the patient transitions to naproxen once the course of indomethacin is completed. DM Type II: Can resume taking her Ozempic at time of discharge. Hemoglobin A1c was 8.2% this admission. MISSY: Patient does not wear a CPAP HS although she has been recommended to do so in the past. Worried she will not hear messages or phone calls throughout the night when she is on-call. She is interested in meeting with [facility] again (as she has seen them in the past) - this can be arranged by her PCP. Other Chronic Medical Conditions: Hypothyroidism, HTN, HLD, anxiety --> Can continue home meds for these specific conditions at time of discharge. PCP: Edel Lisa, DO Disposition: Patient is being discharged home in stable condition. Patient seen in collaboration with Dr. Hall. Please see addendum. I spent a total of 50 minutes coordinating, documenting, and providing care for this patient excluding time spent in the performance of separately billed services. This included personally reviewing all current laboratories and imaging studies, medical reconciliation, outpatient chart review and discussion with specialists. This chart was completed in part utilizing Speech Voice Recognition Software. Grammatical errors, random word insertions, pronoun errors, and incomplete sentences are an occasional consequence of this system due to software limitations, ambient noise, and hardware issues. Any formal questions or concerns about the content, text, or information contained within the body of this dictation should be directly addressed to the provider for clarification. Home Health Attestation I certify that this patient is under my care and that I, or a physicians press operator assistant working with me, had a face to-face encounter that meets the home health [id number] encounter requirements with this patient. The encounter with the patient was in whole, or in part, for the following medical condition, which is the primary reason for home health care (list medical condition): I certify that, based on my findings, the following services are medically necessary home health services: My clinical findings support the need for the above services because: Further, I certify that my clinical findings support that this patient is homebound (i.e. absences from home require considerable and taxing effort and ar e for medical reasons or yarsanism services or infrequently or of short duration when for other reasons) because: Certification for Home Health Services: Based on the above findings, I certify that this patient is confined to the home and needs intermittent usp care, physical therapy and/or speech therapy or continues to need occupational therapy. The patient is under my care, and I have initiated the establishment of the plan of care. This patient will be followed by a physician who will periodically review the plan of care. Total Time Total Time Spent Total Time Spent (In Minutes): 50 Discharge Plan Discharge Items Patient Disposition: Home - Self-Care Reason For Visit: INTRACTABLE LOW BACK PAIN Discharge Diagnosis: Low Back Pain Likely 2/2 Musculoskeletal Strain Condition on Discharge: Good Activity: Resume your previous activity Lifting: No more than 10 pounds Exercise/Sports: Gradually increase as tolerated Driving/Machine Use: No limitations Weightbearing: Full weightbearing Non-emergency contact: Primary Care Provider Call non-emergency contact if: you have any medication questions, your symptoms worsen and your pain is not controlled Follow-up/Referrals: Edel Lisa DO [Primary Care Provider] - (Date & Time 02/09/2024 3:00 PM Provider Edel Lisa DO Department [facility] ) Diet: Regular Addtl Attending Provider Instructions: Angela Mp were admitted to the hospital due to low back pain. Your lumbar spine x-ray did not show any fractures or subluxation however did note degenerative changes. You also had a lumbar spine MRI completed which did not show any significant cord compression or spinal stenosis. You were seen and evaluated by orthopedic spinal surgery. Dr. Jcakson reviewed your imaging and recommended conservative treatment with no surgical intervention warranted. Determined you are dealing with an acute flare-up of lower back pain likely secondary to a musculoskeletal strain. You were seen and evaluated by pain management this morning as well. You received trigger point injections to your lumbar spine region. You are being sent home with a prescription for orphenadrine, which is a muscle relaxant medication to take as needed for muscle spasms. You are also being sent home with a prescription for a 7-day course of indomethacin, which is an nonsteroidal anti-inflammatory medication (NSAID) to help with your pain. These medications were sent to your [facility] in [place]. Please take both medications as prescribed! You may take [id number] Tylenol as needed for pain as well. Avoid taking any other NSAID medications while on indomethacin, including but not limited to Motrin and Aleve. Avoid soaking the area where trigger point injections were done for at least 48 hours. You can continue to apply heat and/or ice to your lower back area as needed. Avoid any strenuous activity or exercise that would involve the neck. You can try sleeping on your side with a pillow between your legs or put a pillow under your knees when you lie on your back. These measures can ease pain in your lower back. Avoid lifting anything over 5 pounds until your back pain fully resolves. UPCOMING FOLLOW-UP APPOINTMENT Date & Time: 02/09/2024 @ 3:00 PM Provider: Edel Lisa DO Department: [facility] SEEK MEDICAL ATTENTION IF YOU HAVE: * temperature above 101F * chest pain or trouble breathing * abdominal pain, nausea, vomiting * diarrhea, dark stools or bloody stools * any unanswered questions or concerns Call 911 if symptoms are severe. Please take good care of yourself. It has been a pleasure taking care of you. If you have any questions regarding your recent hospitalization please contact [facility] and request [facility] @ [phone]. Pending Studies at Discharge: No Stand-Alone Forms: My [facility], Work/School Release, Smoking Cessation Medications and DC Order Prescriptions: New orphenadrine citrate 100 mg tablet extended release 100 mg PO BID PRN (Reason: muscle spasm) Qty: 10 0RF indomethacin 25 mg capsule 25 mg PO TID 7 Days Qty: 21 0RF Rx Instructions: administer with food or milk famotidine [Pepcid] 20 mg tablet 20 mg PO BID 7 Days Qty: 14 0RF Rx Instructions: take twice a day for the duration of indomethacin. Continued levothyroxine 75 mcg Capsule 75 mcg PO QAM hydroxyzine HCl 25 mg tablet 25 mg PO TID PRN (Reason: Anxiety) lisinopril 5 mg tablet 5 mg PO QAM rosuvastatin 10 mg tablet 10 mg PO QAM Ozempic 0.25 mg or 0.5 mg (2 mg/3 mL) pen injector 0.25 mg SUBCUT .WEEKLY Discharge Orders: Discharge Order (Routine); Ordered 02/04/24 Ordered By: Angelina Garvey/Other Patient Handouts: Managing Type 2 Diabetes, Back Safety: Bending, Back Safety: Lifting, Self-Care for Low Back Pain, Back Exercises: Lower Back Stretch Admission Data Admit Date/Time: 02/02/24 12:17 Attending Provider: Yuriy Hall Admit Provider: Chito Petersen Primary Care Provider: Edel Lisa Other Providers: Chito Petersen; Davie Jackson; Rik Cleveland Other Interventions: Discharge Summary Assessment (RN) Last Done: 02/04/24 13:07 Supervising Physician Co-Signing Physician Notes Pt seen and examined and case d/w SREEDHAR Alfaro. Pt is s/p TPI, ambulating around better and feels confident enough to go home today. Pain Mx evals, recommends indomethacin and orphenadrine. Pt to f/u w/ pain Mx as OP. MRI L spine reviewed. A total of 20 minutes was spent in care coordination. I agree with the assessment and Plan per the RONA.
[2024-02-04 13:09] VITALS: BP 114/75
== END 2024-02-04 14:38 | disposition home or self-care (01) ==
LOC: ED 09:34 → EDINP 09:34 → SUATTDRO 12:17 → 3W 15:32